=== PATIENT | male | born 1935 | race Caucasian/White ===

== ENCOUNTER 2019-01-07 18:46 | Inpatient (IN) | payer MEDICARE, OTHER ==
[~2019-01-07] VITALS: Ht 179 cm; Wt 74.8 kg
[2019-01-07] MEDS ORDERED: NS IV 1000 ML 1,000 ML IV SCH (19:43)
[2019-01-07] MEDS ORDERED: NS IV 500 ML 500 ML IV ONE (19:43)
--- NOTE | 2019-01-07 19:43 | ED Syncope ---
General Chief Complaint: Dizziness/Syncope Stated Complaint: DIZZINESS; BP 101/50; HR 100 Nursing Triage Note: PT AMBULATE TO ROOM FS06 WITHOUT DIFFICULTY. PT C/O DIZZYNESS SINCE THIS MORNING AND A LOW DIASTOLIC BP WITH INCREASED PULSE. PT STATES HE IS NORMALLY DIZZY IN THE MORNING AND IT GOES AWAY BUT TODAY THE DIZZYNESS CONTINUED THROUGHOUT THE DAY. PT STATES HX OF AFIB. Source of Information: Patient Exam Limitations: No Limitations History of Present Illness Date Seen by Provider: Jan 07, 2019 Time Seen by Provider: 19:30 Initial Comments Pt here with near syncop/dizziness when he first got out of bed. THat is not unusual for him but it persisted throughout the day. He has not had a fall or passed out completely. Not on diuretics of BB's. Takes lisinopril. No CAD or CHF. No swelling, SOA or palpitations, CP. No S/S of infection, belly pain, N/V/D/C. No fever. He has noted his BP to be low all day around 100 systolic. Allergies and Home Medications Allergies Coded Allergies: No Known Drug Allergies (Unverified , 01/07/19) Patient Home Medication List Home Medication List Reviewed: Yes Review of Systems Constitutional: No chills, No diaphoresis EENTM: No ear discharge, No hearing loss Respiratory: cough; No dyspnea on exertion, No phlegm, No short of breath Cardiovascular: No edema; Hx of Intervention; No vascular heart diseas Gastrointestinal: No abdominal pain, No constipation, No diarrhea Genitourinary: No discharge, No dysuria Musculoskeletal: No back pain, No joint pain Skin: No pruritus, No rash Psychiatric/Neurological: Denies Headache, Denies Numbness, Denies Paresthesia Past Mqzcfsd-Bjnrpt-Lhtlzh Hx Patient Social History Alcohol Use: Denies Use Recreational Drug Use: No Smoking Status: Never a Smoker Recent Foreign Travel: No Contact w/Someone Who Travel: No Recent Infectious Disease Expo: No Physical Abuse: No Sexual Abuse: No Mistreated: No Fear: No Physical Exam Vital Signs Vital Signs - First Documented 01/07/19 19:31 Temp 36.5 Pulse 85 Resp 16 B/P (MAP) 107/71 (83) Pulse Ox 98 O2 Delivery Room Air Capillary Refill : Less Than 3 Seconds Height, Weight, BMI Height: '" Weight: lbs. oz. kg; 24.00 BMI Method: General Appearance: No Apparent Distress, WD/WN HEENT: PERRL/EOMI, TMs Normal, Normal ENT Inspection, Pharynx Normal, Moist Mucous Membranes Neck: Full Range of Motion, Normal Inspection, Non Tender Cardiovascular: Regular Rate, Rhythm, No Edema, Normal Peripheral Pulses Respiratory: Chest Non Tender, Lungs Clear, Normal Breath Sounds, No Accessory Muscle Use, No Respiratory Distress Gastrointestinal: Normal Bowel Sounds, Non Tender, Soft Extremities: Normal Capillary Refill, Normal Inspection, No Pedal Edema Neurologic/Psychiatric: Alert, Oriented x3 Cranial Nerves: Normal Hearing, Normal Speech, PERRL Skin: Normal Color, Warm/Dry Progress/Results/Core Measures Results/Orders Lab Results Laboratory Tests Test 01/07/19 19:15 01/07/19 19:51 Range/Units Urine Color YELLOW Urine Clarity CLEAR Urine pH 5.5 5-9 Urine Specific [place] 1.025 H 1.016-1.022 Urine Protein NEGATIVE NEGATIVE Urine Glucose (UA) NEGATIVE NEGATIVE Urine Ketones NEGATIVE NEGATIVE Urine Nitrite NEGATIVE NEGATIVE Urine Bilirubin NEGATIVE NEGATIVE Urine Urobilinogen 0.2 NORMAL MG/DL Urine Leukocyte Esterase NEGATIVE NEGATIVE Urine RBC (Auto) NEGATIVE NEGATIVE Urine RBC RARE /HPF Urine WBC 0-2 /HPF Urine Squamous Epithelial Cells 5-10 /HPF Urine Crystals NONE /LPF Urine Bacteria NEGATIVE /HPF Urine Casts NONE /LPF Urine Mucus NEGATIVE /LPF Urine Culture Indicated NO White Blood Count 5.7 4.3-11.0 10^3/uL Red Blood Count 3.61 L 4.35-5.85 10^6/uL Hemoglobin 11.6 L 13.3-17.7 G/DL Hematocrit 35 L 40-54 % Mean Corpuscular Volume 98 80-99 FL Mean Corpuscular Hemoglobin 32 25-34 PG Mean Corpuscular Hemoglobin Concent 33 32-36 G/DL Red Cell Distribution Width 13.5 10.0-14.5 % Platelet Count 248 130-400 10^3/uL Mean Platelet Volume 10.0 7.4-10.4 FL Neutrophils (%) (Auto) 61 42-75 % Lymphocytes (%) (Auto) 20 12-44 % Monocytes (%) (Auto) 13 H 0-12 % Eosinophils (%) (Auto) 6 0-10 % Basophils (%) (Auto) 0 0-10 % Neutrophils # (Auto) 3.5 1.8-7.8 X 10^3 Lymphocytes # (Auto) 1.1 1.0-4.0 X 10^3 Monocytes # (Auto) 0.7 0.0-1.0 X 10^3 Eosinophils # (Auto) 0.3 0.0-0.3 10^3/uL Basophils # (Auto) 0.0 0.0-0.1 10^3/uL Sodium Level 138 135-145 MMOL/L Potassium Level 4.4 3.6-5.0 MMOL/L Chloride Level 106 98-107 MMOL/L Carbon Dioxide Level 24 21-32 MMOL/L Anion Gap 8 5-14 MMOL/L Blood Urea Nitrogen 27 H 7-18 MG/DL Creatinine 1.33 H 0.60-1.30 MG/DL Estimat Glomerular Filtration Rate 51 BUN/Creatinine Ratio 20 Glucose Level 184 H 70-105 MG/DL Calcium Level 9.3 8.5-10.1 MG/DL Corrected Calcium 9.7 8.5-10.1 MG/DL Total Bilirubin 0.2 0.1-1.0 MG/DL Aspartate Amino Transf (AST/SGOT) 17 5-34 U/L Alanine Aminotransferase (ALT/SGPT) 12 0-55 U/L Alkaline Phosphatase 57 40-136 U/L Troponin I 0.32 *H <0.30 NG/ML Pro-B-Type Natriuretic Peptide 1890.0 H <75.0 PG/ML Total Protein 6.0 L 6.4-8.2 GM/DL Albumin 3.5 3.2-4.5 GM/DL My Orders Orders - CHRISTINA BEAL Cbc With Automated Diff (01/07/19 19:43) Comprehensive Metabolic Panel (01/07/19 19:43) Ua Culture If Indicated (01/07/19 19:43) Troponin I (01/07/19 19:43) Probnp Fs (01/07/19 19:43) Chest Pa/Lat (2 View) (01/07/19 19:43) Ed Iv/Invasive Line Start (01/07/19 19:43) Ns Iv 500 Ml (Sodium Chloride 0.9%) (01/07/19 19:43) Ns Iv 1000 Ml (Sodium Chloride 0.9%) (01/07/19 19:43) Orthostatic Vital Signs (Adult (01/07/19 19:43) Continuous Ekg Monitoring (01/07/19 19:43) Ekg Tracing (01/07/19 19:43) Aspirin Chewable Tablet (Baby Aspirin Ch (01/07/19 21:30) Ekg Tracing (01/07/19 21:19) Enoxaparin Injection (Lovenox Injection) (01/07/19 22:30) Metoprolol Succinate (Xl) Tab (Toprol Xl (01/07/19 23:00) Medications Given in ED Current Medications Medications Dose Ordered Sig/Gena Route Start Time Stop Time Status Last Admin Dose Admin Aspirin 324 mg ONCE ONCE PO 01/07/19 21:30 01/07/19 21:31 DC 01/07/19 21:36 324 MG Enoxaparin Sodium 80 mg ONCE ONCE SC 01/07/19 22:30 01/07/19 22:31 DC 01/07/19 22:36 80 MG Metoprolol Succinate 25 mg ONCE ONCE PO 01/07/19 23:00 01/07/19 23:01 DC 01/07/19 23:35 25 MG Sodium Chloride 500 ml @ 0 mls/hr Q0M ONCE IV 01/07/19 19:43 01/07/19 19:48 DC 01/07/19 21:00 999 MLS/HR Vital Signs/I&O 01/07/19 01/07/19 19:31 20:30 Temp 36.5 Pulse 85 70 80 75 Resp 16 B/P (MAP) 107/71 (83) 98/58 (71) 100/46 (64) 97/51 (66) Pulse Ox 98 O2 Delivery Room Air 01/08/19 00:00 Intake Total 1500 ml Balance 1500 ml Blood Pressure Mean: 83 Progress Progress Note : Time: 22:43 Progress Note Aspirin, Lovenox, metoprolol 25, transferred via [facility]. Initial ECG Impression Date: Jan 07, 2019 Initial ECG Impression Time: 19:52 Initial ECG Rate: 79 Initial ECG Rhythm: A Fib/Flutter Initial ECG Intervals: QT (436) Initial ECG Impression: Nonspecific Changes, Atrial Fibrillation Comment Atrial fibrillation without clinically significant ST elevation or depression. EKG : EKG Time: 21:21 Rate: 88 Rhythm: A Fib/Flutter Intervals: QT (484) ECG Comparisson: Unchanged ECG Impression: Nonspecific Changes, Atrial Fibrillation Comment Atrial fibrillation without ST elevation or depression. Departure Communication (Admissions) Time/Spoke to Admitting Phy: 20:25 Dr. Hay agrees to admit the patient for a non-STEMI. Time/Spoke to Consulting Phy: 20:20 Dr. Fonseca agrees to consult on the patient. He agrees with aspirin, Lovenox. Impression Primary Impression: NSTEMI (non-ST elevated myocardial infarction) Additional Impression: Near syncope Disposition: ADMITTED INPATIENT Condition: Stable Admissions Decision to Admit Reason: Admit from ER (General) Decision to Admit/Date: Jan 07, 2019 Time/Decision to Admit Time: 20:00 Departure-Patient Inst. Referrals: TJ SALES APRN (PCP) Primary Care Physician [facility]/JONNY (Family) Primary Care Physician CHRISTINA BEAL Jan 07, 2019 19:43
[2019-01-07 19:52] LABS: BACTERIA,URINE NEGATIVE /HPF; BILIRUBIN,URINE NEGATIVE (NEGATIVE); CLARITY,URINE CLEAR; COLOR,URINE YELLOW; GLUCOSE, URINE (UA) NEGATIVE (NEGATIVE); KETONES,URINE NEGATIVE (NEGATIVE); LEUKOCYTE ESTERASE ,URINE NEGATIVE (NEGATIVE); NITRITE,URINE NEGATIVE (NEGATIVE); PH,URINE 5.5 (5-9); PROTEIN,URINE NEGATIVE (NEGATIVE); RBC,URINE RARE /HPF; UROBILINOGEN,URINE 0.2 MG/DL (NORMAL); WBC,URINE 0-2 /HPF
[2019-01-07 20:22] LABS: BASOPHILS % (AUTO) 0 % (0-10); EOSINOPHILS # (AUTO) 0.3 10^3/uL (0.0-0.3); EOSINOPHILS % (AUTO) 6 % (0-10); HEMATOCRIT 35 % (40-54); HEMOGLOBIN 11.6 G/DL (13.3-17.7); LYMPHOCYTES # (AUTO) 1.1 X 10^3 (1.0-4.0); LYMPHOCYTES % (AUTO) 20 % (12-44); MEAN CORPUSCULAR HEMOGLOBIN 32 PG (25-34); MEAN CORPUSCULAR HGB CONC 33 G/DL (32-36); MEAN CORPUSCULAR VOLUME 98 FL (80-99); MONOCYTES # (AUTO) 0.7 X 10^3 (0.0-1.0); MONOCYTES % (AUTO) 13 % (0-12); NEUTROPHILS # (AUTO) 3.5 X 10^3 (1.8-7.8); NEUTROPHILS % (AUTO) 61 % (42-75); PLATELET COUNT 248 10^3/uL (130-400); RED CELL DISTRIBUTION WIDTH 13.5 % (10.0-14.5); WHITE BLOOD COUNT 5.7 10^3/uL (4.3-11.0)
[2019-01-07 20:30] VITALS: BP_SYST 100; BP_SYST 97; BP_SYST 98; BP_DIAS 46; BP_DIAS 51; BP_DIAS 58
[2019-01-07 20:37] LABS: BILIRUBIN,TOTAL 0.2 MG/DL (0.1-1.0); CALCIUM 9.3 MG/DL (8.5-10.1); CREATININE SERUM 1.33 MG/DL (0.60-1.30); POTASSIUM 4.4 MMOL/L (3.6-5.0)
[2019-01-07 20:38] LABS: ALBUMIN 3.5 GM/DL (3.2-4.5)
--- NOTE | 2019-01-07 20:56 | Diagnostic Imaging Report ---
INDICATION: Dizziness and tachycardia PA and lateral views of the chest are obtained. No previous studies available at this time for comparison. There is mild air trapping, bilaterally. Prominent interstitial markings are seen throughout the lungs. There is no evidence of pneumothorax, consolidation or pleural fluid. There is mild diffuse thoracic spondylosis. Monitoring leads overlie the chest. IMPRESSION: Findings indicate emphysema without other acute abnormality appreciated. Dictated by: Dictated on workstation # [id number]
[2019-01-07] MEDS ORDERED: ASPIRIN 81 MG CHEW (CHILDREN'S ASA) PO ONE (21:30)
[2019-01-07] MEDS ORDERED: ENOXAPARIN 80 MG/0.8 ML (LOVENOX) SYR SC ONE (22:30)
[2019-01-08] VITALS (13 sets, daily range): BP systolic 73–121; BP diastolic 50–75
--- NOTE | 2019-01-08 00:16 | NUR ---
TAYLOR CANCINO admitted to room CU2-1, with an admitting diagnosis of NSTEMI, on 01/07/19 from [facility] via [facility], accompanied by [facility]. TAYLOR CANCINO introduced to surroundings, call light, bed controls, phone, TV, temperature control, lights, meal times, smoking policy, visitor policy, side rail policy, bathrooms and showers. Patient Rights given to patient in the handbook. TAYLOR CANCINO verbalizes understanding that [facility] is not responsible for the loss or damage to any personal effects or valuables that are kept in the patients possession during their hospitalization.
--- NOTE | 2019-01-08 00:29 | NUR ---
CALLED [facility] TO OBTAIN REPORT FROM JAIME JAMES.
[2019-01-08] MEDS ORDERED: 1/2 NS IV SOLUTION 1,000 ML IV ONE (00:56)
[2019-01-08] MEDS ORDERED: morphine INJ 4 MG/ML 1 ML (VIAL/SYRINGE) IV PRN (02:00)
[2019-01-08] MEDS ORDERED: NITROGLYCERIN 0.4 MG SL TABS BTL 25'S SL PRN (02:00)
[2019-01-08] MEDS ORDERED: ONDANSETRON 4 MG/2 ML (SDV) Z0FRAN IV PRN (02:00)
[2019-01-08 02:11] LABS: BASOPHILS % (AUTO) 0 % (0-10); EOSINOPHILS # (AUTO) 0.3 10^3/uL (0.0-0.3); EOSINOPHILS % (AUTO) 6 % (0-10); HEMATOCRIT 32 % (40-54); HEMOGLOBIN 10.5 G/DL (13.3-17.7); LYMPHOCYTES # (AUTO) 1.3 X 10^3 (1.0-4.0); LYMPHOCYTES % (AUTO) 23 % (12-44); MEAN CORPUSCULAR HEMOGLOBIN 33 PG (25-34); MEAN CORPUSCULAR HGB CONC 33 G/DL (32-36); MEAN CORPUSCULAR VOLUME 99 FL (80-99); MEAN PLATELET VOLUME 10.1 FL (7.4-10.4); MONOCYTES # (AUTO) 0.8 X 10^3 (0.0-1.0); MONOCYTES % (AUTO) 14 % (0-12); NEUTROPHILS # (AUTO) 3.1 X 10^3 (1.8-7.8); NEUTROPHILS % (AUTO) 56 % (42-75); PLATELET COUNT 202 10^3/uL (130-400); RED CELL DISTRIBUTION WIDTH 13.7 % (10.0-14.5); WHITE BLOOD COUNT 5.5 10^3/uL (4.3-11.0)
[2019-01-08] MEDS: 1/2 NS IV SOLUTION 1,000 ML IV SCH ×4 (02:26→22:50)
[2019-01-08 02:28] LABS: ALANINE AMINOTRANSFERASE 10 U/L (0-55); ALBUMIN 3.2 GM/DL (3.2-4.5); ALKALINE PHOSPHATASE 45 U/L (40-136); BILIRUBIN,TOTAL 0.3 MG/DL (0.1-1.0); BUN/CREATININE RATIO 17; CALCIUM 8.5 MG/DL (8.5-10.1); CARBON DIOXIDE 23 MMOL/L (21-32); CHLORIDE 109 MMOL/L (98-107); CREATININE SERUM 1.36 MG/DL (0.60-1.30); GFR ESTIMATED 50; GLUCOSE 196 MG/DL (70-105); POTASSIUM 3.9 MMOL/L (3.6-5.0); SODIUM 140 MMOL/L (135-145)
[2019-01-08] MEDS: inSUlin ASPART (NovoLOG) 1 UNIT/0.01 ML (CHARGE PER UNIT) SC SCH ×4 (06:00→20:21)
--- NOTE | 2019-01-08 07:57 | Diagnostic Imaging Report ---
INDICATION: Heart disease. Comparison made with prior examination 01/07/2019. FINDINGS: Heart size is stable. There is some air-trapping compatible with COPD. Patchy right base infiltrate. There is no pleural effusion or pneumothorax. Mediastinum is unremarkable. IMPRESSION: COPD with patchy right base infiltrate. Superimposed pneumonia certainly cannot be excluded. Recommend clinical correlation. Dictated by: Dictated on workstation # [id number]
[2019-01-08] MEDS ORDERED: ENOXAPARIN 100 MG/1 ML (LOVENOX) SYR SC SCH (08:15)
[2019-01-08] MEDS: ASPIRIN E.C. 81 MG (ECOTRIN) TAB PO SCH (08:16)
[2019-01-08] MEDS: meTOprolol TARTRATE 25 MG (LOPRESSOR) TABLET PO SCH ×2 (08:16→20:21)
--- NOTE | 2019-01-08 08:19 | Consultation-Cardiology ---
HPI-Cardiology Cardiology Consultation Date of Consultation 01/08/19 Date of Admission Time Seen by Provider: 08:13 Indication: atrial fibrillation HPI 83 years old gentleman with history of hypertension, reporting one episode of atrial fibrillation in the remote past after next surgery. Woke up yesterday feeling lightheaded and dizzy, noted to be hypotensive, has been having o rthostatic dizziness persisted throughout the day came into the emergency room and noted to be hypotensive. Denied any chest pain. Denied any palpitation. Denied any syncope or near syncopal episodes. No claudications. Home Medications & Allergies Allergies: Coded Allergies: No Known Drug Allergies (Unverified , 01/07/19) Home Medication List Reviewed: Yes WOV-Boicfr-Reeacq Hx Patient Social History Marital Status: Employed/Student: retired Alcohol Use: Denies Use Recreational Drug Use: No Smoking Status: Never a Smoker Type Used: Cigars 2nd Hand Smoke Exposure: No Recent Foreign Travel: No Recent Infectious Disease Expo: No Recent Hopitalizations: No Immunizations Up To Date Date of Pneumonia Vaccine: Jan 09, 2016 Past Medical History Discussed below Family Medical History Family History: CANCER 19 MOTHER Review of Systems-General Review of Systems Constitutional: see HPI; No chills, No diaphoresis; dizziness, malaise EENTM: see HPI; No ear discharge, No hearing loss Respiratory: see HPI, cough; No dyspnea on exertion, No phlegm, No short of breath Cardiovascular: see HPI; No chest pain, No edema, No Hx of Intervention, No palpitations, No syncope, No vascular heart diseas, No other Gastrointestinal: no symptoms reported, see HPI; No abdominal pain, No constipation, No diarrhea Genitourinary: no symptoms reported, see HPI; No discharge, No dysuria Musculoskeletal: no symptoms reported, see HPI; No back pain, No joint pain Skin: no symptoms reported, see HPI; No pruritus, No rash Psychiatric/Neurological: No Symptoms Reported, See HPI; Denies Headache, Denies Numbness, Denies Paresthesia Reviewed Test Results Reviewed Test Results Lab Laboratory Tests Test 01/07/19 19:15 01/07/19 19:51 01/08/19 02:02 01/08/19 08:03 Range/Units Urine Color YELLOW Urine Clarity CLEAR Urine pH 5.5 5-9 Urine Specific [place] 1.025 H 1.016-1.022 Urine Protein NEGATIVE NEGATIVE Urine Glucose (UA) NEGATIVE NEGATIVE Urine Ketones NEGATIVE NEGATIVE Urine Nitrite NEGATIVE NEGATIVE Urine Bilirubin NEGATIVE NEGATIVE Urine Urobilinogen 0.2 NORMAL MG/DL Urine Leukocyte Esterase NEGATIVE NEGATIVE Urine RBC (Auto) NEGATIVE NEGATIVE Urine RBC RARE /HPF Urine WBC 0-2 /HPF Urine Squamous Epithelial Cells 5-10 /HPF Urine Crystals NONE /LPF Urine Bacteria NEGATIVE /HPF Urine Casts NONE /LPF Urine Mucus NEGATIVE /LPF Urine Culture Indicated NO White Blood Count 5.7 5.5 4.3-11.0 10^3/uL Red Blood Count 3.61 L 3.22 L 4.35-5.85 10^6/uL Hemoglobin 11.6 L 10.5 L 13.3-17.7 G/DL Hematocrit 35 L 32 L 40-54 % Mean Corpuscular Volume 98 99 80-99 FL Mean Corpuscular Hemoglobin 32 33 25-34 PG Mean Corpuscular Hemoglobin Concent 33 33 32-36 G/DL Red Cell Distribution Width 13.5 13.7 10.0-14.5 % Platelet Count 248 202 130-400 10^3/uL Mean Platelet Volume 10.0 10.1 7.4-10.4 FL Neutrophils (%) (Auto) 61 56 42-75 % Lymphocytes (%) (Auto) 20 23 12-44 % Monocytes (%) (Auto) 13 H 14 H 0-12 % Eosinophils (%) (Auto) 6 6 0-10 % Basophils (%) (Auto) 0 0 0-10 % Neutrophils # (Auto) 3.5 3.1 1.8-7.8 X 10^3 Lymphocytes # (Auto) 1.1 1.3 1.0-4.0 X 10^3 Monocytes # (Auto) 0.7 0.8 0.0-1.0 X 10^3 Eosinophils # (Auto) 0.3 0.3 0.0-0.3 10^3/uL Basophils # (Auto) 0.0 0.0 0.0-0.1 10^3/uL Sodium Level 138 140 135-145 MMOL/L Potassium Level 4.4 3.9 3.6-5.0 MMOL/L Chloride Level 106 109 H 98-107 MMOL/L Carbon Dioxide Level 24 23 21-32 MMOL/L Anion Gap 8 8 5-14 MMOL/L Blood Urea Nitrogen 27 H 23 H 7-18 MG/DL Creatinine 1.33 H 1.36 H 0.60-1.30 MG/DL Estimat Glomerular Filtration Rate 51 50 BUN/Creatinine Ratio 20 17 Glucose Level 184 H 196 H 70-105 MG/DL Calcium Level 9.3 8.5 8.5-10.1 MG/DL Corrected Calcium 9.7 9.1 8.5-10.1 MG/DL Total Bilirubin 0.2 0.3 0.1-1.0 MG/DL Aspartate Amino Transf (AST/SGOT) 17 18 5-34 U/L Alanine Aminotransferase (ALT/SGPT) 12 10 0-55 U/L Alkaline Phosphatase 57 45 40-136 U/L Troponin I 0.32 *H < 0.028 <0.028 NG/ML Pro-B-Type Natriuretic Peptide 1890.0 H <75.0 PG/ML Total Protein 6.0 L 5.0 L 6.4-8.2 GM/DL Albumin 3.5 3.2 3.2-4.5 GM/DL Physical Exam Physical Exam Vital Signs Vital Signs - First Documented 01/07/19 19:31 Temp 36.5 Pulse 85 Resp 16 B/P (MAP) 107/71 (83) Pulse Ox 98 O2 Delivery Room Air Capillary Refill : Less Than 3 Seconds Height, Weight, BMI Height: '" Weight: 161lbs. 0.5oz. [id number]; 24.18 BMI Method: General Appearance: No Apparent Distress, WD/WN HEENT: PERRL/EOMI, TMs Normal, Normal ENT Inspection, Pharynx Normal, Moist Mucous Membranes Neck: Full Range of Motion, Normal Inspection, Non Tender Respiratory: Chest Non Tender, Lungs Clear, Normal Breath Sounds, No Accessory Muscle Use, No Respiratory Distress Cardiovascular: No Edema, Normal Peripheral Pulses, Irregularly Irregular Gastrointestinal: Normal Bowel Sounds, Non Tender, Soft Extremity: Normal Capillary Refill, Normal Inspection, No Pedal Edema Neurologic/Psychiatric: Alert, Oriented x3 Skin: Normal Color, Warm/Dry A/P-Cardiology Admission Diagnosis Dizziness Acute atrial fibrillation Hypotension Diabetes mellitus Assessment/Plan Dizziness and lightheadedness, probably secondary to hypotension, receiving IV fluid. Continue to monitor. New-onset atrial fibrillation, had one episode of atrial fibrillation in the remote past after neck surgery. Rate is controlled, I'll start him on Lovenox and continue beta blockers, if he did not convert overnight we will consider OLIVIA and cardioversion Mild elevation in initial troponin returned to normal, no significant abnormality was noted, probably normal variant. Borderline hypotension, has been on lisinopril, it is on hold at this time and we're using beta blockers, continue IV fluid and monitor Diabetes mellitus, followed and managed by primary care physician History of neck surgery Clinical Quality Measures DVT/VTE Risk/Contraindication: Risk Factor Score Per Nursin RFS Level Per Nursing on Admit: 2=Moderate KATTY JORDAN MD Jan 08, 2019 08:19
[2019-01-08] MEDS ORDERED: MULT-850 PO (10:07)
[2019-01-08] MEDS ORDERED: OMEP20TA33 PO (10:07)
[2019-01-08] MEDS ORDERED: LISI10TA2 PO (10:07)
[2019-01-08] MEDS ORDERED: METF-399 PO (10:07)
[2019-01-08] MEDS ORDERED: ALFU10TA11 PO (10:07)
[2019-01-08] MEDS ORDERED: FINA5TAB6 PO (10:07)
[2019-01-08] MEDS ORDERED: FOLI0.4T2 PO (10:07)
[2019-01-08] MEDS ORDERED: GLIP5TAB13 PO (10:07)
[2019-01-08] MEDS ORDERED: NIAC1CAP PO (10:07)
[2019-01-08] MEDS: ENOXAPARIN 80 MG/0.8 ML (LOVENOX) SYR SC SCH ×2 (10:10→20:21)
[2019-01-08] MEDS ORDERED: SILD20TA14 PO (10:11)
[2019-01-08] MEDS ORDERED: METH2.5T PO (10:11)
[2019-01-08] MEDS ORDERED: SIMV20TA3 PO (10:13)
--- NOTE | 2019-01-08 10:15 | NUR ---
SPOKE WITH THE PATIENT ABOUT HIS MEDICATIONS. HE WAS ABLE TO LIST THEM TO ME WITH THE STRENGTHS AND FREQUENCIES. I VERIFIED IT WITH THE EXT MED HX. IN ADDITION TO THE EXT MED HX [facility] FILLED: 11-17-18 SIMVASTATIN 20MG HS #90 [facility] FILLED: 12-18-18 VIAGRA 20MG PRN HE ALSO RECEIVES METHOTREXATE 2.5MG TABS FROM [facility], HE STATES HE TAKES 10MG ON WEDNESDAYS. 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 OTC MEDS: FOLIC ACID 0.4MG 3 TABS ON DAYS HE IS NOT TAKING METHOTREXATE (ALL DAYS BUT SAT) CENTRUM SILVER DAILY NIACIN HS PRILOSEC PRN
--- NOTE | 2019-01-08 11:00 | NUR ---
Attempted visit: Pt and female visitor in room resting with eyes closed at this time.
--- NOTE | 2019-01-08 12:50 | History & Physical-Hospitalist ---
History of Present Illness HPI/Chief Complaint Chief complaint: Dizziness HPI: This is a 83yoWM clinic [facility] had no cardiac history who presents with dizziness found to have elevated Troponin at [facility] and found to have Atrial Fibrillation with rapid ventricular response. Pt had an uneventful night in cardiac step-down. Dr. Fonseca has been consulted and will perform a OLIVIA with cardioversion tomorrow if he still remains in Atrial- Fibrillation and Pt will be able to eat his meals today and then NPO after midnight for procedure. 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 Source: patient Exam Limitations: no limitations Date Seen 01/08/19 Time Seen by a Provider: 09:00 Attending Physician Tyra Bess Amanda S Aprn Referring Physician Date of Admission Jan 07, 2019 at 22:45 Home Medications & Allergies Home Medications Reviewed patient Home Medication Reconciliation performed by pharmacy medication reconciliations networking technician and/or nursing. Patients Allergies have been reviewed. Allergies Allergies Coded Allergies No Known Drug Allergies (Unverified01/07/19) Past Czpfgmb-Temtsj-Wodhmk Hx Past Med/Social Hx: Reviewed Nursing Past Med/Soc Hx, Reviewed and Corrections made Patient Social History Marrital Status: , cohabiting Employed/Student: retired Alcohol Use: Denies Use Recreational Drug Use: No Smoking Status: Never a Smoker Former Smoker, Quit: Dec 21, 1996 Type Used: Cigars 2nd Hand Smoke Exposure: No Recent Foreign Travel: No Contact w/other who traveled: No Recent Hopitalizations: No Recent Infectious Disease Expo: No Immunizations Up To Date Date of Pneumonia Vaccine: Jan 09, 2016 Seasonal Allergies Seasonal Allergies: Yes Past Medical History Surgeries: Appendectomy Cardiac: High Cholesterol, Hypertension Genitourinary: Prostate Problems Endocrine: Diabetes, Non-Insulin dep HEENT: Cataract Loss of Vision: Denies Hearing Impairment: Hard of Hearing, Hearing Aide Right, Hearing Aide Left Skin/Integumentary: Psoriasis History of Blood Disorders: No Family History CANCER 19 MOTHER Review of Systems Constitutional: see HPI, dizziness Cardiovascular: chest pain, palpitations Physical Exam Physical Exam Vital Signs Vital Signs - First Documented 01/07/19 19:31 Temp 36.5 Pulse 85 Resp 16 B/P (MAP) 107/71 (83) Pulse Ox 98 O2 Delivery Room Air Capillary Refill : Less Than 3 Seconds Height, Weight, BMI Height: '" Weight: 161lbs. 0.5oz. 73.522277lj; 24.18 BMI Method: General Appearance: No Apparent Distress, WD/WN Eyes: Right Eye Normal Inspection, Right Eye PERRL HEENT: PERRL/EOMI, Normal ENT Inspection, Pharynx Normal, Moist Mucous Membranes Neck: Full Range of Motion, Normal Inspection, Non Tender Respiratory: Chest Non Tender, Lungs Clear, Normal Breath Sounds, No Accessory Muscle Use, No Respiratory Distress Cardiovascular: No Edema, No Gallop, No JVD, No Murmur, Normal Peripheral Pulses, Irregularly Irregular Gastrointestinal: Normal Bowel Sounds, No Organomegaly, No Pulsatile Mass, Non Tender, Soft Back: Normal Inspection, No CVA Tenderness, No Vertebral Tenderness Extremity: Normal Capillary Refill, Normal Inspection, Normal Range of Motion, Non Tender, No Calf Tenderness, No Pedal Edema Neurologic/Psychiatric: Alert, Oriented x3, No Motor/Sensory Deficits, Normal Mood/Affect Skin: Normal Color, Warm/Dry Lymphatic: No Adenopathy Results Results/Procedures Labs Laboratory Tests 01/07/19 19:51 01/08/19 02:02 Patient resulted labs reviewed. Assessment/Plan Admission Diagnosis Assessment: AF w/RVR NSTEMI Plan: Appreciate Dr Marian BAKER Admission Status: Inpatient Order (span 2 midnights) Reason for Inpatient Admission: NSTEMI with AF w/RVR Diagnosis/Problems Diagnosis/Problems (1) Near syncope Status: Acute (2) Troponin level elevated Status: Acute (3) NSTEMI (non-ST elevated myocardial infarction) Status: Acute (4) Atrial fibrillation with rapid ventricular response Status: Acute Clinical Quality Measures DVT/VTE Risk/Contraindication: Risk Factor Score Per Nursin RFS Level Per Nursing on Admit: 2=Moderate TYRA BESS DO Jan 08, 2019 12:50
[2019-01-09] VITALS (9 sets, daily range): BP systolic 104–136; BP diastolic 67–133
[2019-01-09 03:45] LABS: HEMOGLOBIN 11.2 G/DL (13.3-17.7); MEAN PLATELET VOLUME 10.4 FL (7.4-10.4); RED CELL DISTRIBUTION WIDTH 14.1 % (10.0-14.5); WHITE BLOOD COUNT 5.3 10^3/uL (4.3-11.0)
[2019-01-09 04:19] LABS: ALBUMIN 3.3 GM/DL (3.2-4.5); BILIRUBIN,TOTAL 0.3 MG/DL (0.1-1.0); CALCIUM 8.4 MG/DL (8.5-10.1); CREATININE SERUM 1.2 MG/DL (0.60-1.30); MAGNESIUM 1.7 MG/DL (1.6-2.4); POTASSIUM 3.9 MMOL/L (3.6-5.0); TOTAL PROTEIN 5.3 GM/DL (6.4-8.2)
[2019-01-09] MEDS: inSUlin ASPART (NovoLOG) 1 UNIT/0.01 ML (CHARGE PER UNIT) SC SCH ×4 (05:58→21:41)
--- NOTE | 2019-01-09 07:44 | Cardiology Progress Note ---
Subjective Date Seen by Provider: Jan 09, 2019 Time Seen by Provider: 07:43 Subjective/Events-last exam Patient is in bed, feeling better, less dizzy Review of Systems General: No Chills, No Night Sweats, No Fatigue, No Malaise, No Appetite, No Other HEENT: No Head Aches, No Visual Changes, No Eye Pain, No Ear Pain, No Dysphasia, No Sinus Congestion, No Post Nasal Drip, No Sore Throat, No Other Pulmonary: No Dyspnea, No Cough, No Pleuritic Chest Pain, No Other Cardiovascular: No: Chest Pain, Palpitations, Orthopnea, Paroxysmal Noc. Dyspnea, Edema, Lt Headedness, Other Objective-Cardiology Exam Last Set of Vital Signs Vital Signs 01/09/19 01/09/19 03:30 04:00 Temp 36.4 Pulse 71 Resp 11 B/P (MAP) 105/96 (99) Pulse Ox 97 O2 Delivery Room Air Capillary Refill : Less Than 3 Seconds I&O Intake and Output 01/09/19 00:00 Intake Total 1910 ml Output Total 2175 ml Balance -265 ml Intake Oral 910 ml IV Total 1000 ml Output Urine Total 2175 ml # Voids 2 # Bowel Movements 1 Daily Weight Change No General: Alert, Oriented X3, Cooperative HEENT: Atraumatic, PERRLA Neck: Supple, No JVD, No Thyromegaly Lungs: Clear to Auscultation, Normal Air Movement Heart: Regular Rate, Normal S1, Normal S2, No Murmurs Abdomen: Normal Bowel Sounds, Soft, No Tenderness, No Hepatosplenomegaly, No Masses Extremities: No Clubbing, No Cyanosis, No Edema, Normal Pulses, No Tenderness/Swelling Skin: No Rashes, No Breakdown, No Significant Lesion Neuro: Normal Gait, Normal Speech, Strength at 5/5 X4 Ext, Normal Tone, Sensation Intact Psych/Mental Status: Mental Status NL, Mood NL Results Lab Laboratory Tests 01/09/19 03:00 A/P-Cardiology Admission Diagnosis Dizziness Acute atrial fibrillation Hypotension Diabetes mellitus Assessment/Plan Dizziness and lightheadedness, better at this time. Continue to monitor New-onset atrial fibrillation, had one episode of atrial fibrillation in the remote past after neck surgery. Maintained on Lovenox, planning for OLIVIA and electrical cardioversion today Mild elevation in initial troponin returned to normal, no significant abnormality was noted, probably normal variant. Borderline hypotension, has been on lisinopril, it is on hold at this time and we're using beta blockers, continue IV fluid and monitor Diabetes mellitus, followed and managed by primary care physician History of neck surgery Clinical Quality Measures DVT/VTE Risk/Contraindication: Risk Factor Score Per Nursin RFS Level Per Nursing on Admit: 2=Moderate KATTY JORDAN MD Jan 09, 2019 07:44
[2019-01-09] MEDS: ENOXAPARIN 80 MG/0.8 ML (LOVENOX) SYR SC SCH (08:40)
[2019-01-09] MEDS ORDERED: LIDOCAINE 2% VISCOUS 15 ML UDC ONE ×2 (10:11→11:49)
[2019-01-09] MEDS ORDERED: proPOfol 200 MG/20 ML (DIPRIVAN) VIAL IV ONE ×2 (10:21→12:14)
--- NOTE | 2019-01-09 11:54 | Progress Note - Hospitalist ---
Subjective HPI/CC On Admission Date Seen by Provider: Jan 09, 2019 Time Seen by Provider: 10:20 Chief complaint: Dizziness HPI: This is a 83yoWM clinic Pt of [facility] who has had no cardiac history who presents with dizziness found to have elevated Troponin at [facility] and found to have Atrial Fibrillation with rapid ventricular response. Pt had an uneventful night in cardiac step-down. Dr. Fonseca has been consulted and will perform a OLIVIA with cardioversion tomorrow if he still remains in Atrial- Fibrillation and Pt will be able to eat his meals today and then NPO after midnight for procedure. 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 Subjective/Events-last exam Patient doing well Family at the bedside Dr. Fonseca will perform OLIVIA and then cardioversion if no thrombosis noted Denies any pain Didn't sleep well last night Review of Systems General: Fatigue Objective Exam Vital Signs Vital Signs Date Time Temp Pulse Resp B/P (MAP) Pulse Ox O2 Delivery O2 Flow Rate FiO2 01/10/19 09:00 96 Room Air 01/10/19 07:00 56 01/10/19 07:00 36.3 01/10/19 04:00 18 130/90 (103) Capillary Refill : Less Than 3 Seconds General Appearance: No Apparent Distress, WD/WN Respiratory: Chest Non Tender, Lungs Clear, Normal Breath Sounds, No Accessory Muscle Use, No Respiratory Distress Cardiovascular: No Edema, No Gallop, No JVD, No Murmur, Normal Peripheral Pulses, Irregularly Irregular Neurologic/Psychiatric: Alert, Oriented x3, No Motor/Sensory Deficits, Normal Mood/Affect Results/Procedures Lab Patient resulted labs reviewed. Assessment/Plan Assessment and Plan Assess & Plan/Chief Complaint Assessment: New-onset atrial fibrillation with rapid ventricular response to undergo OLIVIA with cardioversion today Plan: OLIVIA with cardioversion Dr. Fonseca expertise is appreciated Diagnosis/Problems Diagnosis/Problems (1) Near syncope Status: Acute (2) Troponin level elevated Status: Acute (3) NSTEMI (non-ST elevated myocardial infarction) Status: Acute (4) Atrial fibrillation with rapid ventricular response Status: Acute Clinical Quality Measures DVT/VTE Risk/Contraindication: Risk Factor Score Per Nursin RFS Level Per Nursing on Admit: 2=Moderate JD BESS DO Jan 09, 2019 11:54
--- NOTE | 2019-01-09 12:09 | Cardiac Procedure Note-CS/ASA ---
Pre-Procedure Note Pre-Op Procedure Note H&P Reviewed The H&P was reviewed, patient examined and no changes noted. Date H&P Reviewed: Jan 09, 2019 Time H&P Reviewed: 12:09 Conscious Sedation Pre-Proced Time 12:09 ASA Score 3 For ASA 3 and 4: Consider anesthesia and medical clearance. Also, for patients with a history of failed moderate sedation consider anesthesia. Airway Lungs Heart ASA score ASA 1: a normal healthy patient ASA 2: a patient with a mild systemic disease (mid diabetes, controlled hypertension, obesity x ASA 3: a patient with a severe systemic disease that limits activity (angina, COPD, prior Myocardial infarction) ASA 4: a patient with an incapacitating disease that is a constant threat to life (CHF, renal failure) ASA 5: a moribund patient not expected to survive 24 hrs. (ruptured aneurysm) ASA 6: a declared brain- patient whose organs are being harvested. For emergent operations, add the letter E after the classification Mallampati Classification Grade 3 Sedation Plan Analgesia, Amnesia, Plan communicated to team members, Discussed options with patient/fam, Discussed risks with patient/fam The patient is an appropriate candidate to undergo the planned procedure, sedation, and anesthesia. The patient immediately re-assessed prior to indication. KATTY JORDAN MD Jan 09, 2019 12:09
[2019-01-09] MEDS: 1/2 NS IV SOLUTION 1,000 ML IV SCH ×2 (12:39→21:39)
--- NOTE | 2019-01-09 12:42 | Cardioversion ---
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 Electrical cardioversion was carried out with anesthesia support with propofol. 200 joules of synchronized shock was delivered through external patches which promptly restored sinus rhythm. The patient tolerated the procedure well. Conclusions: Successful electrical cardioversion with no complication Final Diagnosis: Paroxysmal atrial fibrillation Hypertension Palpitation Dizziness KATTY FONSECA MD Jan 09, 2019 12:42
[2019-01-09] MEDS ORDERED: AMIODARONE FOR BOLUS 150 MG in D5W 100 ML IVPB 100 ML IV NR (12:44)
--- NOTE | 2019-01-09 12:45 | NUR ---
BEDSIDE OLIVIA AND CARDIOVERSION DONE BY DR JORDAN. MEDICATIONS GIVEN BY ANESTHESIA, OLIVIA DONE BY BREASTFEEDING EDUCATOR STAFF. PT ON BEDSIDE MONITOR.
--- NOTE | 2019-01-09 12:51 | Anesthesia-Procedure Note ---
Procedures/Interventions Procedure Start/Stop/Diagnosis Date of Procedure: Jan 09, 2019 Start Time: 12:18 Referring Physician: Marian Preprocedural Diagnosis: A-Pipe Brief History Called to ICU bed 2 for scheduled OLIVIA/cardioversion for Dr. Fonseca. Pt supine in bed, brief hx obtained from RN and chart. O2 per NC at 4lpm. All emergency equipment verified. Verbal consent obtained from pt. ASA 3. Pt received a total of 140 mg propofol in increments without complication. VSS. Report to RN, pt opening eyes and following commands at end of anesthesia time. Stop Time: 12:40 Postprocedural Diagnosis: A-Fib MALATHI HAWKINS CRNA Jan 09, 2019 12:51
--- NOTE | 2019-01-09 13:15 | NUR ---
REPORT RECEIVED FROM JAIME Campos. THIS RN TO ASSUME PT CARE.
[2019-01-09] MEDS: AMIODARONE INJECTION 450 MG in D5W IV SOLUTION (EXCEL) 250 ML IV SCH ×2 (13:50→21:45)
--- NOTE | 2019-01-09 14:51 | Anesthesia-General Post-Op ---
MAC Patient Condition Mental Status/LOC: Same as Preop Cardiovascular: Satisfactory Nausea/Vomiting: Absent Respiratory: Satisfactory Pain: Controlled Complications: Absent Post Op Complications Complications None Follow Up Care/Instructions Patient Instructions None needed. Anesthesiology Discharge Order Discharge Order Patient is doing well, no complaints, stable vital signs, no apparent adverse anesthesia problems. No complications reported per nursing. MALATHI HAWKINS CRNA Jan 09, 2019 14:51
[2019-01-09] MEDS: ASPIRIN E.C. 81 MG (ECOTRIN) TAB PO SCH (17:11)
[2019-01-09] MEDS: meTOprolol TARTRATE 25 MG (LOPRESSOR) TABLET PO SCH ×2 (17:11→21:38)
[2019-01-09] MEDS: APIXABAN 5 MG (ELIQUIS) TABLET PO SCH (21:38)
[2019-01-10] VITALS: BP 117/81
[2019-01-10 02:00] VITALS: BP 115/98
[2019-01-10 04:00] VITALS: BP 130/90
[2019-01-10] MEDS: 1/2 NS IV SOLUTION 1,000 ML IV SCH (06:26)
[2019-01-10] MEDS: inSUlin ASPART (NovoLOG) 1 UNIT/0.01 ML (CHARGE PER UNIT) SC SCH (06:35)
--- NOTE | 2019-01-10 07:58 | Cardiology Progress Note ---
Subjective Date Seen by Provider: Jan 10, 2019 Time Seen by Provider: 07:56 Subjective/Events-last exam Patient is feeling well. Denied any chest pain, asking to go home Review of Systems General: No Chills, No Night Sweats, No Fatigue, No Malaise, No Appetite, No Other HEENT: No Head Aches, No Visual Changes, No Eye Pain, No Ear Pain, No Dysphasia, No Sinus Congestion, No Post Nasal Drip, No Sore Throat, No Other Pulmonary: No Dyspnea, No Cough, No Pleuritic Chest Pain, No Other Cardiovascular: No: Chest Pain, Palpitations, Orthopnea, Paroxysmal Noc. Dyspnea, Edema, Lt Headedness, Other Objective-Cardiology Exam Last Set of Vital Signs Vital Signs 01/10/19 07:00 Temp 36.3 Pulse 56 Capillary Refill : Less Than 3 Seconds I&O Intake and Output 01/10/19 00:00 Intake Total 303 ml Output Total 3075 ml Balance -2772 ml Intake Oral 200 ml IV Total 103 ml Output Urine Total 3075 ml General: Alert, Oriented X3, Cooperative HEENT: Atraumatic, PERRLA Neck: Supple, No JVD, No Thyromegaly Lungs: Clear to Auscultation, Normal Air Movement Heart: Regular Rate, Normal S1, Normal S2, No Murmurs Abdomen: Normal Bowel Sounds, Soft, No Tenderness, No Hepatosplenomegaly, No Masses Extremities: No Clubbing, No Cyanosis, No Edema, Normal Pulses, No Tenderness/Swelling Skin: No Rashes, No Breakdown, No Significant Lesion Neuro: Normal Gait, Normal Speech, Strength at 5/5 X4 Ext, Normal Tone, Sensation Intact Psych/Mental Status: Mental Status NL, Mood NL Results Lab A/P-Cardiology Admission Diagnosis Dizziness Acute atrial fibrillation Hypotension Diabetes mellitus Assessment/Plan Dizziness and lightheadedness, better at this time. Continue to monitor New-onset atrial fibrillation, status post OLIVIA with electrical cardioversion, maintained on amiodarone and Eliquis, continue to monitor as an outpatient Frequent premature ventricular contractions, starting Toprol-XL 25 mg daily Mild elevation in initial troponin returned to normal, no significant abnormality was noted, probably normal variant. Borderline hypotension, has been on lisinopril, I will decrease the lisinopril dose to 5 mg daily and add Toprol-XL 25 mg daily and monitor Diabetes mellitus, followed and managed by primary care physician History of neck surgery Okay for discharge from cardiology standpoint and arrange for follow-up as an outpatient Clinical Quality Measures DVT/VTE Risk/Contraindication: Risk Factor Score Per Nursin RFS Level Per Nursing on Admit: 2=Moderate KATTY JORDAN MD Jan 10, 2019 07:58
[2019-01-10] MEDS ORDERED: AMIO200T4 PO (08:02)
[2019-01-10] MEDS ORDERED: PANT40SU PO (08:02)
[2019-01-10] MEDS ORDERED: ASPI-983 PO (08:02)
[2019-01-10] MEDS ORDERED: APIX5TAB PO (08:02)
[2019-01-10] MEDS ORDERED: METO-351 PO (08:02)
[2019-01-10] MEDS ORDERED: LISI-556 PO (08:02)
[2019-01-10] MEDS ORDERED: ATOR10TA PO (08:02)
[2019-01-10] MEDS: ASPIRIN E.C. 81 MG (ECOTRIN) TAB PO SCH (08:32)
[2019-01-10] MEDS: APIXABAN 5 MG (ELIQUIS) TABLET PO SCH (08:32)
[2019-01-10] MEDS: meTOprolol TARTRATE 25 MG (LOPRESSOR) TABLET PO SCH (08:33)
[2019-01-10] MEDS ORDERED: AMIODARONE 200 MG (CORDARONE) TAB PO SCH (09:00)
--- NOTE | 2019-01-10 10:38 | Discharge Summary ---
Discharge Summary Hospital Course Problems/Dx: (1) Near syncope Status: Acute (2) Troponin level elevated Status: Acute (3) NSTEMI (non-ST elevated myocardial infarction) Status: Acute (4) Atrial fibrillation with rapid ventricular response Status: Acute (5) Atrial fibrillation status post cardioversion (6) On continuous oral anticoagulation Hospital Course Date of Admission: Jan 07, 2019 at 22:45 Admission Diagnosis : Family Physician/Provider: [facility] Date of Discharge: 01/10/19 Discharge Diagnosis: New onset atrial fibrillation with rapid ventricular response status post cardioversion placed on anticoagulation, elevated troponin likely normal variant Hospital Course: Patient had an uneventful hospital course he was admitted from [facility] due to elevated troponin dizziness and new onset atrial fibrillation with rapid ventricular response. Elevated troponin was found to be a normal variant. He underwent OLIVIA with cardioversion which was successful placed on amiodarone with a taper dose along with oral anticoagulation and will be seen in Dr. Fonseca's office with close follow-up. Labs and Pending Lab Test: Laboratory Tests 01/09/19 11:53: Glucometer 111H 01/09/19 15:39: Glucometer 111H 01/09/19 20:52: Glucometer 140H 01/10/19 06:34: Glucometer 109 Home Meds Active Toprol Xl (Metoprolol Succinate) 25 Mg Tab.er.24h 25 Mg PO DAILY Lisinopril 5 Mg Tablet 5 Mg PO DAILY Protonix (Pantoprazole Sodium) 40 Mg Granp 40 Mg PO DAILY Lipitor (Atorvastatin Calcium) 10 Mg Tablet 10 Mg PO HS Amiodarone HCl 200 Mg Tablet 200 Mg PO UD Take 2 tablets twice daily for 2 weeks then Take one tablet twice daily Aspirin EC (Aspirin) 81 Mg Tablet. 81 Mg PO DAILY Eliquis (Apixaban) 5 Mg Tablet 5 Mg PO BID Reported Sildenafil (Sildenafil Citrate) 20 Mg Tablet 20 Mg PO DAILY PRN Methotrexate (Methotrexate Sodium) 2.5 Mg Tablet 10 Mg PO WE Folic Acid 0.4 Mg Tablet 1.2 Mg PO SUMOTUTHFRSA TAKES 3 (0.4MG) TABLETS Niacin 500 mg Capsule (Niacin (Inositol Niacinate)) 500 Mg Capsule 500 Mg PO HS Centrum Silver Ultra Men's Tab (Multivit-Min/FA/Lycopene/Lut) 1 Each Tablet 1 Tab PO DAILY Alfuzosin HCl ER (Alfuzosin HCl) 10 Mg Tab.er.24h 10 Mg PO DAILY Finasteride 5 Mg Tablet 5 Mg PO HS Glipizide 5 Mg Tablet 5 Mg PO HS Metformin HCl 1,000 Mg Tablet 1,000 Mg PO BID Assessment/Pt Instructions Close follow-up with Dr. Fonseca Discharge Planning: <30 minutes discharge planning Discharge Instructions Discharge Diet: Cardiac Diet Activity as Tolerated: Yes Discharge Physical Examination Vital Signs Vital Signs Date Time Temp Pulse Resp B/P (MAP) Pulse Ox O2 Delivery O2 Flow Rate FiO2 01/10/19 09:00 96 Room Air 01/10/19 07:00 56 01/10/19 07:00 36.3 01/10/19 04:00 18 130/90 (103) General Appearance: No Apparent Distress, WD/WN Respiratory: Chest Non Tender, Lungs Clear, Normal Breath Sounds, No Accessory Muscle Use, No Respiratory Distress Cardiovascular: Regular Rate, Rhythm, No Edema, No Gallop, No JVD, No Murmur, Normal Peripheral Pulses Neurologic/Psychiatric: Alert, Oriented x3, No Motor/Sensory Deficits, Normal Mood/Affect Allergies: Coded Allergies: No Known Drug Allergies (Unverified , 01/07/19) Discharge Summary Date of Admission Jan 07, 2019 at 22:45 Date of Discharge Discharge Date: Jan 10, 2019 Admission Diagnosis Assessment: AF w/RVR NSTEMI Plan: Appreciate Dr Fonseca OLIVIA Discharge Diagnosis (1) Near syncope Status: Acute (2) Troponin level elevated Status: Acute (3) NSTEMI (non-ST elevated myocardial infarction) Status: Acute (4) Atrial fibrillation with rapid ventricular response Status: Acute Clinical Quality Measures DVT/VTE Risk/Contraindication: Risk Factor Score Per Nursin RFS Level Per Nursing on Admit: 2=Moderate JD BESS DO Jan 10, 2019 10:38
== END 2019-01-10 11:10 | disposition home or self-care (01) | DRG 310 ==
LOC: ER FS 18:48 → ICU 22:45 → ER FS 23:37
PROVIDERS: ADMIT Internal Medicine; ATTEND Internal Medicine
PROC: 5A2204Z Restoration of Cardiac Rhythm, Single (ICD-10-PCS; principal; 2019-01-09)
DX: I48.0 Paroxysmal atrial fibrillation (principal); I10 Essential (primary) hypertension; I49.3 Ventricular premature depolarization; R42 Dizziness and giddiness; I95.9 Hypotension, unspecified; E11.9 Type 2 diabetes mellitus without complications; E78.00 Pure hypercholesterolemia, unspecified; Z97.4 Presence of external hearing-aid
CPT/HCPCS: 36415; 71045; 71046; 80053; 81000; 82962; 83735; 83880; 84443; 84484; 85025; 85027; 93005; 93306; 93312; 93320; 93325; 96360; 96372

== ENCOUNTER → 2019-01-26 | Outpatient (CLI) | payer MEDICARE, OTHER ==
[~2019-01-26] VITALS: Ht 180 cm; Wt 78.0 kg
[~2019-01-26] MED LIST: ALFU10TA11 PO; AMIO200T4 PO; APIX5TAB PO; ASPI-983 PO; ATOR10TA PO; CATHETER FLUSH 10 ML SYR IV PRN; FINA5TAB6 PO; FOLI0.4T2 PO; GLIP5TAB13 PO; LISI-556 PO; LISI10TA2 PO; METF-399 PO; METH2.5T PO; METO-351 PO; MULT-850 PO; NIAC1CAP PO; OMEP20TA33 PO; PANT40SU PO; REGADENOSON 0.4 MG/5 ML SYR (LEXISCAN) IV ONE; SILD20TA14 PO; SIMV20TA3 PO
[2019-01-26 09:18] VITALS: BP 149/76
[2019-01-26 09:20] VITALS: BP 139/60
--- NOTE | 2019-01-26 19:02 | STRESS TEST ---
DATE OF SERVICE: 01/26/2019 LEXISCAN MYOVIEW STRESS TEST REFERRING PHYSICIAN: Jemma Phipps, [facility]. Baseline heart rate is 42. Baseline blood pressure is 149/76. Baseline EKG is sinus bradycardia with right bundle branch block. In summary, the patient received 10.5 mCi of technetium-99 Myoview and the resting images were obtained. Then, the patient received 0.4 mg of Lexiscan followed by 30.3 mCi of technetium-99 Myoview. Throughout the test, there were no EKG changes. The resting and stress images were reviewed and compared in the short axis, horizontal long axis, and vertical long axis views. Review of the images showed good radiotracer uptake with no significant ischemia or infarction on SPECT images. SSS is 2, SDS 2, TID value 0.97. On the gated images, the left ventricle appeared to be normal size with normal contractility. Calculated ejection fraction is 57%. CONCLUSION: 1. The patient tolerated Lexiscan well. 2. Baseline sinus bradycardia with right bundle branch block persisted throughout test. 3. No ischemia or infarction on SPECT images. 4. Normal left ventricular size with normal contractility. Calculated ejection fraction is 57%. Job ID: [id number] DocumentID: [id number] Dictated Date: 01/26/2019 16:33:12 Fine Grader Date: 01/26/2019 19:01:36 Dictated By: KATTY JORDAN MD
== END ==
LOC: CARD 07:39
PROVIDERS: ATTEND Internal Medicine Cardiovascular Disease
DX: I08.1 Rheumatic disorders of both mitral and tricuspid valves (principal); I45.10 Unspecified right bundle-branch block
CPT/HCPCS: 78452; 93017

== ENCOUNTER 2019-03-15 15:36 | Emergency (ER) | payer MEDICARE, OTHER ==
[~2019-03-15] VITALS: Ht 180.3 cm; Wt 74.5 kg
[~2019-03-15 15:36] MED LIST changes: -CATHETER FLUSH 10 ML SYR IV PRN; -REGADENOSON 0.4 MG/5 ML SYR (LEXISCAN) IV ONE
[2019-03-15 16:04] LABS: HEMATOCRIT 36 % (40-54); HEMOGLOBIN 11.3 G/DL (13.3-17.7); MEAN CORPUSCULAR HEMOGLOBIN 31 PG (25-34); MEAN CORPUSCULAR HGB CONC 32 G/DL (32-36); MEAN CORPUSCULAR VOLUME 97 FL (80-99); MEAN PLATELET VOLUME 10.6 FL (7.4-10.4); PLATELET COUNT 253 10^3/uL (130-400); RED CELL DISTRIBUTION WIDTH 13.7 % (10.0-14.5); WHITE BLOOD COUNT 7.6 10^3/uL (4.3-11.0)
--- NOTE | 2019-03-15 16:04 | ED General ---
General Stated Complaint: DIZZINESS Source of Information: Patient History of Present Illness Date Seen by Provider: Mar 15, 2019 Time Seen by Provider: 15:39 Initial Comments 84-year-old male presenting with complaints of dizziness and lightheadedness with standing up and changing positions today. His reports that he had gotten down to his knees on 3 different occasions today because of being so dizzy. He denies having any chest pains. He has been having some upper back and neck pain. He denies any falls or injuries. He has been coughing a lot recently and bringing up some greenish yellow sputum but states that that is improving. He does have a history of atrial fibrillation and he has not felt any of the times that he was in that. He denies headache or any nasal congestion or ear pain. Allergies and Home Medications Allergies Coded Allergies: No Known Drug Allergies (Unverified , 01/07/19) Home Medications Alfuzosin HCl 10 Mg Tab.er.24h, 10 MG PO DAILY, (Reported) Amiodarone HCl 200 Mg Tablet, 200 MG PO UD Take 2 tablets twice daily for 2 weeks then Take one tablet twice daily Prescribed by: KATTY JORDAN on 01/10/19801 Apixaban 5 Mg Tablet, 5 MG PO BID Prescribed by: KATTY JORDAN on 01/10/19801 Aspirin 81 Mg Tablet.dr, 81 MG PO DAILY Prescribed by: KATTY JORDAN on 01/10/19801 Atorvastatin Calcium 10 Mg Tablet, 10 MG PO HS Prescribed by: KATTY JORDAN on 01/10/19801 Finasteride 5 Mg Tablet, 5 MG PO HS, (Reported) Folic Acid 0.4 Mg Tablet, 1.2 MG PO [id number], (Reported) TAKES 3 (0.4MG) TABLETS Glipizide 5 Mg Tablet, 5 MG PO HS, (Reported) Lisinopril 5 Mg Tablet, 5 MG PO DAILY Prescribed by: KATTY JORDAN on 01/10/19801 Metformin HCl 1,000 Mg Tablet, 1,000 MG PO BID, (Reported) Methotrexate Sodium 2.5 Mg Tablet, 10 MG PO We, (Reported) Metoprolol Succinate 25 Mg Tab.er.24h, 25 MG PO DAILY Prescribed by: KATTY JORDAN on 01/10/19801 Multivit-Min/FA/Lycopene/Lut 1 Each Tablet, 1 TAB PO DAILY, (Reported) Niacin (Inositol Niacinate) 500 Mg Capsule, 500 MG PO HS, (Reported) Pantoprazole Sodium 40 Mg Rick.dr, 40 MG PO DAILY Prescribed by: KATTY JORDAN on 01/10/19 0802 Sildenafil Citrate 20 Mg Tablet, 20 MG PO DAILY PRN for ED, (Reported) Patient Home Medication List Home Medication List Reviewed: Yes Review of Systems Review of Systems Constitutional: No chills; dizziness (with standing and changing positions today); No fever EENTM: No ear pain, No epistaxis, No nose congestion Respiratory: cough (with greenish yellow sputum); No stridor, No wheezing Cardiovascular: No chest pain, No palpitations Gastrointestinal: No nausea, No vomiting Genitourinary: No dysuria Musculoskeletal: back pain (low back pain and some pain in upper neck and back) Skin: no symptoms reported Psychiatric/Neurological: No Symptoms Reported Past Kncccgk-Jttmbd-Kreoki Hx Past Med/Social Hx: Reviewed Nursing Past Med/Soc Hx Patient Social History Type Used: Cigars Former Smoker, Quit: Dec 21, 1996 2nd Hand Smoke Exposure: No Recent Hopitalizations: No Immunizations Up To Date Date of Pneumonia Vaccine: Jan 09, 2016 Seasonal Allergies Seasonal Allergies: Yes Past Medical History Surgeries: Yes (BILAT SHOULDER, BILAT KNEE, HAND AND WRIST) Appendectomy Respiratory: No Cardiac: Yes High Cholesterol, Hypertension Neurological: No Genitourinary: Yes Prostate Problems Gastrointestinal: Yes (DIVERTICULITIS) Musculoskeletal: No Endocrine: Yes Diabetes, Non-Insulin dep HEENT: Yes Cataract Loss of Vision: Denies Hearing Impairment: Hard of Hearing, Hearing Aide Right, Hearing Aide Left Cancer: No Psychosocial: No Integumentary: Yes Psoriasis Blood Disorders: No Family Medical History CANCER 19 MOTHER Physical Exam Vital Signs Vital Signs - First Documented 03/15/19 15:45 Temp 36.5 Pulse 53 Resp 21 B/P (MAP) 108/52 (70) Pulse Ox 97 O2 Delivery Room Air Capillary Refill : Height, Weight, BMI Height: '" Weight: 165lbs. 0.0oz. 74.036003wz; 24.07 BMI Method: General Appearance: No Apparent Distress, WD/WN HEENT: PERRL/EOMI, Pharynx Normal, Other (TM dull bilaterally but no effusion noted. Wearing hearing aids bilaterally) Neck: Full Range of Motion, Supple, Other (mild tenderness to lower paraspinal muscles of neck) Respiratory: Chest Non Tender, Lungs Clear, Normal Breath Sounds, No Accessory Muscle Use, No Respiratory Distress Cardiovascular: No Edema, No JVD, Normal Peripheral Pulses, Bradycardia Gastrointestinal: No Pulsatile Mass, Non Tender, Soft Extremity: Normal Capillary Refill, Normal Inspection, No Pedal Edema Neurologic/Psychiatric: Alert, Oriented x3, No Motor/Sensory Deficits Skin: Normal Color, Warm/Dry Progress/Results/Core Measures Suspected Sepsis SIRS Temperature: Pulse: Respiratory Rate: Laboratory Tests 03/15/19 15:55: White Blood Count 7.6 Blood Pressure / Mean: Laboratory Tests 03/15/19 15:55: Creatinine 1.96H, INR Comment 1.5H, Platelet Count 253, Total Bilirubin 0.2 Results/Orders Lab Results Laboratory Tests Test 03/15/19 15:55 03/15/19 16:07 Range/Units White Blood Count 7.6 4.3-11.0 10^3/uL Red Blood Count 3.65 L 4.35-5.85 10^6/uL Hemoglobin 11.3 L 13.3-17.7 G/DL Hematocrit 36 L 40-54 % Mean Corpuscular Volume 97 80-99 FL Mean Corpuscular Hemoglobin 31 25-34 PG Mean Corpuscular Hemoglobin Concent 32 32-36 G/DL Red Cell Distribution Width 13.7 10.0-14.5 % Platelet Count 253 130-400 10^3/uL Mean Platelet Volume 10.6 H 7.4-10.4 FL Neutrophils (%) (Auto) 79 H 42-75 % Lymphocytes (%) (Auto) 11 L 12-44 % Monocytes (%) (Auto) 8 0-12 % Eosinophils (%) (Auto) 2 0-10 % Basophils (%) (Auto) 1 0-10 % Neutrophils # (Auto) 6.0 1.8-7.8 X 10^3 Lymphocytes # (Auto) 0.8 L 1.0-4.0 X 10^3 Monocytes # (Auto) 0.6 0.0-1.0 X 10^3 Eosinophils # (Auto) 0.1 0.0-0.3 10^3/uL Basophils # (Auto) 0.0 0.0-0.1 10^3/uL Prothrombin Time 18.7 H 12.2-14.7 SEC INR Comment 1.5 H 0.8-1.4 Activated Partial Thromboplast Time 27 24-35 SEC Sodium Level 139 135-145 MMOL/L Potassium Level 4.8 3.6-5.0 MMOL/L Chloride Level 105 98-107 MMOL/L Carbon Dioxide Level 23 21-32 MMOL/L Anion Gap 11 5-14 MMOL/L Blood Urea Nitrogen 38 H 7-18 MG/DL Creatinine 1.96 H 0.60-1.30 MG/DL Estimat Glomerular Filtration Rate 33 BUN/Creatinine Ratio 19 Glucose Level 209 H 70-105 MG/DL Calcium Level 9.2 8.5-10.1 MG/DL Corrected Calcium 9.2 8.5-10.1 MG/DL Magnesium Level 1.5 L 1.6-2.4 MG/DL Total Bilirubin 0.2 0.1-1.0 MG/DL Aspartate Amino Transf (AST/SGOT) 22 5-34 U/L Alanine Aminotransferase (ALT/SGPT) 17 0-55 U/L Alkaline Phosphatase 54 40-136 U/L Troponin I < 0.30 <0.30 NG/ML Pro-B-Type Natriuretic Peptide 409.7 H <75.0 PG/ML Total Protein 6.2 L 6.4-8.2 GM/DL Albumin 4.0 3.2-4.5 GM/DL Urine Color DARK YELLOW Urine Clarity CLEAR Urine pH 5.0 5-9 Urine Specific [place] 1.025 H 1.016-1.022 Urine Protein NEGATIVE NEGATIVE Urine Glucose (UA) NEGATIVE NEGATIVE Urine Ketones TRACE H NEGATIVE Urine Nitrite NEGATIVE NEGATIVE Urine Bilirubin 1+ H NEGATIVE Urine Urobilinogen 0.2 < = 1.0 MG/DL Urine Leukocyte Esterase NEGATIVE NEGATIVE Urine RBC (Auto) NEGATIVE NEGATIVE Urine RBC NONE /HPF Urine WBC 0-2 /HPF Urine Squamous Epithelial Cells 0-2 /HPF Urine Crystals NONE /LPF Urine Bacteria TRACE /HPF Urine Casts PRESENT /LPF Urine Hyaline Casts 0-2 H /LPF Urine Mucus SMALL H /LPF Urine Culture Indicated NO My Orders Orders - BARBY BLISS MD Cbc With Automated Diff (03/15/19 15:44) Magnesium (03/15/19 15:44) Ekg Tracing (03/15/19 15:44) Comprehensive Metabolic Panel (03/15/19 15:44) Protime With Inr (03/15/19 15:44) Partial Thromboplastin Time (03/15/19 15:44) O2 (03/15/19 15:44) Monitor-Rhythm Ecg Trace Only (03/15/19 15:44) Ed Iv/Invasive Line Start (03/15/19 15:44) Troponin I Fs (03/15/19 15:44) Probnp Fs (03/15/19 15:44) Chest 1 View Ap/Pa Only (03/15/19 16:00) Ns Iv 1000 Ml (Sodium Chloride 0.9%) (03/15/19 16:15) Ua Culture If Indicated (03/15/19 16:44) Vital Signs/I&O 03/15/19 03/15/19 15:45 17:20 Temp 36.5 36.5 Pulse 53 53 Resp 21 14 B/P (MAP) 108/52 (70) 121/60 Pulse Ox 97 98 O2 Delivery Room Air Room Air Capillary Refill : Progress Note #1: Progress Note Obtain electrocardiogram as well as chest x-ray and labs. With orthostatic vital signs his blood pressure does drop slightly and heart rate went up with him feeling a little dizzy. Will give a liter normal saline IV bolus. Progress Note #2: Progress Note CBC is stable without acute changes. He does have some chronic mild anemia but hemoglobin is stable at 11.2. His chest x-ray does not show any acute infiltrate or abnormality. His INR is slightly low at 1.5. His chemistry panel shows a negative troponin at less than 0.30. His nightly is elevated to 38 and his creatinine is elevated to 1.96. Both of these are high for him which would go along with some mild dehydration. He is getting a liter of fluids and a urinalysis is ordered. Will see what his UA shows and how he feels after the fluids are done. Progress Note #3: Progress Note Urinalysis shows elevated specific gravity to go along with dehydration. Blood pressure and vital signs are improved as the day her normal saline has finished infusing. Patient reports feeling better with changing positions now. Counseled on follow-up and return precautions. Advised that he needs to push fluids and work harder on standing better hydrated. Also advised he needs to have his labs rechecked after Thanksgiving to make sure that his creatinine has improved with better hydration and that it is not continuing to worsen. Patient reports that the bradycardia is chronic for him even before his addition of recent cardiac medications ECG Initial ECG Impression Date: Mar 15, 2019 Initial ECG Impression Time: 15:58 Initial ECG Rate: 50 Initial ECG Rhythm: S.Nir Comment Sinus bradycardia with a heart rate of 50 bpm. [place] interval 180 ms. QT interval 480 ms and a QT corrected interval 438 ms. He has no acute ST elevation. He has a right bundle-branch block. Previous EKG tracing had been atrial fibrillation with RVR. Diagnostic Imaging Diagonstic Imaging: Xray Plain Films/CT/US/NM/MRI: chest Comments NAME: TAYL[facility] CANCINO [facility] REC#: [id number] PT STATUS: REG ER : 1935 PHYSICIAN: BARBY BLISS MD ADMIT DATE: 03/15/19/ER FS Draft POSDate of Exam:03/15/19 CHEST 1 VIEW AP/PA ONLY INDICATION: Dizziness, syncope. COMPARISON: 01/08/2019. EXAMINATION: Single view of the chest was obtained. FINDINGS: Clear lungs, bilaterally. The heart is enlarged but stable. There is no pneumothorax, effusion or focal infiltrate. Osseous structures are normal. IMPRESSION: No acute cardiopulmonary findings. Dictated on workstation # [id number] Dict: 03/15/19 1621 Trans: 03/15/19 1635 [facility] [id number] Interpreted by: MEHRAN MCCRAY Electronically signed by: Departure Impression Primary Impression: Dehydration Additional Impression: Renal insufficiency Disposition: 01 HOME, SELF-CARE Condition: Stable Departure-Patient Inst. Decision time for Depature: 17:04 Referrals: NO,LOCAL PHYSICIAN (PCP) Primary Care Physician PAOLA ANDERSON (Family) Primary Care Physician Patient Instructions: Dehydration, Adult (DC), Orthostatic Hypotension (DC) Add. Discharge Instructions: You need to drink more water and keep better hydrated. Consider sugar-free electrolyte drinks or flavorings that you can add to water so that you can stay better hydrated. Check back with your regular provider and clinic about having labs done after Thanksgiving to recheck your kidney function and make sure that it has improved after hydration and drinking more fluids. Right now your creatinine has gone up to 1.9. Usually your creatinine runs around 1.4. BARBY BLISS MD Mar 15, 2019 16:04 POS
[2019-03-15 16:05] LABS: BASOPHILS % (AUTO) 1 % (0-10); EOSINOPHILS # (AUTO) 0.1 10^3/uL (0.0-0.3); EOSINOPHILS % (AUTO) 2 % (0-10); LYMPHOCYTES # (AUTO) 0.8 X 10^3 (1.0-4.0); LYMPHOCYTES % (AUTO) 11 % (12-44); MONOCYTES # (AUTO) 0.6 X 10^3 (0.0-1.0); MONOCYTES % (AUTO) 8 % (0-12); NEUTROPHILS % (AUTO) 79 % (42-75)
[2019-03-15] MEDS ORDERED: NS IV 1000 ML 1,000 ML IV SCH (16:15)
[2019-03-15 16:24] LABS: BILIRUBIN,TOTAL 0.2 MG/DL (0.1-1.0); CALCIUM 9.2 MG/DL (8.5-10.1); CREATININE SERUM 1.96 MG/DL (0.60-1.30); MAGNESIUM 1.5 MG/DL (1.6-2.4); POTASSIUM 4.8 MMOL/L (3.6-5.0)
[2019-03-15 16:25] LABS: TOTAL PROTEIN 6.2 GM/DL (6.4-8.2)
[2019-03-15 16:27] LABS: INR 1.5 (0.8-1.4); PROTHROMBIN TIME PATIENT 18.7 SEC (12.2-14.7)
--- NOTE | 2019-03-15 16:35 | Diagnostic Imaging Report ---
INDICATION: Dizziness, syncope. COMPARISON: 01/08/2019. EXAMINATION: Single view of the chest was obtained. FINDINGS: Clear lungs, bilaterally. The heart is enlarged but stable. There is no pneumothorax, effusion or focal infiltrate. Osseous structures are normal. IMPRESSION: No acute cardiopulmonary findings. Dictated by: Dictated on workstation # [id number]
[2019-03-15 16:59] LABS: BILIRUBIN,URINE 1+ (NEGATIVE); CLARITY,URINE CLEAR; COLOR,URINE DARK YELLOW; GLUCOSE, URINE (UA) NEGATIVE (NEGATIVE); KETONES,URINE TRACE (NEGATIVE); NITRITE,URINE NEGATIVE (NEGATIVE); PROTEIN,URINE NEGATIVE (NEGATIVE)
[2019-03-15 17:00] LABS: BACTERIA,URINE TRACE /HPF; HYALINE CASTS, URINE 0-2 /LPF; LEUKOCYTE ESTERASE ,URINE NEGATIVE (NEGATIVE); SQUAMOUS EPITHELIAL CELL,UR 0-2 /HPF; WBC,URINE 0-2 /HPF
[2019-03-15 17:20] VITALS: BP 121/60
== END 2019-03-15 17:20 | disposition home or self-care (01) ==
LOC: EDUNIT# 15:36 → ER FS 15:38
DX: E86.0 Dehydration (principal); N28.9 Disorder of kidney and ureter, unspecified; I48.91 Unspecified atrial fibrillation; I10 Essential (primary) hypertension; E11.9 Type 2 diabetes mellitus without complications; E78.00 Pure hypercholesterolemia, unspecified; Z90.49 Acquired absence of other specified parts of digestive tract; Z79.01 Long term (current) use of anticoagulants; Z79.82 Long term (current) use of aspirin; Z79.84 Long term (current) use of oral hypoglycemic drugs; Z87.891 Personal history of nicotine dependence
CPT/HCPCS: 36415; 71045; 80053; 81000; 83735; 83880; 84484; 85025; 85610; 85730; 93005; 93041; 96360

== ENCOUNTER 2019-04-08 08:20 | Outpatient (RCR) | payer MEDICARE, OTHER ==
[2019-01-22 09:32] LABS: INR 1.3 (0.8-1.4)
[2019-01-23 10:04] LABS: INR 1.3 (0.8-1.4)
[2019-01-26 08:59] LABS: INR 1.5 (0.8-1.4); PROTHROMBIN TIME PATIENT 18.8 SEC (12.2-14.7)
[2019-01-29 10:27] LABS: PROTHROMBIN TIME PATIENT 23.2 SEC (12.2-14.7)
[2019-02-04 08:59] LABS: INR 1.9 (0.8-1.4); PROTHROMBIN TIME PATIENT 22.8 SEC (12.2-14.7)
[2019-02-16 08:37] LABS: INR 4.6 (0.8-1.4)
[2019-02-16 08:44] LABS: PROTHROMBIN TIME PATIENT 45.4 SEC (12.2-14.7)
[2019-02-18 10:24] LABS: INR 3.3 (0.8-1.4); PROTHROMBIN TIME PATIENT 34.9 SEC (12.2-14.7)
[2019-02-25 11:15] LABS: INR 1.6 (0.8-1.4); PROTHROMBIN TIME PATIENT 19.9 SEC (12.2-14.7)
[2019-03-05 11:13] LABS: INR 2.4 (0.8-1.4); PROTHROMBIN TIME PATIENT 26.9 SEC (12.2-14.7)
[2019-03-20 08:34] LABS: INR 1.3 (0.8-1.4); PROTHROMBIN TIME PATIENT 16.5 SEC (12.2-14.7)
[2019-03-25 09:40] LABS: INR 1.8 (0.8-1.4); PROTHROMBIN TIME PATIENT 21.8 SEC (12.2-14.7)
[2019-04-08 08:56] LABS: INR 1.3 (0.8-1.4); PROTHROMBIN TIME PATIENT 16.5 SEC (12.2-14.7)
== END 2019-04-22 | disposition home or self-care (01) ==
LOC: LAB 08:20
PROVIDERS: ATTEND Internal Medicine Cardiovascular Disease
DX: I08.1 Rheumatic disorders of both mitral and tricuspid valves (principal); I45.10 Unspecified right bundle-branch block
CPT/HCPCS: 36415; 85610

== ENCOUNTER → 2019-06-15 | Outpatient (CLI) | payer MEDICARE, OTHER ==
[~2019-06-15] VITALS: Ht 180 cm; Wt 76.0 kg
[~2019-06-15] MED LIST changes: -ALFU10TA11 PO; +ALFU10TA12 PO; +CATHETER FLUSH 10 ML SYR IV PRN; +REGADENOSON 0.4 MG/5 ML SYR (LEXISCAN) IV ONE; +SIMV20TA26 PO; -SIMV20TA3 PO
[2019-06-15 09:27] VITALS: BP 146/79
--- NOTE | 2019-06-15 13:23 | STRESS TEST ---
DATE OF SERVICE: 06/15/2019 LEXISCAN MYOVIEW STRESS TEST REPORT Baseline heart rate is 48, baseline blood pressure 146/79. Baseline EKG is sinus rhythm with right bundle branch block. In summary, the patient received 10.54 mCi of technetium-99 Myoview and the resting images were obtained. Then, the patient received 0.4 mg of Lexiscan followed by 31.1 mCi of technetium-99 Myoview. Review of the images showed diaphragmatic attenuation with increased intestinal uptake affecting the quality of the images. There is decreased uptake at the inferoapical segment with no significant reversibility. SSS is 1, SDS 1. TID value 1.09. On the gated images, the left ventricle appeared to be normal size with normal contractility. Calculated ejection fraction 53%. CONCLUSION: 1. The patient tolerated Lexiscan well. 2. Diaphragmatic attenuation affecting the quality of the images, overall, there is no significant ischemia or infarction on SPECT images. 3. Normal left ventricular size with normal contractility. Calculated ejection fraction 53%. Job ID: [id number] DocumentID: [id number] Dictated Date: 06/15/2019 11:26:02 Magnet Placer Date: 06/15/2019 13:23:39 Dictated By: KATTY JORDAN MD
== END ==
LOC: CARD 06-03 11:17
PROVIDERS: ATTEND Internal Medicine Cardiovascular Disease
DX: I08.1 Rheumatic disorders of both mitral and tricuspid valves (principal); I45.10 Unspecified right bundle-branch block
CPT/HCPCS: 78452; 93017

== ENCOUNTER 2019-07-01 10:52 | Outpatient (RCR) | payer MEDICARE, OTHER ==
[2019-04-27 12:28] LABS: INR 1.6 (0.8-1.4); PROTHROMBIN TIME PATIENT 20.2 SEC (12.2-14.7)
[2019-05-12 10:31] LABS: INR 3.2 (0.8-1.4); PROTHROMBIN TIME PATIENT 34.4 SEC (12.2-14.7)
[2019-06-03 11:31] LABS: INR 1.4 (0.8-1.4); PROTHROMBIN TIME PATIENT 17.4 SEC (12.2-14.7)
[2019-06-18 11:52] LABS: INR 1.6 (0.8-1.4); PROTHROMBIN TIME PATIENT 19.2 SEC (12.2-14.7)
[~2019-07-01 10:52] MED LIST changes: -CATHETER FLUSH 10 ML SYR IV PRN; -REGADENOSON 0.4 MG/5 ML SYR (LEXISCAN) IV ONE
[2019-07-01 11:27] LABS: INR 1.6 (0.8-1.4); PROTHROMBIN TIME PATIENT 20.1 SEC (12.2-14.7)
[2019-07-15 09:41] LABS: INR 1.7 (0.8-1.4); PROTHROMBIN TIME PATIENT 20.8 SEC (12.2-14.7)
== END 2019-07-26 | disposition home or self-care (01) ==
LOC: LAB 10:52
PROVIDERS: ATTEND Internal Medicine Cardiovascular Disease
DX: I08.1 Rheumatic disorders of both mitral and tricuspid valves (principal); I45.10 Unspecified right bundle-branch block
CPT/HCPCS: 36415; 85610

== ENCOUNTER → 2019-07-27 | Outpatient (CLI) | payer MEDICARE, OTHER ==
--- NOTE | 2019-07-27 11:17 | Diagnostic Imaging Report ---
INDICATION: Neck pain. TECHNIQUE: AP, oblique, lateral, and odontoid views of the cervical spine are obtained. FINDINGS: Cervical vertebrae appear normal in height and alignment. There is no fracture or subluxation. There is disc space narrowing at C5-C6 and C6-C7 with osteophyte formation. There is diffuse facet degenerative change. There is some bony neuroforaminal narrowing at C5-C6 on the right side. IMPRESSION: Degenerative findings of the cervical spine as described above, most prominent at the C5-C6 and C6-C7 levels. There is no acute-appearing abnormality. Dictated by: Dictated on workstation # [id number]
== END ==
LOC: RAD FS 10:35
PROVIDERS: ATTEND Nurse Practitioner
DX: M47.812 Spondylosis without myelopathy or radiculopathy, cervical region (principal)
CPT/HCPCS: 72050

== ENCOUNTER 2019-08-05 10:50 | Outpatient (RCR) | payer MEDICARE, OTHER ==
[2019-08-05 11:28] LABS: INR 2.3 (0.8-1.4)
[2019-09-09 10:05] LABS: PROTHROMBIN TIME PATIENT 23.9 SEC (12.2-14.7)
== END 2019-11-03 | disposition home or self-care (01) ==
LOC: LAB 10:50
PROVIDERS: ATTEND Internal Medicine Cardiovascular Disease
DX: I45.0 Right fascicular block (principal); I08.1 Rheumatic disorders of both mitral and tricuspid valves
CPT/HCPCS: 36415; 85610

== ENCOUNTER 2019-10-21 13:17 | Outpatient (RCR) | payer MEDICARE, OTHER ==
[~2019-10-21 13:17] MED LIST changes: +ASPI-1238 PO; -ASPI-983 PO
[2019-10-21 14:07] LABS: INR 1.7 (0.8-1.4); PROTHROMBIN TIME PATIENT 20.4 SEC (12.2-14.7)
== END 2020-01-19 | disposition home or self-care (01) ==
LOC: LAB 13:17
PROVIDERS: ATTEND Internal Medicine Cardiovascular Disease
DX: I51.7 Cardiomegaly (principal); I08.1 Rheumatic disorders of both mitral and tricuspid valves; I45.10 Unspecified right bundle-branch block; I45.0 Right fascicular block
CPT/HCPCS: 36415; 85610

== ENCOUNTER → 2019-11-10 | Outpatient (CLI) | payer MEDICARE, OTHER ==
[~2019-11-10] MED LIST changes: -ASPI-1238 PO; +ASPI-983 PO
[2019-11-10 12:25] LABS: ALBUMIN 3.7 GM/DL (3.2-4.5); BILIRUBIN,TOTAL 0.3 MG/DL (0.1-1.0); CALCIUM 8.5 MG/DL (8.5-10.1); CREATININE SERUM 1.5 MG/DL (0.60-1.30); POTASSIUM 4.5 MMOL/L (3.6-5.0); TOTAL PROTEIN 6.2 GM/DL (6.4-8.2)
== END ==
LOC: LAB 11:31
PROVIDERS: ATTEND Internal Medicine Cardiovascular Disease
DX: I08.1 Rheumatic disorders of both mitral and tricuspid valves (principal); I45.10 Unspecified right bundle-branch block
CPT/HCPCS: 36415; 80053; 80061

== ENCOUNTER → 2020-08-17 | Day surgery (SDC) | payer MEDICARE, OTHER ==
[~2020-08-17] VITALS: Ht 180 cm; Wt 77.0 kg
[~2020-08-17] MED LIST changes: -AMIO200T4 PO; +AMIO200T6 PO; +ASPI-1238 PO; -ASPI-983 PO; -FOLI0.4T2 PO; +FOLI0.4T6 PO; +LIDOCAINE 1% INJ 20 ML 20 ML VIAL INJ ONE; +LIDOCAINE 1% INJ 20 ML 20 ML VIAL ONE; -LISI-556 PO; +LISI-729 PO; -LISI10TA2 PO; +LISI10TA25 PO
[2020-08-17 09:26] VITALS: BP 144/73
--- NOTE | 2020-08-17 11:36 | Implantation of Loop Monitor ---
Implant of Loop Monitior IMPLANTATION OF LOOP MONITOR REPORT DATE OF PROCEDURE: 08/17/20 PREOP DIAGNOSIS: Paroxysmal atrial fibrillation POSTOP DIAGNOSIS: Paroxysmal atrial fibrillation PROCEDURE DETAILS: The patient is a 85 male with history of paroxysmal atrial fibrillation requiring long-term surveillance. Therefore implantable loop recorder was discussed and agreed with the patient. Informed consent was taken. All risks and complications were discussed at length. The patient was draped and prepped in the usual sterile fashion. Local anesthesia was lidocaine, which was given in the substernal area close to the 4th intercostal space. Loop monitor [employer] with serial number [id number] was implanted according to the protocol. Steri- Strips were placed at the end of the procedure. There were no complications and the patient tolerated the procedure well. The device was interrogated with a voltage of. ANESTHESIA: Local anesthesia with lidocaine. COMPLICATIONS: None CONTRAST/FLUOROSCOPY: None CONCLUSION: Successful implantation of loop monitor with no complication FINAL DIAGNOSIS: Paroxysmal atrial fibrillation Hypertension Palpitation KATTY JORDAN MD Aug 17, 2020 11:36 am
[2020-08-17 11:51] VITALS: BP 147/77
== END ==
LOC: CATH 09:30
PROVIDERS: ATTEND Internal Medicine Cardiovascular Disease
DX: I48.0 Paroxysmal atrial fibrillation (principal); I34.0 Nonrheumatic mitral (valve) insufficiency; I45.10 Unspecified right bundle-branch block; I11.9 Hypertensive heart disease without heart failure; E78.2 Mixed hyperlipidemia; Z79.82 Long term (current) use of aspirin; Z79.899 Other long term (current) drug therapy; Z87.891 Personal history of nicotine dependence
CPT/HCPCS: 33285; C1764

== ENCOUNTER 2020-09-01 11:17 | Outpatient (RCR) | payer MEDICARE, OTHER ==
[2020-08-02 11:04] LABS: INR 1.1 (0.8-1.4); PROTHROMBIN TIME PATIENT 14.4 SEC (12.2-14.7)
[2020-08-16 11:32] LABS: INR 1.1 (0.8-1.4); PROTHROMBIN TIME PATIENT 14.6 SEC (12.2-14.7)
[~2020-09-01 11:17] MED LIST changes: -LIDOCAINE 1% INJ 20 ML 20 ML VIAL INJ ONE; -LIDOCAINE 1% INJ 20 ML 20 ML VIAL ONE
[2020-09-01 11:44] LABS: PROTHROMBIN TIME PATIENT 13.6 SEC (12.2-14.7)
== END 2020-10-13 | disposition home or self-care (01) ==
LOC: LAB 11:17
PROVIDERS: ATTEND Internal Medicine Cardiovascular Disease
DX: I08.1 Rheumatic disorders of both mitral and tricuspid valves (principal); I45.10 Unspecified right bundle-branch block
CPT/HCPCS: 36415; 85610

== ENCOUNTER → 2020-11-03 | Outpatient (CLI) | payer MEDICARE, OTHER ==
--- NOTE | 2020-11-03 14:33 | Diagnostic Imaging Report ---
PROCEDURE: MRI lumbar spine. TECHNIQUE: Multiplanar, multisequence MRI of the lumbar spine was performed without contrast. DATE: November 03, 2020. COMPARISON: None. INDICATION: 85-year-old male, low back pain. FINDINGS: The alignment of the lumbar spine is unremarkable. There is no evidence of a diffuse marrow infiltrating or replacing process. There is no identified focal concerning bone lesion. There is no compression deformity or other fracture. The visualized cord and conus medullaris is unremarkable and terminates at the L1-L2 level. There is mild disc height loss at L4-L5 and moderate disc height loss at L5-S1. There are endplate degenerative related changes adjacent to the L4-L5 and L5-S1 and disc spaces. L1-L2: There is no disc bulge. The facet joints and ligamentum flavum are unremarkable. There is no foraminal narrowing. There is no spinal canal stenosis. L2-L3: There is no disc bulge. The facet joints and ligamentum flavum are unremarkable. There is no foraminal narrowing. There is no spinal canal stenosis. L3-L4: There is no disc bulge. The facet joints and ligamentum flavum are unremarkable. There is no foraminal narrowing. There is no spinal canal stenosis. L4-L5: There is mild diffuse disc bulge. There is moderate narrowing of the bilateral lateral recesses. The facet joints and ligamentum flavum are unremarkable. There is moderate bilateral foraminal narrowing. There is no spinal canal stenosis. L5-S1: There is minimal diffuse disc bulge eccentric to the right. The facet joints and ligamentum flavum are unremarkable. There is mild to moderate right foraminal narrowing. There is no spinal canal stenosis. IMPRESSION: 1. L4-L5 diffuse disc bulge with moderate narrowing of the bilateral lateral recesses, moderate bilateral foraminal narrowing, and no spinal stenosis. 2. Mild degenerative changes at L5-S1 with mild to moderate right foraminal narrowing. Dictated by: Dictated on workstation # [id number]
--- NOTE | 2020-11-03 15:13 | Diagnostic Imaging Report ---
PROCEDURE: MR imaging cervical spine without contrast. TECHNIQUE: Multiplanar, multisequence MR imaging of the cervical spine was performed without contrast. INDICATION: Increasing neck pain. COMPARISON: Cervical spine radiographs 07/27/2019. FINDINGS: Grade 1 anterolisthesis of C4 on C5 is stable. Alignment is otherwise normal. Modic type II degenerative endplate changes at C5-C7. No abnormal signal in the cervical spinal cord. The visualized paravertebral soft tissues are unremarkable. C2-C3: No spinal canal or neural foraminal narrowing. C3-C4: Annular disc bulge and ligamentous hypertrophy result in moderate spinal canal stenosis. Moderate to severe bilateral neural foraminal narrowing. C4-C5: Anterolisthesis and ligamentous hypertrophy result in moderate spinal canal stenosis. Facet arthropathy also contributes to severe left and moderate right neural foraminal narrowing. C5-C6: Disc osteophyte complex and ligamentous hypertrophy result in moderate spinal canal and severe bilateral neural foraminal narrowing. C6-C7: Disc osteophyte complex and ligamentous hypertrophy result in moderate spinal canal stenosis. Moderate bilateral neural foraminal narrowing. C7-T1: No substantial spinal canal or neural foraminal narrowing. IMPRESSION: 1. 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 No abnormal signal in the cervical spinal cord. 2. Multilevel high-grade neural foraminal narrowing, detailed above. Dictated by: Dictated on workstation # [id number]
== END ==
LOC: RAD 12:34
PROVIDERS: ATTEND Pain Medicine Interventional Pain Medicine
DX: M47.812 Spondylosis without myelopathy or radiculopathy, cervical region (principal); M47.817 Spondylosis without myelopathy or radiculopathy, lumbosacral region; M50.220 Other cervical disc displacement, mid-cervical region, unspecified level; M51.26 Other intervertebral disc displacement, lumbar region; M48.02 Spinal stenosis, cervical region; M48.061 Spinal stenosis, lumbar region without neurogenic claudication; M43.12 Spondylolisthesis, cervical region; M25.78 Osteophyte, vertebrae; M24.28 Disorder of ligament, vertebrae
CPT/HCPCS: 72141; 72148

== ENCOUNTER 2021-01-02 13:07 | Inpatient (IN) | payer MEDICARE ==
[~2021-01-02] VITALS: Ht 180.3 cm; Wt 74.8 kg
--- NOTE | 2021-01-02 14:12 | ED Abdominal Pain ---
General Chief Complaint: Rect Problems Stated Complaint: BLODDY DIARRHEA Nursing Triage Note: PT AMBULATE TO TRIAGE WITH C/O BLOOD DIARRHEA STARTING TODAY. PT REPORTS DIARRHEA STARTING YESTERDAY AND NOTICED BLOOD IN STOOL TODAY. Source of Information: Patient Exam Limitations: No Limitations History of Present Illness Date Seen by Provider: Jan 02, 2021 Time Seen by Provider: 13:58 Initial Comments This is a well-appearing 85-year-old male presents to the ER with complaints of blood in his stool. States that yesterday he developed bright red blood whenever he had bowel movement. He had a "size for "in his pants this morning. He went to urgent care and they checked his hemoglobin stating that it was 10. Recommended he go to the ER for further evaluation. No fever, chills, cough, shortness of breath, nausea, vomiting, abdominal pain at this time. However does note that he did have 4 episodes of vomiting yesterday morning. States that he used to be on warfarin for his atrial fibrillation however was switched to Xarelto 20 mg daily 2 months ago. Additionally states that he takes methotrexate once a week. Allergies and Home Medications Allergies Coded Allergies: No Known Drug Allergies (Unverified , 01/07/19) Patient Home Medication List Home Medication List Reviewed: Yes Alfuzosin HCl (Alfuzosin HCl ER) 10 Mg Tab.er.24h, 10 MG PO DAILY, (Reported) Entered as Reported by: TJ GONZALEZ on 01/08/191006 Amiodarone HCl (Amiodarone HCl) 200 Mg Tablet, 200 MG PO UD Prescribed by: KATTY JORDAN on 01/10/19801 Apixaban (Eliquis) 5 Mg Tablet, 5 MG PO BID Prescribed by: KATTY JORDAN on 01/10/19801 Aspirin (Aspirin EC) 81 Mg Tablet.dr, 81 MG PO DAILY Prescribed by: KATTY JORDAN on 01/10/19801 Atorvastatin Calcium (Lipitor) 10 Mg Tablet, 10 MG PO HS Prescribed by: KATTY JORADN on 01/10/19 08 Finasteride (Finasteride) 5 Mg Tablet, 5 MG PO HS, (Reported) Entered as Reported by: TJ GONZALEZ on 01/08/191006 Folic Acid (Folic Acid) 0.4 Mg Tablet, 1.2 MG [facility], ([facility]) Entered as Reported by: TJ GONZALEZ on 01/08/191006 Glipizide (Glipizide) 5 Mg Tablet, 5 MG PO HS, (Reported) Entered as Reported by: TJ GONZALEZ on 01/08/191006 Lisinopril (Lisinopril) 5 Mg Tablet, 5 MG PO DAILY Prescribed by: KATTY JORDAN on 01/10/19 08 Metformin HCl (Metformin HCl) 1,000 Mg Tablet, 1,000 MG PO BID, (Reported) Entered as Reported by: TJ GONZALEZ on 01/08/191006 Methotrexate Sodium (Methotrexate) 2.5 Mg Tablet, 10 MG PO We, (Reported) Entered as Reported by: TJ GONZALEZ on 01/08/19 101 Metoprolol Succinate (Toprol Xl) 25 Mg Tab.er.24h, 25 MG PO DAILY Prescribed by: KATTY JORDAN on 01/10/19 08 Multivit-Min/FA/Lycopene/Lut (Centrum Silver Ultra Men's Tab) 1 Each Tablet, 1 TAB PO DAILY, (Reported) Entered as Reported by: TJ GONZALEZ on 01/08/191006 Niacin (Inositol Niacinate) (Niacin 500 mg Capsule) 500 Mg Capsule, 500 MG PO HS, (Reported) Entered as Reported by: TJ GONZALEZ on 01/08/191006 Pantoprazole Sodium (Protonix) 40 Mg Granpkt.dr, 40 MG PO DAILY Prescribed by: KATTY JORDAN on 01/10/19 08 Sildenafil Citrate (Sildenafil) 20 Mg Tablet, 20 MG PO DAILY PRN for ED, (Reported) Entered as Reported by: TJ GONZALEZ on 01/08/19 1011 Review of Systems Review of Systems Constitutional: no symptoms reported EENTM: No Symptoms Reported Respiratory: No Symptoms Reported Cardiovascular: No Symptoms Reported Gastrointestinal: See HPI Genitourinary: No Symptoms Reported Musculoskeletal: no symptoms reported Skin: no symptoms reported Psychiatric/Neurological: No Symptoms Reported Endocrine: No Symptoms Reported Hematologic/Lymphatic: No Symptoms Reported Past Fwkzpem-Lkhubn-Thqugz Hx Patient Social History Tobacco Use?: No Smoking Status: Former Smoker Smokeless Tobacco Frequency: Never a User Substance use?: No Alcohol Use?: No Pt feels they are or have been: No Immunizations Up To Date First/Initial COVID19 Vaccinat: 09/2020 Second COVID19 Vaccination Andrew: 10/2020 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 Seasonal Allergies Seasonal Allergies: No Past Medical History Surgeries: Yes (BILAT SHOULDER, BILAT KNEE, HAND AND WRIST, Neck surgery) Appendectomy, Orthopedic, Tonsillectomy Respiratory: No Cardiac: Yes High Cholesterol, Hypertension Neurological: No Genitourinary: Yes Prostate Problems Gastrointestinal: Yes (DIVERTICULITIS) Musculoskeletal: No Endocrine: Yes Diabetes, Non-Insulin dep HEENT: Yes Cataract Loss of Vision: Denies Hearing Impairment: Hard of Hearing, Hearing Aide Right, Hearing Aide Left Cancer: No Psychosocial: No Integumentary: Yes Psoriasis Blood Disorders: No Family Medical History CANCER 19 MOTHER Physical Exam Vital Signs Vital Signs - First Documented 01/02/21 13:45 Temp 36.9 Pulse 75 Resp 16 B/P (MAP) 94/49 (64) O2 Delivery Room Air Capillary Refill : Less Than 3 Seconds Height/Weight/BMI Height: '" Weight: 165lbs. 0.0oz. [id number]; 23.00 BMI Method: General Appearance: WD/WN, no apparent distress HEENT: PERRL/EOMI, normal ENT inspection, pharynx normal Neck: full range of motion, normal inspection Respiratory: lungs clear, normal breath sounds, no respiratory distress, no accessory muscle use Cardiovascular: regular rate, rhythm, no edema, no gallop, no murmur Gastrointestinal: normal bowel sounds, soft; No distended; tenderness (generalized ) Rectal: normal exam, normal rectal tone Extremities: normal range of motion, normal inspection, no pedal edema, normal capillary refill Back: normal inspection, no CVA tenderness, no vertebral tenderness Male: normal genitalia Neurologic/Psychiatric: no motor/sensory deficits, alert, normal mood/affect, oriented x 3 Skin: normal color, warm/dry Progress/Results/Core Measures Results/Orders Lab Results Laboratory Tests Test 01/02/21 14:24 Range/Units White Blood Count 15.1 H 4.3-11.0 10^3/uL Red Blood Count 3.55 L 4.30-5.52 10^6/uL Hemoglobin 11.1 L 13.3-17.7 g/dL Hematocrit 35 L 40-54 % Mean Corpuscular Volume 98 80-99 fL Mean Corpuscular Hemoglobin 31 25-34 pg Mean Corpuscular Hemoglobin Concent 32 32-36 g/dL Red Cell Distribution Width 15.7 H 10.0-14.5 % Platelet Count 326 130-400 10^3/uL Mean Platelet Volume 9.5 9.0-12.2 fL Immature Granulocyte % (Auto) 0 % Neutrophils (%) (Auto) 84 H 42-75 % Lymphocytes (%) (Auto) 7 L 12-44 % Monocytes (%) (Auto) 8 0-12 % Eosinophils (%) (Auto) 1 0-10 % Basophils (%) (Auto) 0 0-10 % Neutrophils # (Auto) 12.7 H 1.8-7.8 X 10^3 Lymphocytes # (Auto) 1.1 1.0-4.0 X 10^3 Monocytes # (Auto) 1.2 H 0.0-1.0 X 10^3 Eosinophils # (Auto) 0.1 0.0-0.3 10^3/uL Basophils # (Auto) 0.0 0.0-0.1 10^3/uL Immature Granulocyte # (Auto) 0.1 0.0-0.1 10^3/uL Neutrophils % (Manual) 82 % Lymphocytes % (Manual) 11 % Monocytes % (Manual) 7 % Clumped Platelets SLIGHT Poikilocytosis SLIGHT Anisocytosis SLIGHT Prothrombin Time 21.8 H 12.2-14.7 SEC INR Comment 1.9 H 0.8-1.4 Sodium Level 136 135-145 MMOL/L Potassium Level 3.8 3.6-5.0 MMOL/L Chloride Level 102 98-107 MMOL/L Carbon Dioxide Level 23 21-32 MMOL/L Anion Gap 11 5-14 MMOL/L Blood Urea Nitrogen 30 H 7-18 MG/DL Creatinine 2.26 H 0.60-1.30 MG/DL Estimat Glomerular Filtration Rate 28 BUN/Creatinine Ratio 13 Glucose Level 222 H 70-105 MG/DL Calcium Level 9.5 8.5-10.1 MG/DL Corrected Calcium 9.7 8.5-10.1 MG/DL Total Bilirubin 0.6 0.1-1.0 MG/DL Aspartate Amino Transf (AST/SGOT) 15 5-34 U/L Alanine Aminotransferase (ALT/SGPT) 18 0-55 U/L Alkaline Phosphatase 75 40-136 U/L C-Reactive Protein High Sensitivity 13.83 H 0.00-0.50 MG/DL Total Protein 6.8 6.4-8.2 GM/DL Albumin 3.7 3.2-4.5 GM/DL Procalcitonin 3.16 H <0.10 NG/ML My Orders Orders - MINGO CRUMP Lucy [employer] Cbc With Automated Diff (01/02/21 13:13) Comprehensive Metabolic Panel (01/02/21 13:13) Hs C Reactive Protein (01/02/21 13:13) Ekg Tracing (01/02/21 14:08) Protime With Inr (01/02/21 14:08) Iohexol Injection (Omnipaque 350 Mg/Ml 1 (01/02/21 14:30) Di Iv Start (Assessment) .IV start (01/02/21 14:21) Received Contrast (Hold Metformin- Contr (01/02/21 14:30) Sodium Chloride Flush (Catheter Flush Sy (01/02/21 14:30) Ns (Ivpb) (Sodium Chloride 0.9% Ivpb Bag (01/02/21 14:30) Ed Iv/Invasive Line Start (01/02/21 14:26) Manual Differential (01/02/21 14:24) Ct Abdomen/Pelvis Wo (01/02/21 14:56) Procalcitonin (Pct) (01/02/21 15:38) Ciprofloxacin Iv 400mg/200ml (Cipro Iv S (01/02/21 16:00) Vital Signs/I&O 01/02/21 13:45 Temp 36.9 Pulse 75 Resp 16 B/P (MAP) 94/49 (64) O2 Delivery Room Air Blood Pressure Mean: 64 Progress Progress Note : Progress Note Well-appearing 85-year-old male. No acute distress. Except on exam with patient. He said this does cause some mild discomfort. He is noted to be on Xarelto and was recently from his warfarin 2 months ago. This could be source of blood. However will obtain basic labs, CRP, and obtain CT of abdomen. No lesions, fissures, or hemorrhoids noted on exam. Labs reviewed. Elevated WBC and CRP. CT abd/pelvis w/o shows subacute diverticulitis. This is likely contributor to his rectal bleeding. Consulted with Dr. Shelton with general surgery. Recommends admission to medical for antibiotics. He will follow. Discussed case with Dr. Belle hospitalist. Will admit to medical unit. Will treat with Cipro and Flagyl. Denies need for pain medication at this time. POC discussed with patient and spouse, they are agreeable with plan. He is stable to transfer to medical unit. Initial ECG Impression Date: Jan 02, 2021 Departure Communication (Admissions) Time/Spoke to Admitting Phy: 15:41 Dr. Belle Impression Primary Impression: Diverticulitis Additional Impressions: Hematochezia CKD (chronic kidney disease) Disposition: ADMITTED INPATIENT Condition: Stable Admissions Decision to Admit Reason: Admit from ER (General) Decision to Admit/Date: Jan 02, 2021 Time/Decision to Admit Time: 15:40 Departure-Patient Inst. Referrals: NO,LOCAL PHYSICIAN (PCP) Primary Care Physician PAOLA ANDERSON (Family) Primary Care Physician MINGO CRUMP APRN Jan 02, 2021 14:12
[2021-01-02 14:30] LABS: BASOPHILS % (AUTO) 0 % (0-10); EOSINOPHILS # (AUTO) 0.1 10^3/uL (0.0-0.3); EOSINOPHILS % (AUTO) 1 % (0-10); HEMATOCRIT 35 % (40-54); HEMOGLOBIN 11.1 g/dL (13.3-17.7); LYMPHOCYTES # (AUTO) 1.1 X 10^3 (1.0-4.0); LYMPHOCYTES % (AUTO) 7 % (12-44); MEAN CORPUSCULAR HEMOGLOBIN 31 pg (25-34); MEAN CORPUSCULAR HGB CONC 32 g/dL (32-36); MEAN CORPUSCULAR VOLUME 98 fL (80-99); MEAN PLATELET VOLUME 9.5 fL (9.0-12.2); MONOCYTES # (AUTO) 1.2 X 10^3 (0.0-1.0); MONOCYTES % (AUTO) 8 % (0-12); NEUTROPHILS # (AUTO) 12.7 X 10^3 (1.8-7.8); NEUTROPHILS % (AUTO) 84 % (42-75); PLATELET COUNT 326 10^3/uL (130-400); WHITE BLOOD COUNT 15.1 10^3/uL (4.3-11.0)
[2021-01-02] MEDS ORDERED: NS 100 ML (IVPB) BAG IV ONE (14:30)
[2021-01-02] MEDS ORDERED: IOHEXOL 350 MG/ML 100 ML (OMNIPAQUE 350) VIAL IV ONE (14:30)
[2021-01-02] MEDS ORDERED: HOLD METFORMIN - RECEIVED CONTRAST 20 ML VIAL IV SCH (14:30)
[2021-01-02] MEDS ORDERED: CATHETER FLUSH 10 ML SYR IV PRN (14:30)
[2021-01-02 14:39] LABS: ALBUMIN 3.7 GM/DL (3.2-4.5); POTASSIUM 3.8 MMOL/L (3.6-5.0)
[2021-01-02 14:40] LABS: CALCIUM 9.5 MG/DL (8.5-10.1)
[2021-01-02 14:42] LABS: TOTAL PROTEIN 6.8 GM/DL (6.4-8.2)
[2021-01-02 14:43] LABS: BILIRUBIN,TOTAL 0.6 MG/DL (0.1-1.0)
[2021-01-02 14:45] LABS: CREATININE SERUM 2.26 MG/DL (0.60-1.30)
[2021-01-02 14:46] LABS: INR 1.9 (0.8-1.4); PROTHROMBIN TIME PATIENT 21.8 SEC (12.2-14.7)
[2021-01-02 14:53] LABS: ANISOCYTOSIS SLIGHT; LYMPHOCYTES % (MANUAL) 11 %; MONOCYTES % (MANUAL) 7 %; NEUTROPHILS % (MANUAL) 82 %; PLATELET CLUMPS SLIGHT; POIKILOCYTOSIS SLIGHT
--- NOTE | 2021-01-02 15:33 | Diagnostic Imaging Report ---
CT ABDOMEN/PELVIS WO TECHNIQUE: Unenhanced CT imaging of the abdomen and pelvis was performed. 2-D reformats are created and submitted for interpretation. Automatic exposure controls were utilized to optimize patient dose. INDICATION: Generalized abdominal pain and discomfort. COMPARISON: None available. FINDINGS: Evaluation of the abdominal viscera is mildly limited without contrast. Lower chest: Bibasilar septal lines and trace right effusion. Heart is not enlarged. Peritoneum: No free intraperitoneal air or fluid. Liver and biliary system: Unenhanced liver is normal. Cholelithiasis without features of acute cholecystitis. Spleen and Pancreas: Spleen is normal. Unenhanced pancreas is grossly normal. Adrenals: Normal. tract: No renal or ureteral calculi. No obstructive uropathy. Urinary bladder is decompressed, limiting assessment. Prostate is upper limits of normal in size. GI tract: Moderate sized hiatal hernia. No bowel obstruction. Descending and sigmoid colon diverticulosis. There is some mild induration within the pericolonic fat of the sigmoid and descending colon raising the possibility of acute-subacute diverticulitis. Appendix is likely surgically absent. Vasculature and Lymph nodes: Normal caliber aorta. There is a stent present within the left common iliac artery. No abdominal or pelvic lymphadenopathy. Musculoskeletal: No concerning osseous lesion. IMPRESSION: 1. Descending and sigmoid colon diverticulosis with mild wall thickening and surrounding induration is suspicious for acute-subacute diverticulitis. 2. No abscess or perforation. 3. Basilar septal lines could be due to interstitial edema in the acute setting, although there is also the possibility that these are chronic in nature. Dictated by: Dictated on workstation # [id number]
[2021-01-02] MEDS ORDERED: CIPROFLOXACIN IV 400MG/200ML 200 ML IV ONE (16:00)
[2021-01-02] MEDS ORDERED: NS IV 1000 ML 1,000 ML ONE (16:44)
[2021-01-02 16:50] VITALS: BP 126/64
[2021-01-02] MEDS: NS IV 1000 ML 1,000 ML IV SCH (16:52)
[2021-01-02 16:53] VITALS: BP 94/49
[2021-01-02] MEDS: LACTOBACILLUS ACIDOPHILUS (PROBIOTIC) CAPSULE PO SCH ×2 (16:54→21:32)
[2021-01-02] MEDS ORDERED: fentaNYL INJ 100 MCG/2 ML AMP IV PRN (17:00)
[2021-01-02] MEDS ORDERED: RT-ALBUTEROL/IPRATROPIUM 3 ML (DUONEB) VIAL INH PRN (17:00)
[2021-01-02] MEDS ORDERED: ONDANSETRON 4 MG/2 ML (SDV) Z0FRAN IV PRN (17:00)
[2021-01-02] MEDS ORDERED: ACETAMINOPHEN 325 MG TABLET PO PRN (17:00)
--- NOTE | 2021-01-02 17:15 | Consultation - Surgery ---
JOSEANNA HARMON 01/02/21 1715: History of Present Illness History of Present Illness Patient Consulted On(cristy/time) 01/02/21 17:09 Date Seen by Provider: Jan 02, 2021 Time Seen by Provider: 05:00 Reason for Visit: Blood in stool History of Present Illness Patient is an 85 yo male presenting today for hematochezia. He had diarrhea all day yesterday that had a significant amount of bright red blood in it. He reports that he first saw blood in his stool a couple of days ago. He fell down yesterday due to dizziness, which he has had for a while now but has recently been worse. He had nausea and vomiting yesterday. He denies any fever recently. He has recently been constipated since he switched from Metformin to Ozempic, and has been taking a stool softener at night to help with bowel movements. His last colonoscopy was in 2014 which revealed diverticulosis. He denies any heart burn or dysphagia. He denies having any abdominal pain except for slight pain that "lets him know when its time to use the restroom". Allergies and Home Medications Allergies Coded Allergies: No Known Drug Allergies (Unverified , 01/07/19) Patient Home Medication List Alfuzosin HCl (Alfuzosin HCl ER) 10 Mg Tab.er.24h, 10 MG PO DAILY, (Reported) Entered as Reported by: TJ GONZALEZ on 01/08/191006 Amiodarone HCl (Amiodarone HCl) 200 Mg Tablet, 200 MG PO UD Prescribed by: KATTY JORDAN on 01/10/19 08 Apixaban (Eliquis) 5 Mg Tablet, 5 MG PO BID Prescribed by: KATTY JORDAN on 01/10/19 08 Aspirin (Aspirin EC) 81 Mg Tablet.dr, 81 MG PO DAILY Prescribed by: KATTY JORDAN on 01/10/19 08 Atorvastatin Calcium (Lipitor) 10 Mg Tablet, 10 MG PO HS Prescribed by: KATTY JORDAN on 01/10/19 08 Finasteride (Finasteride) 5 Mg Tablet, 5 MG PO HS, (Reported) Entered as Reported by: TJ GONZALEZ on 01/08/191006 Folic Acid (Folic Acid) 0.4 Mg Tablet, 1.2 MG PO [facility], (Reported) Entered as Reported by: TJ GONZALEZ on 01/08/191006 Glipizide (Glipizide) 5 Mg Tablet, 5 MG PO HS, (Reported) Entered as Reported by: TJ GONZALEZ on 01/08/191006 Lisinopril (Lisinopril) 5 Mg Tablet, 5 MG PO DAILY Prescribed by: KATTY JORDAN on 01/10/19 08 Metformin HCl (Metformin HCl) 1,000 Mg Tablet, 1,000 MG PO BID, (Reported) Entered as Reported by: TJ GONZALEZ on 01/08/191006 Methotrexate Sodium (Methotrexate) 2.5 Mg Tablet, 10 MG PO We, (Reported) Entered as Reported by: TJ GONZALEZ on 01/08/19 1011 Metoprolol Succinate (Toprol Xl) 25 Mg Tab.er.24h, 25 MG PO DAILY Prescribed by: KATTY JORDAN on 01/10/19 08 Multivit-Min/FA/Lycopene/Lut (Centrum Silver Ultra Men's Tab) 1 Each Tablet, 1 TAB PO DAILY, (Reported) Entered as Reported by: TJ GONZALEZ on 01/08/191006 Niacin (Inositol Niacinate) (Niacin 500 mg Capsule) 500 Mg Capsule, 500 MG PO HS, (Reported) Entered as Reported by: TJ GONZALEZ on 01/08/191006 Pantoprazole Sodium (Protonix) 40 Mg Granpkt.dr, 40 MG PO DAILY Prescribed by: KATTY JORDAN on 01/10/19 08 Sildenafil Citrate (Sildenafil) 20 Mg Tablet, 20 MG PO DAILY PRN for ED, (Reported) Entered as Reported by: TJ GONZALEZ on 01/08/19 1011 Past Lkpgaeu-Dhmqhb-Wnyonk Hx Patient Social History Smoking Status: Former Smoker Former Smoker, Quit: Dec 21, 1996 Type Used: Cigars 2nd Hand Smoke Exposure: No Recent Hopitalizations: No Alcohol Use?: Yes Have you traveled recently?: No Immunizations Up To Date Date of Pneumonia Vaccine: Feb 12, 2019 Date of Influenza Vaccine: Mar 16, 2020 Seasonal Allergies Seasonal Allergies: No Surgeries History of Surgeries: Yes (BILAT SHOULDER, BILAT KNEE, HAND AND WRIST, Neck surgery) Surgeries: Appendectomy, Orthopedic, Tonsillectomy Respiratory History of Respiratory Disorde: No Cardiovascular History of Cardiac Disorders: Yes Cardiac Disorders: High Cholesterol, Hypertension Neurological History of Neurological Disord: No Genitourinary History of Genitourinary Disor: Yes Genitourinary Disorders: Prostate Problems Gastrointestinal History of Gastrointestinal Di: Yes (DIVERTICULITIS) Musculoskeletal History of Musculoskeletal Dis: No Endocrine History of Endocrine Disorders: Yes Endocrine Disorders: Diabetes, Non-Insulin dep HEENT History of HEENT Disorders: Yes HEENT Disorders: Cataract Loss of Vision: Denies Hearing Impairment: Hard of Hearing, Hearing Aide Right, Hearing Aide Left Cancer History of Cancer: No Psychosocial History of Psychiatric Problem: No Integumentary History of Skin or Integumenta: Yes Skin/Integumentary Disorders: Psoriasis Blood Transfusions History of Blood Disorders: No Family Medical History Family Medial History: CANCER 19 MOTHER Review of Systems-General Constitutional: No chills; dizziness; No fever EENTM: hearing loss Respiratory: cough, phlegm Gastrointestinal: constipation, diarrhea, nausea, vomiting Genitourinary: no symptoms reported Musculoskeletal: neck pain Physical Exam-General Problems Physical Exam Vital Signs Vital Signs - First Documented 01/02/21 01/02/21 01/02/21 13:45 16:50 16:53 Temp 36.9 Pulse 75 Resp 16 B/P (MAP) 94/49 (64) Pulse Ox 98 O2 Delivery Room Air FiO2 21 Capillary Refill : Less Than 3 Seconds General Appearance: WD/WN, no apparent distress HEENT: PERRL/EOMI Neck: supple, normal inspection Respiratory: chest non-tender, lungs clear, normal breath sounds, no respiratory distress, no accessory muscle use Cardiovascular: regular rate, rhythm Gastrointestinal: non tender, soft Extremities: normal inspection Neurologic/Psychiatric: alert, normal mood/affect, oriented x 3 Skin: normal color, warm/dry Data Review Labs Laboratory Tests 01/02/21 14:24: White Blood Count 15.1H, Red Blood Count 3.55L, Hemoglobin 11.1L, Hematocrit 35L , Mean Corpuscular Volume 98, Mean Corpuscular Hemoglobin 31, Mean Corpuscular Hemoglobin Concent 32, Red Cell Distribution Width 15.7H, Platelet Count 326, Mean Platelet Volume 9.5, Immature Granulocyte % (Auto) 0, Neutrophils (%) (Auto) 84H, Lymphocytes (%) (Auto) 7L, Monocytes (%) (Auto) 8, Eosinophils (%) (Auto) 1, Basophils (%) (Auto) 0, Neutrophils # (Auto) 12.7H, Lymphocytes # (Auto) 1.1, Monocytes # (Auto) 1.2H, Eosinophils # (Auto) 0.1, Basophils # (Auto) 0.0, Immature Granulocyte # (Auto) 0.1, Neutrophils % (Manual) 82, Lymphocytes % (Manual) 11, Monocytes % (Manual) 7, Clumped Platelets SLIGHT, Poikilocytosis SLIGHT, Anisocytosis SLIGHT, Prothrombin Time 21.8H, INR Comment 1.9H, Sodium Level 136, Potassium Level 3.8, Chloride Level 102, Carbon Dioxide Level 23, Anion Gap 11, Blood Urea Nitrogen 30H, Creatinine 2.26H, Estimat Glomerular Filtration Rate 28, BUN/Creatinine Ratio 13, Glucose Level 222H, Calcium Level 9.5, Corrected Calcium 9.7, Total Bilirubin 0.6, Aspartate Amino Transf (AST/SGOT) 15, Alanine Aminotransferase (ALT/SGPT) 18, Alkaline Phosphatase 75, C-Reactive Protein High Sensitivity 13.83H, Total Protein 6.8, Albumin 3.7, Procalcitonin 3.16H Assessment/Plan Assessment/Plan Assessment/Plan Diverticulitis - Continue IV fluids and Cipro. Re-evaluate in the morning. Hematochezia CKD ITZEL MOMIN DO 01/02/212058: History of Present Illness History of Present Illness History of Present Illness Patient is an 85-year-old male who presents with a day and a half of bright red blood per rectum. Patient states that is a fair amount of bleeding he has been having. He states that he has some lower pelvis type pain more in the left lower quadrant of the abdomen. Patient pain is moderate aching type pain. No radiation stays pretty much in the lower abdomen. Patient having some nausea and vomiting. Nothing was seems to make his pain better or worse. Denies any nausea vomiting fever sweats chills shortness of breath or chest pain at this time. CT scan demonstrating diverticulosis with a small area suggestive of acute diverticulitis. Allergies and Home Medications Allergies Coded Allergies: No Known Drug Allergies (Unverified , 01/07/19) Patient Home Medication List Home Medication List Reviewed: Yes Alfuzosin HCl (Alfuzosin HCl ER) 10 Mg Tab.er.24h, 10 MG PO DAILY, (Reported) Entered as Reported by: TJ GONZALEZ on 01/08/191006 Amiodarone HCl (Amiodarone HCl) 200 Mg Tablet, 200 MG PO UD Prescribed by: KATTY JORDAN on 01/10/19 08 Apixaban (Eliquis) 5 Mg Tablet, 5 MG PO BID Prescribed by: KATTY JORDAN on 01/10/19 08 Aspirin (Aspirin EC) 81 Mg Tablet.dr, 81 MG PO DAILY Prescribed by: KATTY JORDAN on 01/10/19 08 Atorvastatin Calcium (Lipitor) 10 Mg Tablet, 10 MG PO HS Prescribed by: KATTY JORDAN on 01/10/19 08 Finasteride (Finasteride) 5 Mg Tablet, 5 MG PO HS, (Reported) Entered as Reported by: TJ GONZALEZ on 01/08/191006 Folic Acid (Folic Acid) 0.4 Mg Tablet, 1.2 MG PO SuMoTuThFrSa, (Reported) Entered as Reported by: TJ GONZALEZ on 01/08/191006 Glipizide (Glipizide) 5 Mg Tablet, 5 MG PO HS, (Reported) Entered as Reported by: TJ GONZALEZ on 01/08/191006 Lisinopril (Lisinopril) 5 Mg Tablet, 5 MG PO DAILY Prescribed by: KATTY JORDAN on 01/10/19 08 Metformin HCl (Metformin HCl) 1,000 Mg Tablet, 1,000 MG PO BID, (Reported) Entered as Reported by: TJ GONZALEZ on 01/08/191006 Methotrexate Sodium (Methotrexate) 2.5 Mg Tablet, 10 MG PO We, (Reported) Entered as Reported by: TJ GONZALEZ on 01/08/19 1011 Metoprolol Succinate (Toprol Xl) 25 Mg Tab.er.24h, 25 MG PO DAILY Prescribed by: KATTY JORDAN on 01/10/19 08 Multivit-Min/FA/Lycopene/Lut (Centrum Silver Ultra Men's Tab) 1 Each Tablet, 1 TAB PO DAILY, (Reported) Entered as Reported by: TJ GONZALEZ on 01/08/191006 Niacin (Inositol Niacinate) (Niacin 500 mg Capsule) 500 Mg Capsule, 500 MG PO HS, (Reported) Entered as Reported by: TJ GONZALEZ on 9/19/19 1007 Pantoprazole Sodium (Protonix) 40 Mg , 40 MG PO DAILY Prescribed by: KATTY JORDAN on 01/10/19 0802 Sildenafil Citrate (Sildenafil) 20 Mg Tablet, 20 MG PO DAILY PRN for ED, (Reported) Entered as Reported by: TJ GONZALEZ on 01/08/19 1011 Past Niclkgk-Wdaqch-Rjmmff Hx Surgeries History of Surgeries: Yes Surgeries: Orthopedic Cardiovascular Cardiac Disorders: Atrial Fibrillation Reviewed Nursing Assessment Reviewed/Agree w Nursing PMH: Yes Family Medical History Significant Family History: No Pertinent Family Hx Family Medial History: CANCER 19 MOTHER Review of Systems-General Constitutional: dizziness EENTM: No hearing loss, No blurred vision, No double vision Respiratory: No dyspnea on exertion, No short of breath Gastrointestinal: constipation, diarrhea, nausea, vomiting Genitourinary: No decreased output, No discharge Musculoskeletal: No back pain, No gout, No joint pain; neck pain Skin: No change in color, No change in hair/nails Psychiatric/Neurological: Denies Anxiety, Denies Depressed, Denies Emotional Problems All Other Systems Reviewed Negative Unless Noted: Yes (Negative excepted noted.) Physical Exam-General Problems Physical Exam General Appearance: WD/WN, no apparent distress HEENT: PERRL/EOMI, normal ENT inspection Neck: non-tender, supple, normal inspection Respiratory: chest non-tender, no respiratory distress, no accessory muscle use Cardiovascular: no JVD Gastrointestinal: soft, tenderness (minimal in llq of abdomen) Rectal: deferred Back: normal inspection, no CVA tenderness Extremities: non-tender, normal inspection Neurologic/Psychiatric: alert, normal mood/affect, oriented x 3 Skin: normal color, warm/dry Lymphatic: no adenopathy Assessment/Plan Assessment/Plan Assessment/Plan LLQ abdominal pain hematochezia sigmoid diverticulitis/diverticulosis atrial fibrillaiton long-term anticoagulation Patient be kept on clear liquids. Follow hemoglobin transfuse as needed. Patient on ciprofloxacin will add Flagyl 500 3 times daily. Patient will need outpatient colonoscopy if gets discharged before having 1. Would ideally do this in about 6 weeks. All questions answered. Patient with no other complaints. Supervisory-Addendum Brief Verification & Attestation Participated in pt care: history, MDM, physical Personally performed: exam, history, MDM, supervision of care Care discussed with: Medical Student Procedures: n/a Results interpretation: Verified all documentation Verification and Attestation of Medical Student E/M Service A medical student performed and documented this service in my presence. I reviewed and verified all information documented by the medical student and made modifications to such information, when appropriate. I personally performed the physical exam and medical decision making. Itzel Momin, Jan 02, 2021,21:03 ANNA GARCIA Jan 02, 2021 17:15 ITZEL MOMIN DO Jan 02, 2021 20:59
[2021-01-02 20:28] VITALS: BP 104/58
[2021-01-02] MEDS: metroNIDAZOLE 500MG/100ML IVPB 100 ML IV SCH (21:33)
[2021-01-02] MEDS: inSUlin ASPART (NovoLOG) 1 UNIT/0.01 ML (CHARGE PER UNIT) SC SCH (21:46)
[2021-01-03 00:01] VITALS: BP 103/59
[2021-01-03 03:16] VITALS: BP 90/64
[2021-01-03] MEDS: NS IV 1000 ML 1,000 ML IV SCH ×2 (05:29→21:07)
[2021-01-03] MEDS: inSUlin ASPART (NovoLOG) 1 UNIT/0.01 ML (CHARGE PER UNIT) SC SCH ×4 (05:32→21:52)
[2021-01-03 06:24] LABS: BASOPHILS % (AUTO) 0 % (0-10); EOSINOPHILS # (AUTO) 0.4 10^3/uL (0.0-0.3); EOSINOPHILS % (AUTO) 3 % (0-10); HEMATOCRIT 32 % (40-54); HEMOGLOBIN 9.9 g/dL (13.3-17.7); LYMPHOCYTES # (AUTO) 1.3 10^3/uL (1.0-4.0); LYMPHOCYTES % (AUTO) 12 % (12-44); MEAN CORPUSCULAR HEMOGLOBIN 31 pg (25-34); MEAN CORPUSCULAR HGB CONC 31 g/dL (32-36); MEAN CORPUSCULAR VOLUME 98 fL (80-99); MEAN PLATELET VOLUME 10.3 fL (9.0-12.2); MONOCYTES % (AUTO) 9 % (0-12); NEUTROPHILS # (AUTO) 8.4 10^3/uL (1.8-7.8); NEUTROPHILS % (AUTO) 75 % (42-75); PLATELET COUNT 284 10^3/uL (130-400); WHITE BLOOD COUNT 11.2 10^3/uL (4.3-11.0)
[2021-01-03 06:33] LABS: POTASSIUM 3.7 MMOL/L (3.6-5.0)
[2021-01-03 06:34] LABS: CALCIUM 8.9 MG/DL (8.5-10.1)
[2021-01-03 06:38] LABS: CREATININE SERUM 1.56 MG/DL (0.60-1.30)
--- NOTE | 2021-01-03 07:52 | Progress Note - Surgery ---
ANNA GARCIA 01/03/21 0752: Subjective Date Seen by a Provider: Jan 03, 2021 Time Seen by a Provider: 07:15 Subjective/Events-last exam Patient is feeling well this morning. He reports no abdominal pain, no nausea/vomiting, no sweats or chills. He has not had a bowel movement since showing up at the hospital yesterday, which was described as loose stool with some blood. He ate some soup last night without any issue. He denies and SOA. Objective Exam Vital Signs Date Time Temp Pulse Resp B/P (MAP) Pulse Ox O2 Delivery O2 Flow Rate FiO2 01/03/21 03:16 36.8 65 18 90/64 (73) 95 Room Air 01/03/21 00:01 36.8 65 16 103/59 (74) 94 Room Air 01/02/21 20:28 35.2 79 14 104/58 (73) 96 Room Air 01/02/21 20:00 Room Air 01/02/21 17:50 Room Air 01/02/21 16:53 36.9 75 98 21 01/02/21 16:50 35.2 66 12 126/64 (84) 98 Room Air 01/02/21 16:31 66 16 106/61 96 Room Air 01/02/21 13:45 36.9 75 16 94/49 (64) Room Air I & O 01/03/21 07:00 Intake Total 1600 ml Balance 1600 ml Capillary Refill : Less Than 3 Seconds General Appearance: No Apparent Distress HEENT: PERRL/EOMI Neck: Normal Inspection, Supple Respiratory: Chest Non Tender, Lungs Clear, Normal Breath Sounds, No Accessory Muscle Use, No Respiratory Distress Cardiovascular: Regular Rate, Rhythm Gastrointestinal: normal bowel sounds, soft; No distended; tenderness (generalized) Extremity: Normal Inspection Neurologic/Psychiatric: Alert, Oriented x3, Normal Mood/Affect Skin: Normal Color, Warm/Dry Results Lab Laboratory Tests 01/02/21 14:24: White Blood Count 15.1H, Red Blood Count 3.55L, Hemoglobin 11.1L, Hematocrit 35L , Mean Corpuscular Volume 98, Mean Corpuscular Hemoglobin 31, Mean Corpuscular Hemoglobin Concent 32, Red Cell Distribution Width 15.7H, Platelet Count 326, Mean Platelet Volume 9.5, Immature Granulocyte % (Auto) 0, Neutrophils (%) (Auto) 84H, Lymphocytes (%) (Auto) 7L, Monocytes (%) (Auto) 8, Eosinophils (%) (Auto) 1, Basophils (%) (Auto) 0, Neutrophils # (Auto) 12.7H, Lymphocytes # (Auto) 1.1, Monocytes # (Auto) 1.2H, Eosinophils # (Auto) 0.1, Basophils # (Auto) 0.0, Immature Granulocyte # (Auto) 0.1, Neutrophils % (Manual) 82, Lymphocytes % (Manual) 11, Monocytes % (Manual) 7, Clumped Platelets SLIGHT, Poikilocytosis SLIGHT, Anisocytosis SLIGHT, Prothrombin Time 21.8H, INR Comment 1.9H, Sodium Level 136, Potassium Level 3.8, Chloride Level 102, Carbon Dioxide Level 23, Anion Gap 11, Blood Urea Nitrogen 30H, Creatinine 2.26H, Estimat Glomerular Filtration Rate 28, BUN/Creatinine Ratio 13, Glucose Level 222H, Calcium Level 9.5, Corrected Calcium 9.7, Total Bilirubin 0.6, Aspartate Amino Transf (AST/SGOT) 15, Alanine Aminotransferase (ALT/SGPT) 18, Alkaline Phosphatase 75, C-Reactive Protein High Sensitivity 13.83H, Total Protein 6.8, Albumin 3.7, Procalcitonin 3.16H 01/02/21 17:09: Glucometer 134H 01/02/21 21:45: Glucometer 139H 01/03/21 05:31: Glucometer 106 01/03/21 06:10: White Blood Count 11.2H, Red Blood Count 3.20L, Hemoglobin 9.9L, Hematocrit 32L, Mean Corpuscular Volume 98, Mean Corpuscular Hemoglobin 31, Mean Corpuscular Hemoglobin Concent 31L, Red Cell Distribution Width 15.3H, Platelet Count 284, Mean Platelet Volume 10.3, Immature Granulocyte % (Auto) 1, Neutrophils (%) (Au to) 75, Lymphocytes (%) (Auto) 12, Monocytes (%) (Auto) 9, Eosinophils (%) (Auto) 3, Basophils (%) (Auto) 0, Neutrophils # (Auto) 8.4H, Lymphocytes # (Auto) 1.3, Monocytes # (Auto) 1.0, Eosinophils # (Auto) 0.4H, Basophils # (Auto) 0.0, Immature Granulocyte # (Auto) 0.1, Sodium Level 137, Potassium Level 3.7, Chloride Level 107, Carbon Dioxide Level 21, Anion Gap 9, Blood Urea Nitrogen 21H, Creatinine 1.56H, Estimat Glomerular Filtration Rate 43, BUN/Creatinine Ratio 13, Glucose Level 105, Calcium Level 8.9 Assessment/Plan Assessment/Plan Assessment/Plan LLQ abdominal pain hematochezia sigmoid diverticulitis/diverticulosis atrial fibrillaiton long-term anticoagulation Patient still on clear liquid diet. Follow hemoglobin transfuse as needed. Continue ciprofloxacin and Flagyl 500 3 times daily. Patient will need outpatient colonoscopy if gets discharged before having 1. Would ideally do this in about 6 weeks. All questions answered. Patient with no other complaints. ITZEL SHELTON DO 01/03/21 1539: Subjective Subjective/Events-last exam States less abdominal pain today. Tolerating clears. Has not had blood in stools today. Hgb drop to 9.9. Denies n/v fever sweats chills shortness of breath or chest pain. Objective Exam General Appearance: No Apparent Distress, WD/WN HEENT: PERRL/EOMI, Normal ENT Inspection Neck: Normal Inspection, Non Tender, Supple Respiratory: Chest Non Tender, No Accessory Muscle Use, No Respiratory Distress Cardiovascular: Regular Rate, Rhythm, No JVD Gastrointestinal: soft; No distended; tenderness (llq lower, minimal) Extremity: Normal Inspection, Non Tender Neurologic/Psychiatric: Alert, Oriented x3, Normal Mood/Affect Skin: Normal Color, Warm/Dry Lymphatic: No Adenopathy Assessment/Plan Assessment/Plan Assessment/Plan LLQ abdominal pain hematochezia sigmoid diverticulitis/diverticulosis atrial fibrillaiton long-term anticoagulation Patient still on clear liquid diet. Follow hemoglobin transfuse as needed. Continue ciprofloxacin and Flagyl. Patient will need outpatient colonoscopy. Would ideally do this in about 6 weeks. All questions answered. Patient with no other complaints. If hgb stable and pain improved would advance diet tomorrow. Supervisory-Addendum Brief Verification & Attestation Participated in pt care: history, MDM, physical Personally performed: exam, history, MDM, supervision of care Care discussed with: Medical Student Procedures: n/a Results interpretation: Verified all documentation Verification and Attestation of Medical Student E/M Service A medical student performed and documented this service in my presence. I reviewed and verified all information documented by the medical student and made modifications to such information, when appropriate. I personally performed the physical exam and medical decision making. Itzel Shelton, Jan 03, 2021,15:39 ANNA GARCIA Jan 03, 2021 07:52 ITZEL SHELTON DO Jan 03, 2021 15:39
[2021-01-03 08:00] VITALS: BP 130/66
[2021-01-03] MEDS: LACTOBACILLUS ACIDOPHILUS (PROBIOTIC) CAPSULE PO SCH ×4 (08:49→21:57)
[2021-01-03] MEDS: metroNIDAZOLE 500MG/100ML IVPB 100 ML IV SCH ×2 (08:49→21:58)
[2021-01-03] MEDS: PANTOPRAZOLE 20 MG TABLET (PROTONIX) PO SCH (08:49)
[2021-01-03] MEDS: CIPROFLOXACIN 400 MG/D5W 200 ML (PRE-MIX) IV SCH ×2 (10:15→21:57)
[2021-01-03 11:00] VITALS: BP 134/72
[2021-01-03] MEDS ORDERED: DOCU50CA11 PO (14:03)
[2021-01-03] MEDS ORDERED: OMEP20TA7 PO (14:03)
[2021-01-03] MEDS ORDERED: DONE10TA41 PO (14:03)
[2021-01-03] MEDS ORDERED: LISI20TA26 PO (14:03)
[2021-01-03] MEDS ORDERED: CHOL20003 PO (14:03)
[2021-01-03] MEDS ORDERED: ATOR10TA66 PO (14:03)
[2021-01-03] MEDS ORDERED: ASPI-1238 PO (14:03)
[2021-01-03] MEDS ORDERED: CYAN25003 SL (14:03)
[2021-01-03] MEDS ORDERED: GLIP10TA13 PO (14:03)
[2021-01-03] MEDS ORDERED: SERT-414 PO (14:03)
[2021-01-03] MEDS ORDERED: RIVA20TA PO (14:03)
[2021-01-03 15:49] VITALS: BP 130/61
[2021-01-03] MEDS ORDERED: CIPROFLOXACIN 400 MG/D5W 200 ML (PRE-MIX) IV SCH (16:00)
--- NOTE | 2021-01-03 17:26 | History & Physical-Hospitalist ---
History of Present Illness HPI/Chief Complaint Roland aMrtin is an 85 year old male with PMH HTN, HLD, T2DM, GERD, BPH, who presented with bright red blood per rectum. He had also been having abdominal pain. He also reports nausea and vomiting a few days ago. He denies shortness of breath and cough. He denies chest pain. He denies fevers and chills. He has no history of diverticulitis. Source: patient Exam Limitations: no limitations Date Seen 01/03/21 Time Seen by a Provider: 11:00 Attending Physician Augustine Silverman MD PCP No,Local Physician Referring Physician Date of Admission Jan 02, 2021 at 15:54 Home Medications & Allergies Home Medications Reviewed patient Home Medication Reconciliation performed by pharmacy medication reconciliations integrated pest management technician and/or nursing. Patients Allergies have been reviewed. Allergies Allergies Coded Allergies No Known Drug Allergies (Unverified01/07/19) Past Togvbqm-Wekoou-Owsmwv Hx Patient Social History Tobacco Use?: Yes Smoking Status: Former Smoker Smokeless Tobacco Frequency: Never a User Substance use?: No Alcohol Use?: Yes Alcohol type: Beer, Wine Alcohol Frequency: Once in a while Pt feels they are or have been: No Immunizations Up To Date Date of Influenza Vaccine: Mar 16, 2020 First/Initial COVID19 Vaccinat: 09/2020 Second COVID19 Vaccination Andrew: 10/2020 Date of Pneumonia Vaccine: Feb 12, 2019 Seasonal Allergies Seasonal Allergies: No Current Status Advance Directives: No Communicates: Verbally Primary Language: Gibraltarian Preferred Spoken Language: Gibraltarian Is interpretation needed?: No Sensory deficits: Vision impairment Implanted or Applied Medical D: None Past Medical History Surgeries: Orthopedic Atrial Fibrillation Prostate Problems Diabetes, Non-Insulin dep Cataract Loss of Vision: Denies Hearing Impairment: Hard of Hearing, Hearing Aide Right, Hearing Aide Left Psoriasis Blood Disorders: No Family Medical History CANCER 19 MOTHER No Pertinent Family Hx Review of Systems Constitutional: no symptoms reported EENTM: no symptoms reported Respiratory: no symptoms reported Cardiovascular: no symptoms reported Gastrointestinal: diarrhea, nausea, vomiting, other (hematochezia) Genitourinary: no symptoms reported Musculoskeletal: no symptoms reported Skin: no symptoms reported Psychiatric/Neurological: No Symptoms Reported Physical Exam Physical Exam Vital Signs Vital Signs - First Documented 01/02/21 01/02/21 01/02/21 13:45 16:31 16:53 Temp 36.9 Pulse 75 Resp 16 B/P (MAP) 94/49 (64) Pulse Ox 96 O2 Delivery Room Air FiO2 21 Capillary Refill : Less Than 3 Seconds Height, Weight, BMI Height: '" Weight: 165lbs. 0.0oz. 74.037837ms; 23.00 BMI Method: General Appearance: No Apparent Distress, WD/WN HEENT: PERRL/EOMI, Pharynx Normal Neck: Normal Inspection, Supple Respiratory: Lungs Clear, Normal Breath Sounds, No Respiratory Distress Cardiovascular: Regular Rate, Rhythm, No Edema, No Murmur Gastrointestinal: Normal Bowel Sounds, Non Tender, Soft Extremity: Normal Inspection, Non Tender, No Pedal Edema Neurologic/Psychiatric: Alert, Oriented x3, No Motor/Sensory Deficits, Normal Mood/Affect Skin: Normal Color, Warm/Dry Results Results/Procedures Labs Laboratory Tests 01/02/21 14:24 01/03/21 06:10 Patient resulted labs reviewed. Imaging: Reviewed Imaging Report Assessment/Plan Admission Diagnosis Diverticulitis Admission Status: Inpatient Order (span 2 midnights) Reason for Inpatient Admission: IV antibiotics and fluids Hemoglobin monitoring Assessment and Plan Diverticulitis of colon with hemorrhage CT revealed diverticulitis Hemoglobin stable, mild anemia Started on Cipro and Flagyl Monitor H&H Clear liquid diet Surgery consulted, appreciate assistance RANDY on CKD Creatinine 2.2 on arrival, improved to 1.5 IV fluids AFib Anticoagulated Hold anticoagulation T2DM Hold home meds Sliding scale insulin HTN HLD BPH Dementia Continue home meds Hold Lisinopril due to RANDY DVT prophylaxis: SCDs, no pharmacologic prophylaxis due to GI bleeding Diagnosis/Problems Diagnosis/Problems (1) Diverticulitis of colon with bleeding Status: Acute (2) Acute kidney injury superimposed on chronic kidney disease Status: Acute (3) Afib Status: Chronic Qualifiers: Atrial fibrillation type: paroxysmal Qualified Codes: I48.0 - Paroxysmal atrial fibrillation (4) Anticoagulated Status: Chronic AUGUSTINE SILVERMAN MD Jan 03, 2021 17:26
[2021-01-03] MEDS ORDERED: TAMSULOSIN 0.4 MG (FLOMAX) CAP PO SCH (18:00)
[2021-01-03] MEDS ORDERED: ALFUZOSIN HCL 10 MG TAB (UROXATRAL) PO SCH (18:00)
[2021-01-03 20:00] VITALS: BP 135/63
[2021-01-03] MEDS ORDERED: DONEPEZIL 10 MG (ARICEPT) TAB PO SCH (21:00)
[2021-01-04 00:14] VITALS: BP 127/70
[2021-01-04 04:38] VITALS: BP 128/66
[2021-01-04] MEDS: inSUlin ASPART (NovoLOG) 1 UNIT/0.01 ML (CHARGE PER UNIT) SC SCH ×2 (05:31→11:35)
[2021-01-04 06:22] LABS: BASOPHILS # (AUTO) 0.1 10^3/uL (0.0-0.1); BASOPHILS % (AUTO) 1 % (0-10); EOSINOPHILS # (AUTO) 0.4 10^3/uL (0.0-0.3); EOSINOPHILS % (AUTO) 5 % (0-10); HEMATOCRIT 31 % (40-54); HEMOGLOBIN 9.7 g/dL (13.3-17.7); LYMPHOCYTES # (AUTO) 1.1 10^3/uL (1.0-4.0); LYMPHOCYTES % (AUTO) 13 % (12-44); MEAN CORPUSCULAR HEMOGLOBIN 31 pg (25-34); MEAN CORPUSCULAR HGB CONC 32 g/dL (32-36); MEAN CORPUSCULAR VOLUME 98 fL (80-99); MEAN PLATELET VOLUME 10.1 fL (9.0-12.2); MONOCYTES # (AUTO) 0.8 10^3/uL (0.0-1.0); MONOCYTES % (AUTO) 10 % (0-12); NEUTROPHILS # (AUTO) 6.2 10^3/uL (1.8-7.8); NEUTROPHILS % (AUTO) 71 % (42-75); PLATELET COUNT 312 10^3/uL (130-400); WHITE BLOOD COUNT 8.6 10^3/uL (4.3-11.0)
[2021-01-04 06:42] LABS: POTASSIUM 3.9 MMOL/L (3.6-5.0)
[2021-01-04 06:44] LABS: CALCIUM 9.1 MG/DL (8.5-10.1)
[2021-01-04 06:48] LABS: CREATININE SERUM 1.25 MG/DL (0.60-1.30)
--- NOTE | 2021-01-04 07:53 | Progress Note - Surgery ---
ANNA GARCIA 01/04/21 0752: Subjective Date Seen by a Provider: Jan 04, 2021 Time Seen by a Provider: 07:15 Subjective/Events-last exam Patient reports feeling well this morning. He has not had any abdominal pain and is tolerating clear liquids well. He has not had a bowel movement but is passing gas frequently. He reports no sweats/chills, no nausea/vomiting. Objective Exam Vital Signs Date Time Temp Pulse Resp B/P (MAP) Pulse Ox O2 Delivery O2 Flow Rate FiO2 01/04/21 04:38 36.6 57 16 128/66 (86) 96 Room Air 01/04/21 00:14 36.7 57 18 127/70 (89) 95 Room Air 01/03/21 20:00 Room Air 01/03/21 20:00 36.9 61 18 135/63 (87) 99 Room Air 01/03/21 18:58 98 Room Air 21 01/03/21 15:49 36.4 58 18 130/61 (84) 97 Room Air 01/03/21 11:00 36.8 57 24 134/72 (92) 96 Room Air 01/03/21 08:00 36.4 57 20 130/66 (87) 96 Room Air 01/03/21 08:00 Room Air I & O 01/04/21 07:00 Intake Total 1750 ml Output Total 1150 ml Balance 600 ml Capillary Refill : Less Than 3 Seconds General Appearance: No Apparent Distress, WD/WN HEENT: PERRL/EOMI Neck: Normal Inspection, Supple Respiratory: Lungs Clear, Normal Breath Sounds, No Accessory Muscle Use, No Respiratory Distress Cardiovascular: Regular Rate, Rhythm, No Edema Gastrointestinal: normal bowel sounds, non tender, soft; No distended Extremity: Normal Inspection, Non Tender Neurologic/Psychiatric: Alert, Oriented x3, Normal Mood/Affect Skin: Normal Color, Warm/Dry Results Lab Laboratory Tests 01/03/21 11:35: Glucometer 189H 01/03/21 15:52: Glucometer 128H 01/03/21 21:03: Glucometer 104 01/04/21 05:30: Glucometer 110 01/04/21 05:31: White Blood Count 8.6, Red Blood Count 3.11L, Hemoglobin 9.7L, Hematocrit 31L, Mean Corpuscular Volume 98, Mean Corpuscular Hemoglobin 31, Mean Corpuscular Hemoglobin Concent 32, Red Cell Distribution Width 15.0H, Platelet Count 312, Mean Platelet Volume 10.1, Immature Granulocyte % (Auto) 1, Neutrophils (%) (Auto) 71, Lymphocytes (%) (Auto) 13, Monocytes (%) (Auto) 10, Eosinophils (%) (Auto) 5, Basophils (%) (Auto) 1, Neutrophils # (Auto) 6.2, Lymphocytes # (Auto) 1.1, Monocytes # (Auto) 0.8, Eosinophils # (Auto) 0.4H, Basophils # (Auto) 0.1, Immature Granulocyte # (Auto) 0.0, Sodium Level 140, Potassium Level 3.9, Chloride Level 109H, Carbon Dioxide Level 21, Anion Gap 10, Blood Urea Nitrogen 13, Creatinine 1.25, Estimat Glomerular Filtration Rate 55, BUN/Creatinine Ratio 10, Glucose Level 108H, Calcium Level 9.1 Assessment/Plan Assessment/Plan Assessment/Plan LLQ abdominal pain hematochezia sigmoid diverticulitis/diverticulosis atrial fibrillaiton long-term anticoagulation Patient tolerating clears without issue and hemoglobin is stable, we will advance diet today. Continue ciprofloxacin and Flagyl. Patient will need outpatient colonoscopy. Would ideally do this in about 6 weeks. All questions answered. Patient with no other complaints. ITZEL SHELTON DO 01/04/21 1201: Subjective Subjective/Events-last exam Feeling well, not having any abdominal pain. No more blood from rectum. Tolerating liquids. Hgb stable. WBC down.Denies n/v fever sweats chills shortness of breath or chest pain. Objective Exam General Appearance: No Apparent Distress, WD/WN HEENT: PERRL/EOMI Neck: Normal Inspection, Supple Respiratory: Chest Non Tender, No Accessory Muscle Use, No Respiratory Distress Cardiovascular: Regular Rate, Rhythm, No JVD Gastrointestinal: non tender, soft; No distended Extremity: Normal Inspection Neurologic/Psychiatric: Alert, Oriented x3, Normal Mood/Affect Skin: Normal Color, Warm/Dry Lymphatic: No Adenopathy Assessment/Plan Assessment/Plan Assessment/Plan LLQ abdominal pain hematochezia sigmoid diverticulitis/diverticulosis atrial fibrillaiton long-term anticoagulation Patient tolerating clears without issue and hemoglobin is stable, we will advance diet today. Continue ciprofloxacin and Flagyl. Patient will need outpatient colonoscopy. Would ideally do this in about 6 weeks. All questions answered. Patient with no other complaints Supervisory-Addendum Brief Verification & Attestation Participated in pt care: history, MDM, physical Personally performed: exam, history, MDM, supervision of care Care discussed with: Medical Student Procedures: n/a Results interpretation: Verified all documentation Verification and Attestation of Medical Student E/M Service A medical student performed and documented this service in my presence. I reviewed and verified all information documented by the medical student and made modifications to such information, when appropriate. I personally performed the physical exam and medical decision making. Itzel Shelton, Jan 04, 2021,12:01 ANNA GARCIA Jan 04, 2021 07:52 ITZEL SHELTON DO Jan 04, 2021 12:01
[2021-01-04 08:00] VITALS: BP 124/59
[2021-01-04] MEDS ORDERED: SERTRALINE 100 MG (ZOLOFT) TAB PO SCH (09:00)
[2021-01-04] MEDS ORDERED: AtorvaSTATin TABLET 10 MG TABLET PO SCH (09:00)
[2021-01-04] MEDS ORDERED: FINASTERIDE (PROSCAR) 5 MG TAB PO SCH (09:00)
[2021-01-04] MEDS: NS IV 1000 ML 1,000 ML IV SCH (09:00)
[2021-01-04] MEDS: metroNIDAZOLE 500MG/100ML IVPB 100 ML IV SCH (09:16)
[2021-01-04] MEDS: LACTOBACILLUS ACIDOPHILUS (PROBIOTIC) CAPSULE PO SCH ×2 (09:17→12:59)
[2021-01-04] MEDS: PANTOPRAZOLE 20 MG TABLET (PROTONIX) PO SCH (09:17)
[2021-01-04] MEDS: CIPROFLOXACIN 400 MG/D5W 200 ML (PRE-MIX) IV SCH (10:50)
[2021-01-04] MEDS ORDERED: METR500T PO (10:58)
[2021-01-04] MEDS ORDERED: CIPR500T5 PO (10:58)
[2021-01-04 12:00] VITALS: BP 144/77
--- NOTE | 2021-01-04 12:44 | Discharge Summary ---
Discharge Summary Hospital Course Was the Problem List Reviewed?: Yes Problems/Dx: (1) Diverticulitis of colon with bleeding Status: Acute (2) Acute kidney injury superimposed on chronic kidney disease Status: Acute (3) Afib Status: Chronic Qualifiers: Qualified Codes: I48.0 - Paroxysmal atrial fibrillation (4) Anticoagulated Status: Chronic Hospital Course Date of Admission: Jan 02, 2021 at 15:54 Admission Diagnosis : Diverticulitis Family Physician/Provider: Lisa Mcmanus Date of Discharge: 01/04/21 Discharge Diagnosis: Diverticulitis Hospital Course: Roland Martin is an 85 year old male who was admitted with diverticulitis with bleeding. He was started on IV antibiotics and improved rapidly. His course was complicated by dehydration with an acute kidney injury superimposed on chronic kidney disease. Surgery was consulted and assisted with his care. He will complete a course of ciprofloxacin and Flagyl as an outpatient. He should follow-up with surgery in a few weeks for an outpatient colonoscopy. He should follow-up with his primary care physician. He was discharged home in stable condition. Labs and Pending Lab Test: Laboratory Tests 01/03/21 15:52: Glucometer 128H 01/03/21 21:03: Glucometer 104 01/04/21 05:30: Glucometer 110 01/04/21 05:31: White Blood Count 8.6, Red Blood Count 3.11L, Hemoglobin 9.7L, Hematocrit 31L, Mean Corpuscular Volume 98, Mean Corpuscular Hemoglobin 31, Mean Corpuscular Hemoglobin Concent 32, Red Cell Distribution Width 15.0H, Platelet Count 312, Mean Platelet Volume 10.1, Immature Granulocyte % (Auto) 1, Neutrophils (%) (Auto) 71, Lymphocytes (%) (Auto) 13, Monocytes (%) (Auto) 10, Eosinophils (%) (Auto) 5, Basophils (%) (Auto) 1, Neutrophils # (Auto) 6.2, Lymphocytes # (Auto) 1.1, Monocytes # (Auto) 0.8, Eosinophils # (Auto) 0.4H, Basophils # (Auto) 0.1, Immature Granulocyte # (Auto) 0.0, Sodium Level 140, Potassium Level 3.9, Chloride Level 109H, Carbon Dioxide Level 21, Anion Gap 10, Blood Urea Nitrogen 13, Creatinine 1.25, Estimat Glomerular Filtration Rate 55, BUN/Creatinine Ratio 10, Glucose Level 108H, Calcium Level 9.1 01/04/21 11:25: Glucometer 141H Home Meds Active Flagyl (Metronidazole) 500 Mg Tablet 500 Mg PO TID 10 Days Ciprofloxacin HCl 500 Mg Tablet 500 Mg PO BID 10 Days Reported Colace Clear (Docusate Sodium) 50 Mg Capsule 50 Mg PO 1800 Aspirin EC (Aspirin) 81 Mg Tablet.dr 81 Mg PO 1800 Vitamin D3 (Cholecalciferol (Vitamin D3)) 50 Mcg Capsule 50 Mcg PO DAILY Vitamin B-12 (Cyanocobalamin (Vitamin B-12)) 2,500 Mcg Tab.subl 2,500 Mcg SL DAILY Omeprazole 20 Mg Tablet.dr 20 Mg PO DAILY Xarelto (Rivaroxaban) 20 Mg Tablet 20 Mg PO 1800 Lisinopril 20 Mg Tablet 20 Mg PO 1800 Sertraline HCl 100 Mg Tablet 100 Mg PO DAILY Atorvastatin Calcium 10 Mg Tablet 10 Mg PO DAILY Glipizide 10 Mg Tablet 10 Mg PO 1800 Donepezil HCl 10 Mg Tablet 10 Mg PO HS Methotrexate (Methotrexate Sodium) 2.5 Mg Tablet 10 Mg PO SUN TAKES 4 (2.5MG) TABS Folic Acid 0.4 Mg Tablet 1.2 Mg PO SUMOTUTHFRSA TAKES 3 (0.4MG) TABLETS Alfuzosin HCl ER (Alfuzosin HCl) 10 Mg Tab.er.24h 10 Mg PO 1800 Finasteride 5 Mg Tablet 5 Mg PO DAILY Glipizide 5 Mg Tablet 5 Mg PO DAILY Assessment/Pt Instructions Take medications as prescribed. Follow-up with your primary care physician. Return with worsening bleeding, pain, or if you feel like you are getting worse. Complete your course of antibiotics even if you feel like you are getting better. Discharge Planning: <30 minutes discharge planning Discharge Instructions Discharge Diet: No Restrictions Activity as Tolerated: Yes Discharge Physical Examination Vital Signs Vital Signs Date Time Temp Pulse Resp B/P (MAP) Pulse Ox O2 Delivery O2 Flow Rate FiO2 01/04/21 12:00 36.1 56 20 144/77 (99) 98 Room Air 01/03/21 18:58 21 General Appearance: No Apparent Distress, WD/WN Respiratory: Lungs Clear, Normal Breath Sounds, No Respiratory Distress Cardiovascular: Regular Rate, Rhythm, No Edema, No Murmur Gastrointestinal: Normal Bowel Sounds, Non Tender, Soft Extremity: Normal Inspection, Non Tender, No Pedal Edema Skin: Normal Color, Warm/Dry Neurologic/Psychiatric: Alert, Oriented x3, No Motor/Sensory Deficits, Normal Mood/Affect Allergies: Coded Allergies: No Known Drug Allergies (Unverified , 01/07/19) Discharge Summary Date of Admission Jan 02, 2021 at 15:54 Date of Discharge Discharge Date: Jan 04, 2021 Discharge Time: 12:44 Admission Diagnosis Diverticulitis Consults/Procedures Consulations Surgery Discharge Diagnosis Diverticulitis of colon with hemorrhage (1) Diverticulitis of colon with bleeding Status: Acute (2) Acute kidney injury superimposed on chronic kidney disease Status: Acute (3) Afib Status: Chronic Qualifiers: Qualified Codes: I48.0 - Paroxysmal atrial fibrillation (4) Anticoagulated Status: Chronic AUGUSTINE SILVERMAN MD Jan 04, 2021 12:44
[2021-01-04 13:16] VITALS: BP 144/77
== END 2021-01-04 13:40 | disposition home or self-care (01) | DRG 378 ==
LOC: EDUNIT# 13:07 → ER 13:09 → 4TH 15:54
PROVIDERS: ADMIT Internal Medicine; ATTEND Internal Medicine
DX: K57.33 Diverticulitis of large intestine without perforation or abscess with bleeding (principal); N17.9 Acute kidney failure, unspecified; I12.9 Hypertensive chronic kidney disease with stage 1 through stage 4 chronic kidney disease, or unspecified chronic kidney disease; N18.9 Chronic kidney disease, unspecified; I48.0 Paroxysmal atrial fibrillation; E78.5 Hyperlipidemia, unspecified; E11.9 Type 2 diabetes mellitus without complications; K21.9 Gastro-esophageal reflux disease without esophagitis; N40.0 Benign prostatic hyperplasia without lower urinary tract symptoms; H54.7 Unspecified visual loss; H91.90 Unspecified hearing loss, unspecified ear; F03.90 Unspecified dementia, unspecified severity, without behavioral disturbance, psychotic disturbance, mood disturbance, and anxiety; Z79.899 Other long term (current) drug therapy; Z79.84 Long term (current) use of oral hypoglycemic drugs; Z87.891 Personal history of nicotine dependence; Z97.4 Presence of external hearing-aid; Z79.01 Long term (current) use of anticoagulants; Z79.82 Long term (current) use of aspirin
CPT/HCPCS: 36415; 74176; 80048; 80053; 82947; 84145; 85007; 85025; 85027; 85610; 86141; 93005

== ENCOUNTER 2021-02-14 06:19 | Outpatient (CLI) | payer MEDICARE ==
[~2021-02-14] VITALS: Ht 180.3 cm; Wt 164.7 kg
[~2021-02-14 06:19] MED LIST changes: +ATOR10TA66 PO; +CHOL20003 PO; +CIPR500T5 PO; +CYAN25003 SL; +DOCU50CA11 PO; +DONE10TA41 PO; +GLIP10TA13 PO; +LISI20TA26 PO; +METR500T PO; +OMEP20TA7 PO; +RIVA20TA PO; +SERT-414 PO
[2021-02-14] MEDS ORDERED: TMSL.4C PO (14:09)
[2021-02-14] MEDS ORDERED: ATOR10TA66 PO (14:09)
== END 2021-02-14 15:27 | disposition home or self-care (01) ==
LOC: PREOP 06:19
PROVIDERS: ATTEND Surgery
DX: Z01.818 Encounter for other preprocedural examination (principal)

== ENCOUNTER 2021-02-21 11:17 | Day surgery (SDC) | payer MEDICARE ==
[~2021-02-21] VITALS: Ht 180.3 cm; Wt 164.7 kg
[~2021-02-21 11:17] MED LIST changes: +TMSL.4C PO
[2021-02-21] MEDS ORDERED: LACTATED RINGERS 1,000 ML IV ONE (11:38)
[2021-02-21] MEDS ORDERED: LACTATED RINGERS 1,000 ML IV STA (11:39)
--- NOTE | 2021-02-21 11:46 | Progress Note-Pre Operative ---
Pre-Operative Progress Note H&P Reviewed The H&P was reviewed, patient examined and no changes noted. Date Seen by Provider: Feb 21, 2021 Time Seen by Provider: 11:46 Date H&P Reviewed: Feb 21, 2021 Time H&P Reviewed: 11:46 Pre-Operative Diagnosis: history of diverticulitis ITZEL MOMIN DO Feb 21, 2021 11:46
[2021-02-21 11:53] VITALS: BP 111/67
[2021-02-21] MEDS ORDERED: PROPOFOL INJECTION 50 ML IV ONE (12:12)
[2021-02-21 13:35] VITALS: BP 151/76
[2021-02-21 13:40] VITALS: BP 144/74
[2021-02-21 13:45] VITALS: BP 126/59
--- NOTE | 2021-02-21 13:45 | Progress Note-Post Operative ---
Post-Operative Progess Note Surgeon (s)/Ceramic Coater Machine (s) Surgeon ITZEL MOMIN DO Ceramic Coater Machine: na Pre-Operative Diagnosis history of diverticulitis Post-Operative Diagnosis diverticulosis, incomplete colonoscopy Procedure & Operative Findings Date of Procedure 02/21/21 Procedure Performed/Findings flexible sigmoidoscopy Anesthesia Type per checker in Estimated Blood Loss Estimated blood loss (mL): none Specimens/Packing Specimens Removed na ITZEL MOMIN DO Feb 21, 2021 13:45
--- NOTE | 2021-02-21 13:47 | Discharge Inst-Simple/Standard ---
Discharge Inst-Standard Patient Instructions/Follow Up Plan of Care/Instructions/FU: Ct scan with rectal contrast tomorrow to evaluate rest of colon. Dr. Shelton 2 weeks. Activity as Tolerated: Yes Discharge Diet: Liquid Diet ( until after ct scan) ITZEL SHELTON DO Feb 21, 2021 13:47
[2021-02-21 13:50] VITALS: BP 126/59
[2021-02-21 14:16] VITALS: BP 125/62
--- NOTE | 2021-02-21 20:13 | OPERATIVE REPORT ---
DATE OF SERVICE: 02/21/2021 PREOPERATIVE DIAGNOSIS: History of diverticulitis. POSTOPERATIVE DIAGNOSES: Diverticulosis and complete colonoscopy. PROCEDURE PERFORMED: Flexible sigmoidoscopy. SURGEON: Itzel Shelton DO ANESTHESIA: Per CERTIFIED RESPIRATORY THERAPIST. ESTIMATED BLOOD LOSS: None. COMPLICATIONS: None. INDICATIONS FOR PROCEDURE: The patient is an 85-year-old male with history of colon diverticulitis. He understands the risks and benefits for further evaluation with colonoscopy. Consent was signed in the chart. DESCRIPTION OF PROCEDURE: The patient was taken to the endoscopy suite and placed in a left lateral recumbent position. A timeout was performed. A digital rectal exam was performed. There were no palpable polyps, masses or ulcerations. Scope was inserted in the rectum and advanced through the rectum into the sigmoid colon. Significant diverticulosis was present. The scope was then continued to be manipulated through the diverticulosis. It came to a point where the scope could no longer be advanced safely. Therefore, the scope was then slowly retracted back. No polyps, masses or ulcerations within the sigmoid colon at the portion that was visualized. Scope was then continuously and slowly retracted back into the rectum, where scope was also retroflexed noting no other pathology. Scope was returned to its normal position, slowly withdrawn until completely removed. The patient tolerated the procedure well without any complications and taken to the recovery room in stable condition. RECOMMENDATIONS: The patient will go for a CT scan with rectal contrast tomorrow to evaluate the rest of the colon. Stay on clear liquids until this has been done. The patient will follow up in the office in two weeks. Job ID: [id number] DocumentID: [id number] Dictated Date: 02/21/2021 13:49:37 Automobile Upholsterer Date: 02/21/2021 20:12:20 Dictated By: ITZEL SHELTON DO
--- NOTE | 2021-02-22 10:01 | Anesthesia-General Post-Op ---
MAC Patient Condition Mental Status/LOC: Same as Preop Cardiovascular: Satisfactory Nausea/Vomiting: Absent Respiratory: Satisfactory Pain: Controlled Complications: Absent Post Op Complications Complications None Follow Up Care/Instructions Patient Instructions None needed. Anesthesiology Discharge Order Discharge Order Patient is doing well, no complaints, stable vital signs, no apparent adverse anesthesia problems. No complications reported per nursing. MALATHI HAWKINS CRNA Feb 22, 2021 10:01
== END 2021-02-21 14:20 | disposition home or self-care (01) ==
LOC: ENDO 11:17
PROVIDERS: ATTEND Surgery
DX: K57.30 Diverticulosis of large intestine without perforation or abscess without bleeding (principal); J44.9 Chronic obstructive pulmonary disease, unspecified; E11.9 Type 2 diabetes mellitus without complications; I48.91 Unspecified atrial fibrillation; E78.00 Pure hypercholesterolemia, unspecified; E78.5 Hyperlipidemia, unspecified; F32.A Depression, unspecified; Z79.84 Long term (current) use of oral hypoglycemic drugs; Z79.82 Long term (current) use of aspirin; Z87.891 Personal history of nicotine dependence; Z79.899 Other long term (current) drug therapy; Z87.19 Personal history of other diseases of the digestive system; Z79.01 Long term (current) use of anticoagulants
CPT/HCPCS: 82947

== ENCOUNTER → 2021-02-23 | Outpatient (CLI) | payer MEDICARE ==
[~2021-02-23] MED LIST changes: +DIATRIZOATE MEGLUM/SODIUM 37% 120 ML (GASTROGRAFIN) PO ONE
--- NOTE | 2021-02-23 10:12 | Diagnostic Imaging Report ---
PROCEDURE: CT abdomen and pelvis without contrast. TECHNIQUE: Multiple contiguous axial images were obtained through the abdomen and pelvis without the use of intravenous contrast. Auto Exposure Controls were utilized during the CT exam to meet ALARA standards for radiation dose reduction. INDICATION: Weight loss and incomplete colonoscopy. Correlation is made with prior CT from 01/02/2021. Basilar interstitial changes are noted particularly right lower lobe, however, this does appear improved since exam from December. There is a moderate-sized hiatal hernia. The liver and gallbladder are unremarkable. No biliary duct dilatation is seen. There is moderate amount of fatty atrophy involving the pancreatic body and tail. Spleen is unremarkable. No adrenal mass is identified. No renal calculi or hydronephrosis is detected. Aorta is partially calcified but nonaneurysmal. There is a stent in the left common iliac artery. Rectal contrast was administered for this study. There was complete filling of the colon. No definite discrete mass or annular constricting lesion is identified. There is diverticulosis of the sigmoid but no evidence of acute diverticulitis. No free fluid or fluid collection is identified. Bladder is decompressed. Prostate is enlarged. Bony structures are nonacute. IMPRESSION: 1. Moderate-sized hiatal hernia. 2. Uncomplicated diverticulosis. 3. Prostatomegaly. Dictated by: Dictated on workstation # [id number]
== END ==
LOC: RAD 08:55
PROVIDERS: ATTEND Surgery
DX: N40.0 Benign prostatic hyperplasia without lower urinary tract symptoms (principal); K44.9 Diaphragmatic hernia without obstruction or gangrene; K57.30 Diverticulosis of large intestine without perforation or abscess without bleeding; K56.609 Unspecified intestinal obstruction, unspecified as to partial versus complete obstruction; R63.4 Abnormal weight loss
CPT/HCPCS: 74176

== ENCOUNTER → 2021-06-27 | Outpatient (CLI) | payer MEDICARE ==
[~2021-06-27] MED LIST changes: -AMIO200T6 PO; +AMIO200T65 PO; -DIATRIZOATE MEGLUM/SODIUM 37% 120 ML (GASTROGRAFIN) PO ONE; -LISI-729 PO; +LISI5TAB20 PO
[2021-06-27 12:49] LABS: BASOPHILS # (AUTO) 0.1 10^3/uL (0.0-0.1); BASOPHILS % (AUTO) 1 % (0-10); EOSINOPHILS # (AUTO) 0.5 10^3/uL (0.0-0.3); EOSINOPHILS % (AUTO) 8 % (0-10); HEMATOCRIT 38 % (40-54); HEMOGLOBIN 12.3 g/dL (13.3-17.7); LYMPHOCYTES # (AUTO) 1.2 10^3/uL (1.0-4.0); LYMPHOCYTES % (AUTO) 19 % (12-44); MEAN CORPUSCULAR HEMOGLOBIN 31 pg (25-34); MEAN CORPUSCULAR HGB CONC 32 g/dL (32-36); MEAN CORPUSCULAR VOLUME 97 fL (80-99); MONOCYTES # (AUTO) 0.8 10^3/uL (0.0-1.0); MONOCYTES % (AUTO) 12 % (0-12); NEUTROPHILS # (AUTO) 3.8 10^3/uL (1.8-7.8); NEUTROPHILS % (AUTO) 60 % (42-75); PLATELET COUNT 213 10^3/uL (130-400); WHITE BLOOD COUNT 6.4 10^3/uL (4.3-11.0)
[2021-06-27 13:00] LABS: POTASSIUM 4.3 MMOL/L (3.6-5.0)
[2021-06-27 13:02] LABS: TOTAL PROTEIN 7.2 GM/DL (6.4-8.2)
[2021-06-27 13:04] LABS: BILIRUBIN,TOTAL 0.4 MG/DL (0.1-1.0)
[2021-06-27 13:06] LABS: CREATININE SERUM 1.37 MG/DL (0.60-1.30)
== END ==
LOC: LAB 12:24
PROVIDERS: ATTEND Nurse Practitioner Family
DX: L40.0 Psoriasis vulgaris (principal)
CPT/HCPCS: 36415; 80053; 82746; 85025

== ENCOUNTER → 2021-07-17 | Outpatient (CLI) | payer MEDICARE ==
[2021-07-17 14:41] LABS: ALBUMIN 3.5 GM/DL (3.2-4.5); BILIRUBIN,TOTAL 0.4 MG/DL (0.1-1.0); CALCIUM 8.6 MG/DL (8.5-10.1); CREATININE SERUM 1.54 MG/DL (0.60-1.30); POTASSIUM 4.4 MMOL/L (3.6-5.0); TOTAL PROTEIN 6.4 GM/DL (6.4-8.2)
== END ==
LOC: LAB 13:50
PROVIDERS: ATTEND Internal Medicine Cardiovascular Disease
DX: E78.2 Mixed hyperlipidemia (principal); I48.0 Paroxysmal atrial fibrillation; I11.9 Hypertensive heart disease without heart failure; I34.0 Nonrheumatic mitral (valve) insufficiency
CPT/HCPCS: 36415; 80053; 80061

== ENCOUNTER → 2021-08-31 | Outpatient (CLI) | payer MEDICARE ==
[~2021-08-31] MED LIST changes: +OMEP20TA56 PO; -OMEP20TA7 PO
[2021-08-31 15:24] LABS: HEMATOCRIT 36 % (40-54); HEMOGLOBIN 11.6 g/dL (13.3-17.7); MEAN CORPUSCULAR HEMOGLOBIN 32 pg (25-34); MEAN CORPUSCULAR HGB CONC 33 g/dL (32-36); MEAN CORPUSCULAR VOLUME 97 fL (80-99); MEAN PLATELET VOLUME 10.7 fL (9.0-12.2); PLATELET COUNT 200 10^3/uL (130-400); WHITE BLOOD COUNT 6.1 10^3/uL (4.3-11.0)
[2021-08-31 15:25] LABS: ALBUMIN 4.1 GM/DL (3.2-4.5); BILIRUBIN,TOTAL 0.5 MG/DL (0.1-1.0); CALCIUM 9.2 MG/DL (8.5-10.1); CREATININE SERUM 1.3 MG/DL (0.60-1.30); POTASSIUM 4.3 MMOL/L (3.6-5.0); TOTAL PROTEIN 6.8 GM/DL (6.4-8.2)
== END ==
LOC: LAB FS 14:03
PROVIDERS: ATTEND Nurse Practitioner Family
DX: Z12.5 Encounter for screening for malignant neoplasm of prostate (principal); E11.9 Type 2 diabetes mellitus without complications; I10 Essential (primary) hypertension
CPT/HCPCS: 36415; 80053; 83036; 85027; G0103; 84153

== ENCOUNTER → 2021-12-18 | Outpatient (CLI) | payer MEDICARE ==
--- NOTE | 2021-12-18 11:39 | Diagnostic Imaging Report ---
INDICATION: Right knee pain. FINDINGS: 3 views. No fractures. There are some hypertrophic changes noted along the femoral condyle both medially and laterally. There is narrowing of the medial joint space. No fractures are seen. The patellofemoral joint is in good alignment. No chondrocalcinosis or loose bodies. IMPRESSION: Moderate arthritic changes noted most prominently in the medial compartment. Dictated by: Dictated on workstation # [id number]
== END ==
LOC: RAD FS 08:34
PROVIDERS: ATTEND Nurse Practitioner
DX: M17.11 Unilateral primary osteoarthritis, right knee (principal)
CPT/HCPCS: 73562

== ENCOUNTER → 2021-12-28 | Outpatient (CLI) | payer MEDICARE ==
[2021-12-28 13:35] LABS: POTASSIUM 4.5 MMOL/L (3.6-5.0)
[2021-12-28 13:36] LABS: ALBUMIN 4.2 GM/DL (3.2-4.5); BILIRUBIN,TOTAL 0.7 MG/DL (0.1-1.0); CALCIUM 9.3 MG/DL (8.5-10.1); CREATININE SERUM 1.25 MG/DL (0.60-1.30)
== END ==
LOC: LAB FS 12:42
PROVIDERS: ATTEND Internal Medicine Cardiovascular Disease
DX: I11.9 Hypertensive heart disease without heart failure (principal); E78.2 Mixed hyperlipidemia; I34.0 Nonrheumatic mitral (valve) insufficiency; I48.0 Paroxysmal atrial fibrillation; I65.23 Occlusion and stenosis of bilateral carotid arteries
CPT/HCPCS: 36415; 80053; 80061; 93306

== ENCOUNTER → 2022-01-22 | Outpatient (CLI) | payer MEDICARE ==
[~2022-01-22] MED LIST changes: +CATHETER FLUSH 10 ML SYR IVP PRN; +REGADENOSON 0.4 MG/5 ML SYR (LEXISCAN) IV ONE
[2022-01-22 09:02] VITALS: BP 145/79
--- NOTE | 2022-01-22 11:12 | Cardiology Stress Test Report ---
Stress Test Report Date of Procedure/Referring: Date of Procedure: Jan 22, 2022 PCP Jemma Phipps Aprn Admitting Physician Admitting Physician: Attending Physician: Katty Fonseca MD Indications: PAF Baseline Heart Rate: 47 Baseline Blood Pressure: Blood Pressure Systolic: 145 Blood Pressure Diastolic: 79 Baseline Vitals Vital Signs Date Time Temp Pulse Resp B/P (MAP) Pulse Ox O2 Delivery O2 Flow Rate FiO2 01/22/22 09:02 59 145/79 (101) Baseline EKG: Baseline EKG: NSR, RBBB Summary After explaining the procedure to the patient, he signed a consent and then brought to the stress nuclear laboratory. Patient received 0.4 mg Lexiscan for stress test, ECG, heart rate and blood pressure were monitored continuously. Resting and stress dose of radio tracer were injected, imaging was acquired and reviewed in short axis, horizontal long axis and vertical long axis views. TID: 0.98 SSS: 6 SDS: 6 EF: 52 1. Patient tolerated Lexiscan well 2. Baseline sinus rhythm with right bundle branch block persisted during test 3. Diaphragmatic attenuation with reversible ischemia involving the mid to apical inferior wall 4. Normal left ventricular size with normal contractility, ejection fraction 52% Copy Copies To 1: [facility] – [place] KATTY FONSECA MD Jan 22, 2022 11:12
== END ==
LOC: CARD 08:00
PROVIDERS: ATTEND Internal Medicine Cardiovascular Disease
DX: I48.0 Paroxysmal atrial fibrillation (principal)
CPT/HCPCS: 78452; 93017; A9502

== ENCOUNTER 2022-01-31 08:27 | Day surgery (SDC) | payer MEDICARE ==
[2022-01-31] VITALS (7 sets, daily range): BP systolic 128–135; BP diastolic 69–81
[~2022-01-31] VITALS: Ht 180.3 cm; Wt 83.0 kg
[~2022-01-31 08:27] MED LIST changes: -CATHETER FLUSH 10 ML SYR IVP PRN; -REGADENOSON 0.4 MG/5 ML SYR (LEXISCAN) IV ONE
[2022-01-31] MEDS ORDERED: NS IV 1000 ML 1,000 ML ONE (08:58)
[2022-01-31] MEDS ORDERED: LIDOCAINE 1% INJ 30 ML (XYLOCAINE) VIAL ONE (08:58)
[2022-01-31] MEDS ORDERED: HEParin (CATH LAB) 2,000 ML IV ONE (08:58)
[2022-01-31] MEDS ORDERED: NS IV 1000 ML 1,000 ML IV SCH ×2 (09:00→11:45)
[2022-01-31 09:22] LABS: BILIRUBIN,URINE NEGATIVE (NEGATIVE); CLARITY,URINE CLEAR; COLOR,URINE YELLOW; GLUCOSE, URINE (UA) 1+ (NEGATIVE); KETONES,URINE NEGATIVE (NEGATIVE); LEUKOCYTE ESTERASE ,URINE NEGATIVE (NEGATIVE); NITRITE,URINE NEGATIVE (NEGATIVE); PROTEIN,URINE NEGATIVE (NEGATIVE)
[2022-01-31 09:23] LABS: HEMATOCRIT 41 % (40-54); HEMOGLOBIN 13.4 g/dL (13.3-17.7); MEAN CORPUSCULAR HEMOGLOBIN 32 pg (25-34); MEAN CORPUSCULAR HGB CONC 33 g/dL (32-36); MEAN CORPUSCULAR VOLUME 100 fL (80-99); MEAN PLATELET VOLUME 10.2 fL (9.0-12.2); PLATELET COUNT 205 10^3/uL (130-400); WHITE BLOOD COUNT 4.9 10^3/uL (4.3-11.0)
[2022-01-31 09:31] LABS: BACTERIA,URINE NEGATIVE /HPF; RBC,URINE RARE /HPF; WBC,URINE RARE /HPF
[2022-01-31 09:33] LABS: INR 0.9 (0.8-1.4); PROTHROMBIN TIME PATIENT 12.6 SEC (12.2-14.7)
--- NOTE | 2022-01-31 09:38 | Diagnostic Imaging Report ---
INDICATION: Cardiac catheterization. COMPARISON: 03/15/2019. FINDINGS: The heart is mildly enlarged, increased from the prior exam. There is some mild prominence of the upper lobe pulmonary veins but no convincing evidence for maris edema. There is some prominence of the interstitial lung markings which appear similar to the prior exam. No alveolar consolidation or pneumonia. IMPRESSION: Mild increased heart size and venous caliber but no pleural pathology, convincing evidence for edema, or focal pneumonia. Dictated by: Dictated on workstation # [id number]
[2022-01-31 09:43] LABS: ALBUMIN 4.3 GM/DL (3.2-4.5); BILIRUBIN,TOTAL 0.8 MG/DL (0.1-1.0); CALCIUM 9.6 MG/DL (8.5-10.1); CREATININE SERUM 1.36 MG/DL (0.60-1.30); TOTAL PROTEIN 7.6 GM/DL (6.4-8.2)
[2022-01-31] MEDS ORDERED: ATOR20TA66 PO (09:52)
[2022-01-31] MEDS ORDERED: MULT-1136 PO (09:52)
[2022-01-31] MEDS ORDERED: NF-ALLE180 PO (09:52)
[2022-01-31] MEDS ORDERED: GABA-486 PO (09:52)
[2022-01-31] MEDS ORDERED: PANT20TA18 PO (09:52)
--- NOTE | 2022-01-31 10:07 | Cardiac Procedure Note-CS/ASA ---
Pre-Procedure Note Pre-Op Procedure Note Date of Available H&P: Jan 23, 2022 Date H&P Reviewed: Jan 31, 2022 Time H&P Reviewed: 10:07 History & Physical: H&P Reviewed, Patient Examed, No changes noted Pre-Operative Diagnosis: CAD Conscious Sedation Pre-Proced Time 10:07 ASA Score 3 For ASA 3 and 4: Consider anesthesia and medical clearance. Also, for patients with a history of failed moderate sedation consider anesthesia. Airway Lungs Heart ASA score ASA 1: a normal healthy patient ASA 2: a patient with a mild systemic disease (mid diabetes, controlled hypertension, obesity ASA 3: a patient with a severe systemic disease that limits activity (angina, COPD, prior Myocardial infarction) ASA 4: a patient with an incapacitating disease that is a constant threat to life (CHF, renal failure) ASA 5: a moribund patient not expected to survive 24 hrs. (ruptured aneurysm) ASA 6: a declared brain- patient whose organs are being harvested. For emergent operations, add the letter E after the classification Mallampati Classification Grade 3 Sedation Plan Analgesia, Amnesia, Plan communicated to team members, Discussed options with patient/fam, Discussed risks with patient/fam The patient is an appropriate candidate to undergo the planned procedure, sedation, and anesthesia. The patient immediately re-assessed prior to indication. KATTY JORDAN MD Jan 31, 2022 10:07
[2022-01-31] MEDS ORDERED: fentaNYL INJ 100 MCG/2 ML AMP ONE (10:11)
[2022-01-31] MEDS ORDERED: VERAPAMIL 5 MG/2 ML (CALAN) VIAL IV ONE (10:11)
[2022-01-31] MEDS ORDERED: HEParin 1000 UNIT/ML (10ML VIAL) FOR BOLUS ONE (10:12)
[2022-01-31] MEDS ORDERED: MIDAZOLAM 5 MG/5 ML (VERSED) VIAL ONE (10:12)
[2022-01-31] MEDS ORDERED: NITRO DRIP 25000 MCG/D5W 250 ML IV ONE (10:12)
[2022-01-31] MEDS ORDERED: ASPIRIN 325 MG (5 GR) TABLET ONE (11:27)
[2022-01-31] MEDS ORDERED: TICAGRELOR 90 MG TABLET (BRILINTA) PO ONE (11:28)
--- NOTE | 2022-01-31 11:42 | Cardiac Cath Report ---
Cardiac Cath Report Physician (s)/Boot And Saddle Repair Person (s) Physician KATTY JORDAN MD Pre-Procedure Diagnosis Pre-Procedure Diagnosis: CAD Post-Procedure Note Procedure Start Date: Jan 31, 2022 Name of Procedure: Left heart catheterization Stenting to the right coronary artery Findings/Procedure Note PROCEDURE NOTE: 86-year-old gentleman with history of coronary artery disease, had an abnormal stress test, scheduled for cardiac catheterization possible PTCA. After explaining the procedure to the patient, all pros and cons were explained, all questions were answered. The patient signed the consent and then he was placed on the cardiac catheterization laboratory. Groin was prepped SL fashion local anesthesia was used. Sheath placed in the right radial artery, I had difficulty advancing the J-wire through the brachial artery, I used baby J-wire and advanced it, there is significant tortuosity in the brachiocephalic artery which made maneuvering the catheter difficult. I crossed the valve and did left ventricular pressure then pullback LV to aorta was done then exchanged the catheter using a long J-wire and used Olvin left catheter engage the left system and angiogram was done then exchanged the catheter again and used Olvin right catheter and engage the right coronary system. Patient has severe stenosis in the mid right coronary artery, given a total of 7000 units of heparin, Olvin right guide was advanced, BMW wire was advanced and parked distally and primary stenting with a franklin point 3.5 x 23 mm stent deployed under 16 olivia up to 3.7 mm with excellent results. At the end of the procedure the sheath was removed. Vascular band was used FINDINGS: Hemodynamics LV 123/12, end-diastolic pressure of 12 Aorta 123/65 mean of 90 ANATOMY: Left Main is free of obstructive disease Left Anterior Descending has mild calcification with mild disease nonobstructive disease up to 20 to 30% stenosis in the mid LAD Left Circumflex has mild disease nonobstructive disease, up to 20% stenosis in the mid circumflex artery Right Coronary Artery has 70% stenosis in the mid right coronary artery successful primary stenting using franklin point 3.5 x 23 mm expanded to 3.7 mm with excellent result with no residual stenosis LV Gram was not done, pressure was measured CONCLUSION: 1. Severe stenosis in the mid right coronary artery with successful primary stenting using 3.5 x 23 mm franklin point stent expanded to 3.7 mm with excellent results 2. Otherwise mild coronary artery disease nonobstructive disease 3. Normal left ventricular end-diastolic pressure DISCUSSION AND RECOMMENDATION: Patient was loaded with aspirin and Brilinta. Continue to monitor as an outpatient Anesthesia Type: Conscious Sedation Estimated blood loss (mL): 25 ml Contrast Amount: 70 ml Total Radiation Dose: 805 mGy Post-Procedure Diagnosis Post-operative diagnosis: Chest pain Coronary artery disease Hypertension Hyperlipidemia KATTY JORDAN MD Jan 31, 2022 11:42
[2022-01-31] MEDS ORDERED: TICA90TA PO (11:43)
--- NOTE | 2022-01-31 11:44 | Discharge Inst-Post CATH ---
Discharge Inst-CATH/EP Problems Reviewed?: Yes Post Cardiac Cath/EP D/C Inst Follow Up/Plan Appointment with Dr. Fonseca's office in 4 weeks <b>CARDIAC CATH/EP PROCEDURE DISCHARGE INSTRUCTIONS</b> ACTIVITY * Go Home directly and rest. * Limit activity of the leg (or wrist if it was used) for 7 days including aerobics, swimming, jogging, bicycling, etc. * Restrict stair-climbing for 7 days if possible, if not, climb up with your non-cath leg, then bring together on the same step. * Avoid lifting, pushing, pulling or excessive movement of the affected extremity for 7 days. * Customary sexual activity may be resumed after 2 days-use caution not to use a position that strains or causes pain to the affected extremity. * No driving for 24 hours. * NO SMOKING. * Avoid straining for bowel movements for 7 days. * Gentle walking on level ground is allowed. * Returning to work will depend on the type of procedure and the results. Your doctor will discuss this with you. CALL YOUR DOCTOR FOR ANY OF THE FOLLOWING: *If bleeding from the puncture site occurs- Apply gentle pressure to site with clean cloth and call your doctor or EMS. * If a knot or lump forms under the skin, increases in size, or causes pain. * If bruising appears to be worsening or moving further down your leg instead of disappearing. * Temperature above 101 F. CARE OF YOUR GROIN INCISION; * Bruising or purple discoloration of the skin near the puncture site is common. * You may shower only, no bathtub bathing for 5 days. Be careful to avoid slipping as your leg may feel stiff. * If a closure device was used on your femoral artery, please see the attached guide regarding care of the device and your leg. * Leave dressing on FOR 24 hours. CARE OF YOUR WRIST INCISION; * Bruising or purple discoloration of the skin near the puncture site is common. * You may shower. * DO NOT submerge wrist. * Leave dressing on FOR 24 hours. KATTY FONSECA MD Jan 31, 2022 11:44
[2022-01-31] MEDS ORDERED: TICAGRELOR 90 MG TABLET (BRILINTA) PO SCH (21:00)
[2022-02-01] MEDS ORDERED: ASPIRIN E.C. 81 MG (ECOTRIN) TAB PO SCH (09:00)
== END 2022-01-31 16:12 ==
LOC: CATH 08:27 → CSD 11:37 → CATH 16:12
PROVIDERS: ATTEND Internal Medicine Cardiovascular Disease
DX: I25.10 Atherosclerotic heart disease of native coronary artery without angina pectoris (principal); I10 Essential (primary) hypertension; E78.5 Hyperlipidemia, unspecified; Z87.891 Personal history of nicotine dependence; I51.7 Cardiomegaly; I34.0 Nonrheumatic mitral (valve) insufficiency; I48.0 Paroxysmal atrial fibrillation; E78.2 Mixed hyperlipidemia; I65.23 Occlusion and stenosis of bilateral carotid arteries; E11.9 Type 2 diabetes mellitus without complications
CPT/HCPCS: 71045; 80053; 81000; 85027; 85610; 85730; 87081; 93005; 93458; C1769 ×2; C1874; C1887; C1894; C9600; 36415

== ENCOUNTER 2022-02-08 00:59 | Emergency (ER) | payer MEDICARE ==
[~2022-02-08] VITALS: Ht 155 cm; Wt 82.0 kg
[~2022-02-08 00:59] MED LIST changes: +ATOR20TA66 PO; +GABA-486 PO; +MULT-1136 PO; +NF-ALLE180 PO; +PANT20TA18 PO; +TICA90TA PO
--- NOTE | 2022-02-08 01:17 | ED EENT ---
History of Present Illness General Chief Complaint: Nasal Problems Stated Complaint: NOSE BLEED Source: patient Exam Limitations: no limitations History of Present Illness Date Seen by Provider: Feb 08, 2022 Time Seen by Provider: 01:10 Initial Comments 86-year-old male presents to the emergency department today for nosebleed. Symptoms present off and on for the last 3 days but tonight he could not get it to stop. He does take Xarelto for atrial fibrillation. Allergies and Home Medications Allergies Coded Allergies: No Known Drug Allergies (Unverified , 01/07/19) Patient Home Medication List Home Medication List Reviewed: Yes Aspirin (Aspirin EC) 81 Mg Tablet.dr, 81 MG PO 1800, (Reported) Entered as Reported by: ZEHRA COLBERT on 01/03/21 140 Atorvastatin Calcium (Atorvastatin Calcium) 20 Mg Tablet, 20 MG PO HS, (Reported) Entered as Reported by: BETO FREEMAN on 01/31/22951 Cholecalciferol (Vitamin D3) (Vitamin D3) 50 Mcg Capsule, 50 MCG PO DAILY, (Reported) Entered as Reported by: ZEHRA COLBERT on 01/03/211402 Cyanocobalamin (Vitamin B-12) (Vitamin B-12) 2,500 Mcg Tab.subl, 2,500 MCG SL DAILY, (Reported) Entered as Reported by: ZEHRA COLBERT on 01/03/211402 Donepezil HCl (Donepezil HCl) 10 Mg Tablet, 10 MG PO HS, (Reported) Entered as Reported by: ZEHRA COLBERT on 01/03/211402 Fexofenadine HCl (Fexofenadine HCl) 180 Mg Tablet, 180 MG PO DAILY, (Reported) Entered as Reported by: BETO FREEMAN on 01/31/22951 Folic Acid (Folic Acid) 0.4 Mg Tablet, 1.2 MG PO [id number], (Reported) Entered as Reported by: TJ GONZALEZ on 01/08/191006 Gabapentin (Gabapentin) 100 Mg Capsule, 100 MG PO HS, (Reported) Entered as Reported by: BETO FREEMAN on 01/31/22951 Glipizide (Glipizide) 10 Mg Tablet, 10 MG PO BID, (Reported) Entered as Reported by: ZEHRA COLBERT on 01/03/211402 Lisinopril (Lisinopril) 20 Mg Tablet, 20 MG PO 1800, (Reported) Entered as Reported by: ZEHRA COLBERT on 01/03/21 1403 Methotrexate Sodium (Methotrexate) 2.5 Mg Tablet, 10 MG PO SUN, (Reported) Entered as Reported by: TJ GONZALEZ on 01/08/19 1011 Multivitamin (Multivitamin) 1 Each Tablet, 1 EACH PO DAILY, (Reported) Entered as Reported by: BETO FREEMAN on 01/31/22 0952 Pantoprazole Sodium (Pantoprazole Sodium) 20 Mg Tablet.dr, 20 MG PO DAILY, (Reported) Entered as Reported by: BETO FREEMAN on 01/31/22 0952 Rivaroxaban (Xarelto) 20 Mg Tablet, 20 MG PO 1800, (Reported) Entered as Reported by: ZEHRA COLBERT on 01/03/21 140 Tamsulosin HCl (Flomax) 0.4 Mg Cap, 0.4 MG PO DAILY, (Reported) Entered as Reported by: MAYKEL LOPEZ on 02/14/21 1409 Ticagrelor (Brilinta) 90 Mg Tablet, 90 MG PO BID Prescribed by: KATTY JORDAN on 01/31/22 1143 Review of Systems Review of Systems Constitutional: no symptoms reported Eyes: No Symptoms Reported Ears: No Symptoms Reported Nose: epistaxis Mouth: no symptoms reported Throat: no symptoms reported Respiratory: no symptoms reported Cardiovascular: no symptoms reported Gastrointestinal: no symptoms reported Musculoskeletal: no symptoms reported Skin: no symptoms reported Neurological: No Symptoms Reported Hematologic/Lymphatic: No Symptoms Reported Immunological/Allergic: no symptoms reported Past Vsxghwr-Omzwrf-Lbeufo Hx Patient Social History Tobacco Use?: No Use of E-Cig and/or Vaping dev: No Substance use?: Yes Alcohol Use?: No Immunizations Up To Date Tetanus Booster (TDap): Unknown Influenza Vaccine Up-to-Date: Yes; Up-to-Date First/Initial COVID19 Vaccinat: 04/2020 Second COVID19 Vaccination Andrew: 05/2020 Seasonal Allergies Seasonal Allergies: No Past Medical History Surgeries: Yes (CARPAL TUNNEL, NECK, SHOULDER, KNEE) Appendectomy, Orthopedic Respiratory: Yes COPD Currently Using CPAP: No Cardiac: Yes Atrial Fibrillation, High Cholesterol, Hypertension Neurological: No Genitourinary: Yes Prostate Problems Gastrointestinal: Yes (DIVERTICULITIS) Musculoskeletal: No Endocrine: Yes Diabetes, Non-Insulin dep HEENT: Yes Cataract Loss of Vision: Denies Hearing Impairment: Hard of Hearing, Hearing Aide Right, Hearing Aide Left Cancer: No Psychosocial: Yes Depression Integumentary: Yes Psoriasis Blood Disorders: No Family Medical History Reviewed Nursing Family Hx CANCER 19 MOTHER No Pertinent Family Hx Physical Exam Vital Signs Vital Signs - First Documented 02/08/22 01:05 Temp 36.9 Pulse 99 Resp 16 B/P (MAP) 152/76 (101) Pulse Ox 99 O2 Delivery Room Air Height, Weight, BMI Height: '" Weight: 165lbs. 0.0oz. 74.433975dn; 25.53 BMI Method: General Appearance: WD/WN, no apparent distress Nose: normal inspection, other (Recent bleeding in the left nare anteriorly. No active bleeding.) Mouth/Throat: normal mouth inspection, pharynx normal Neck: full range of motion, supple, normal inspection Cardiovascular: regular rate, rhythm, no edema, no gallop, no JVD, no murmur Respiratory: chest non-tender, lungs clear, normal breath sounds, no respiratory distress, no accessory muscle use Gastrointestinal: normal bowel sounds, non tender, soft, no organomegaly, no pu lsatile mass Neurologic/Psychiatric: alert, normal mood/affect, oriented x 3 Skin: normal color, warm/dry Progress/Results/Core Measures Results/Orders My Orders Orders - SALTY COTTO DO Oxymetazoline 0.05% Nasal Maalaea (Afrin 0. (02/08/22 09:00) Oxymetazoline 0.05% Nasal Maalaea (Afrin 0. (02/08/22 01:24) Vital Signs/I&O 02/08/22 02/08/22 01:05 02:08 Temp 36.9 Pulse 99 52 Resp 16 20 B/P (MAP) 152/76 (101) 135/78 Pulse Ox 99 99 O2 Delivery Room Air Room Air Departure Communication (Admissions) Patient is hemodynamically stable with normal vital signs. Initially tried pressure alone. Nosebleed recurred. Used Afrin and then pressure in no bleeding after about 45 minutes of monitoring. Patient discharged with instructions to stop his Xarelto for 2 days. Should symptoms recur he will use Afrin and pressure. If this happens more than twice he will return to the emergency department. There is no evidence for anemia or other complication at this time. Impression Primary Impression: Epistaxis Disposition: 01 HOME, SELF-CARE Condition: Stable Departure-Patient Inst. Referrals: TJ SALES APRN (PCP) Primary Care Physician [facility] (Family) Primary Care Physician Patient Instructions: Nosebleeds (DC) Add. Discharge Instructions: Stop your Xarelto for the next 2 days. Do not blow your nose or putting anything in your nose for 2 days. Should your bleeding recur, use 2 sprays of Afrin in each nostril and place the clamp provided for 30 minutes. If this does not fix your bleeding after 2 attempts then return to the emergency department. All discharge instructions reviewed with patient and/or family. Voiced understanding. SALTY COTTO DO Feb 08, 2022 01:17
[2022-02-08] MEDS ORDERED: OXYMETAZOLINE (AFRIN) 0.05% NA 30 ML BTL ONE (01:24)
[2022-02-08 02:08] VITALS: BP 135/78
[2022-02-08] MEDS ORDERED: OXYMETAZOLINE (AFRIN) 0.05% NA 30 ML BTL SCH (09:00)
== END 2022-02-08 02:08 | disposition home or self-care (01) ==
LOC: EDUNIT# 00:59 → ER FS 01:02
DX: R04.0 Epistaxis (principal); I48.91 Unspecified atrial fibrillation; Z79.01 Long term (current) use of anticoagulants
CPT/HCPCS: 99282

== ENCOUNTER 2022-02-23 03:01 | Emergency (ER) | payer MEDICARE ==
[2022-02-23] MEDS ORDERED: TRANEXAMIC ACID 100 MG/ML 10 ML INJECTION ONE (03:15)
--- NOTE | 2022-02-23 03:17 | ED General ---
General Chief Complaint: General Problems/Pain Stated Complaint: LEGS BLEEDING Source of Information: Patient Exam Limitations: No Limitations History of Present Illness Date Seen by Provider: Feb 23, 2022 Time Seen by Provider: 03:03 Initial Comments 86-year-old male with past medical history of CAD with stenting on Xarelto and Brilinta coming in due to nosebleeding and bleeding from some scabs on his knees. Started earlier in the night. He did not do anything to aggravate it. He applied pressure to all of the wounds, they continued to bleed through them. He did take all of his medicines today including his Xarelto tonight. Denies any chest pain, shortness of breath, abdominal pain, nausea, vomiting, diarrhea, fever, chills, weakness, numbness, or any other concerns. Allergies and Home Medications Allergies Coded Allergies: No Known Drug Allergies (Unverified , 01/07/19) Patient Home Medication List Home Medication List Reviewed: Yes Aspirin (Aspirin EC) 81 Mg Tablet.dr, 81 MG PO 1800, (Reported) Entered as Reported by: ZEHRA COLBERT on 01/03/21 140 Atorvastatin Calcium (Atorvastatin Calcium) 20 Mg Tablet, 20 MG PO HS, (Reported) Entered as Reported by: BETO FREEMAN on 01/31/22 0952 Cholecalciferol (Vitamin D3) (Vitamin D3) 50 Mcg Capsule, 50 MCG PO DAILY, (Reported) Entered as Reported by: ZEHRA COLBERT on 01/03/211402 Cyanocobalamin (Vitamin B-12) (Vitamin B-12) 2,500 Mcg Tab.subl, 2,500 MCG SL DAILY, (Reported) Entered as Reported by: ZEHRA COLBERT on 01/03/211402 Donepezil HCl (Donepezil HCl) 10 Mg Tablet, 10 MG PO HS, (Reported) Entered as Reported by: ZEHRA COLBERT on 01/03/21 140 Fexofenadine HCl (Fexofenadine HCl) 180 Mg Tablet, 180 MG PO DAILY, (Reported) Entered as Reported by: BETO FREEMAN on 01/31/22 09 Folic Acid (Folic Acid) 0.4 Mg Tablet, 1.2 MG PO TamiTPerryFrSa, (Reported) Entered as Reported by: TJ GONZALEZ on 01/08/191006 Gabapentin (Gabapentin) 100 Mg Capsule, 100 MG PO HS, (Reported) Entered as Reported by: BETO FREEMAN on 01/31/22 09 Glipizide (Glipizide) 10 Mg Tablet, 10 MG PO BID, (Reported) Entered as Reported by: ZEHRA COLBERT on 01/03/21 140 Lisinopril (Lisinopril) 20 Mg Tablet, 20 MG PO 1800, (Reported) Entered as Reported by: ZEHRA COLBERT on 01/03/21 140 Methotrexate Sodium (Methotrexate) 2.5 Mg Tablet, 10 MG PO SUN, (Reported) Entered as Reported by: TJ GONZALEZ on 01/08/19 1011 Multivitamin (Multivitamin) 1 Each Tablet, 1 EACH PO DAILY, (Reported) Entered as Reported by: BETO FREEMAN on 01/31/22 09 Pantoprazole Sodium (Pantoprazole Sodium) 20 Mg Tablet.dr, 20 MG PO DAILY, (Reported) Entered as Reported by: BETO FREEMAN on 01/31/22951 Rivaroxaban (Xarelto) 20 Mg Tablet, 20 MG PO 1800, (Reported) Entered as Reported by: ZEHRA COLBERT on 01/03/21 140 Tamsulosin HCl (Flomax) 0.4 Mg Cap, 0.4 MG PO DAILY, (Reported) Entered as Reported by: MAYKEL LOPEZ on 02/14/21 140 Ticagrelor (Brilinta) 90 Mg Tablet, 90 MG PO BID Prescribed by: KATTY JORDAN on 01/31/22 1143 Review of Systems Review of Systems Constitutional: No fever EENTM: epistaxis Respiratory: no symptoms reported Cardiovascular: no symptoms reported Gastrointestinal: no symptoms reported Genitourinary: no symptoms reported Musculoskeletal: no symptoms reported Skin: see HPI Psychiatric/Neurological: No Symptoms Reported Hematologic/Lymphatic: See HPI Immunological/Allergic: no symptoms reported All Other Systems Reviewed Negative Unless Noted: Yes Past Dgmrelr-Cuzjlb-Solkzf Hx Patient Social History Tobacco Use?: No Immunizations Up To Date Tetanus Booster (TDap): Unknown First/Initial COVID19 Vaccinat: 04/2020 Second COVID19 Vaccination Andrew: 05/2020 Seasonal Allergies Seasonal Allergies: No Past Medical History Surgeries: Yes (CARPAL TUNNEL, NECK, SHOULDER, KNEE) Appendectomy, Coronary Stent, Orthopedic Respiratory: Yes COPD Currently Using CPAP: No Cardiac: Yes Atrial Fibrillation, High Cholesterol, Hypertension Neurological: No Genitourinary: Yes Prostate Problems Gastrointestinal: Yes (DIVERTICULITIS) Musculoskeletal: No Endocrine: Yes Diabetes, Non-Insulin dep HEENT: Yes Cataract Loss of Vision: Denies Hearing Impairment: Hard of Hearing, Hearing Aide Right, Hearing Aide Left Cancer: No Psychosocial: Yes Depression Integumentary: Yes Psoriasis Blood Disorders: No Family Medical History CANCER 19 MOTHER No Pertinent Family Hx Physical Exam Vital Signs Vital Signs - First Documented 02/23/22 03:03 Temp 36.4 Pulse 62 Resp 18 B/P (MAP) 150/64 (92) Pulse Ox 98 O2 Delivery Room Air Capillary Refill : Height, Weight, BMI Height: '" Weight: 165lbs. 0.0oz. 74.260261xg; 34.00 BMI Method: General Appearance: No Apparent Distress, WD/WN Eyes: Bilateral Eye Normal Inspection HEENT: PERRL/EOMI, Pharynx Normal, Other (Dried blood in bilateral nares with no active bleeding) Neck: Full Range of Motion, Normal Inspection, Non Tender, Supple Respiratory: Chest Non Tender, Lungs Clear, Normal Breath Sounds, No Accessory Muscle Use, No Respiratory Distress Cardiovascular: Regular Rate, Rhythm, No Edema, Normal Peripheral Pulses Gastrointestinal: Normal Bowel Sounds, Non Tender, Soft; No Distended, No Guarding Back: Normal Inspection, No CVA Tenderness, No Vertebral Tenderness Extremity: Normal Capillary Refill, Normal Range of Motion, Non Tender, No Calf Tenderness, No Pedal Edema, Other (Bilateral shins with punctate wounds with small drops of blood that is nearly hemostatic) Neurologic/Psychiatric: Alert, Oriented x3, No Motor/Sensory Deficits, Normal Mood/Affect Skin: Normal Color, Warm/Dry Lymphatic: No Adenopathy Progress/Results/Core Measures Suspected Sepsis SIRS Temperature: Pulse: Respiratory Rate: Laboratory Tests 02/23/22 03:19: White Blood Count 4.2L Blood Pressure / Mean: Laboratory Tests 02/23/22 03:19: Platelet Count 371 Results/Orders Lab Results Laboratory Tests Test 02/23/22 03:19 Range/Units White Blood Count 4.2 L 4.3-11.0 10^3/uL Red Blood Count 2.86 L 4.30-5.52 10^6/uL Hemoglobin 9.3 L 13.3-17.7 g/dL Hematocrit 29 L 40-54 % Mean Corpuscular Volume 100 H 80-99 fL Mean Corpuscular Hemoglobin 33 25-34 pg Mean Corpuscular Hemoglobin Concent 33 32-36 g/dL Red Cell Distribution Width 14.5 10.0-14.5 % Platelet Count 371 130-400 10^3/uL Mean Platelet Volume 9.1 9.0-12.2 fL Immature Granulocyte % (Auto) 1 % Neutrophils (%) (Auto) 50 42-75 % Lymphocytes (%) (Auto) 26 12-44 % Monocytes (%) (Auto) 14 H 0-12 % Eosinophils (%) (Auto) 8 0-10 % Basophils (%) (Auto) 1 0-10 % Neutrophils # (Auto) 2.1 1.8-7.8 10^3/uL Lymphocytes # (Auto) 1.1 1.0-4.0 10^3/uL Monocytes # (Auto) 0.6 0.0-1.0 10^3/uL Eosinophils # (Auto) 0.4 H 0.0-0.3 10^3/uL Basophils # (Auto) 0.0 0.0-0.1 10^3/uL Immature Granulocyte # (Auto) 0.0 0.0-0.1 10^3/uL My Orders Orders - DIANA LOPEZ MD Tranexamic Acid Injection (Cyklokapron I (02/23/22 03:15) Cbc With Automated Diff (02/23/22 03:18) Comprehensive Metabolic Panel (02/23/22 03:18) Protime With Inr (02/23/22 03:18) Partial Thromboplastin Time (02/23/22 03:18) Medications Given in ED Current Medications Medications Dose Ordered Sig/Gena Route Start Time Stop Time Status Last Admin Dose Admin Tranexamic Acid ONCE ONCE NA 02/23/22 03:15 02/23/22 03:16 DC 02/23/22 03:19 1,000 MG Vital Signs/I&O 02/23/22 03:03 Temp 36.4 Pulse 62 Resp 18 B/P (MAP) 150/64 (92) Pulse Ox 98 O2 Delivery Room Air Capillary Refill : Progress Note : Progress Note 86-year-old male with above history coming in due to mild bleeding is noticed in bilateral shins. ABCs were intact and vitals were stable on presentation. Physical exam with him being nearly hemostatic and the after mentioned areas. TXA soaked gauze was applied to the bilateral shins, and was also sprayed to his bilateral naris. All bleeding stopped afterwards. I believe he stable for discharge with outpatient follow-up. He was sent home with strict return precautions. Departure Impression Primary Impression: Epistaxis Additional Impressions: Bleeding from wound Anticoagulated Disposition: HOME, SELF-CARE Condition: Improved Departure-Patient Inst. Decision time for Depature: 04:00 Referrals: TJ SALES APRN (PCP/Family) Primary Care Physician Patient Instructions: Nosebleeds ED Add. Discharge Instructions: If you eating later at home, I want you to hold that dose of Xarelto until later in the day. Apply pressure to the area and wrapped in the Mateo bandage if you are bleeding. If you have bleeding from your nose, use a spray that you have at home, and then hold pressure for 15 minutes. If you have continued bleeding that will not stop either call your doctor or come into the ER. DIANA LOPEZ MD Feb 23, 2022 03:17
[2022-02-23 03:24] LABS: BASOPHILS % (AUTO) 1 % (0-10); EOSINOPHILS # (AUTO) 0.4 10^3/uL (0.0-0.3); EOSINOPHILS % (AUTO) 8 % (0-10); HEMATOCRIT 29 % (40-54); HEMOGLOBIN 9.3 g/dL (13.3-17.7); LYMPHOCYTES # (AUTO) 1.1 10^3/uL (1.0-4.0); LYMPHOCYTES % (AUTO) 26 % (12-44); MEAN CORPUSCULAR HEMOGLOBIN 33 pg (25-34); MEAN CORPUSCULAR HGB CONC 33 g/dL (32-36); MEAN CORPUSCULAR VOLUME 100 fL (80-99); MEAN PLATELET VOLUME 9.1 fL (9.0-12.2); MONOCYTES # (AUTO) 0.6 10^3/uL (0.0-1.0); MONOCYTES % (AUTO) 14 % (0-12); NEUTROPHILS # (AUTO) 2.1 10^3/uL (1.8-7.8); NEUTROPHILS % (AUTO) 50 % (42-75); PLATELET COUNT 371 10^3/uL (130-400); WHITE BLOOD COUNT 4.2 10^3/uL (4.3-11.0)
[2022-02-23 03:38] LABS: INR 1.7 (0.8-1.4); PROTHROMBIN TIME PATIENT 20.8 SEC (12.2-14.7)
[2022-02-23 03:52] LABS: ALBUMIN 3.4 GM/DL (3.2-4.5); BILIRUBIN,TOTAL 0.3 MG/DL (0.1-1.0); CALCIUM 9.2 MG/DL (8.5-10.1); CREATININE SERUM 1.33 MG/DL (0.60-1.30); POTASSIUM 4.2 MMOL/L (3.6-5.0); TOTAL PROTEIN 6.1 GM/DL (6.4-8.2)
[2022-02-23 03:55] VITALS: BP 150/64
== END 2022-02-23 03:58 | disposition home or self-care (01) ==
LOC: EDUNIT# 03:01 → ER FS 03:04
DX: R04.0 Epistaxis (principal); R58 Hemorrhage, not elsewhere classified; Z86.79 Personal history of other diseases of the circulatory system; I48.91 Unspecified atrial fibrillation; Z79.01 Long term (current) use of anticoagulants; Z95.9 Presence of cardiac and vascular implant and graft, unspecified; Z28.310 Unvaccinated for COVID-19
CPT/HCPCS: 36415; 80053; 85025; 85610; 85730

== ENCOUNTER → 2022-04-05 | Outpatient (CLI) | payer MEDICARE ==
--- NOTE | 2022-04-05 13:30 | Diagnostic Imaging Report ---
PROCEDURE: MR imaging cervical spine without contrast. TECHNIQUE: Multiplanar, multisequence MR imaging of the cervical spine was performed without contrast. INDICATION: Chronic neck pain. COMPARISON: MRI cervical spine without contrast 11/03/2020. FINDINGS: Grade 1 anterolisthesis of C4 on C5. Vertebral body heights preserved. Moderate degenerative endplate changes at C5-C7. No abnormal signal in the cervical spinal cord. The visualized paravertebral soft tissues demonstrate no acute findings. C2-C3: Uncovertebral and facet arthropathy result in severe left and moderate right neural foraminal narrowing. Central disc protrusion results in mild spinal canal narrowing. C3-C4: Central disc protrusion results in severe spinal canal stenosis. Moderate to severe neural foraminal narrowing. C4-C5: Central disc protrusion and ligamentous hypertrophy result in moderate to severe spinal canal stenosis. Facet arthropathy also contributes to moderate to severe bilateral neural foraminal narrowing. C5-C6: Disc osteophyte complex and ligamentous hypertrophy result in severe spinal canal stenosis. Severe bilateral neural foraminal narrowing. C6-C7: Central disc protrusion and ligamentous hypertrophy result in severe spinal canal stenosis. Severe bilateral neural foraminal narrowing. C7-T1: Uncovertebral joint hypertrophy results and severe left neural foraminal narrowing. Moderate spinal canal stenosis. IMPRESSION: 1. Spondylotic changes are similar to the prior exam and continue to result in high-grade spinal canal stenosis at C3-C7. 2. Diffuse high-grade bilateral neural foraminal narrowing. 3. No abnormal signal in the cervical spinal cord is identified. Dictated by: Dictated on workstation # [id number]
--- NOTE | 2022-04-05 14:54 | Diagnostic Imaging Report ---
CLINICAL INDICATIONS: Patient is having chronic C-spine and L-spine pain. EXAM: MRI of the lumbar spine without contrast. Sequences include sagittal T2, sagittal T1, sagittal T2 fat-sat, and axial T2. COMPARISON: MRI of the lumbar spine without contrast dated 11/03/2020. FINDINGS: There is no acute lumbar spine fracture or dislocation. There is Modic type II degenerative signal changes throughout the lumbar spine. There are hypertrophic spurs involving the lumbar spine. There is multilevel facet arthropathy. There is no significant paraspinal soft tissue abnormality. The visualized portions of the distal thoracic spinal cord, conus medullaris, and cauda equina nerve roots are unremarkable. The conus medullaris tip is seen at the upper L2 vertebral body level. T12-L1 and L1-L2: Unremarkable. L2-L3: There is mild bilateral facet arthropathy. Stable subtle left-sided disk bulge. There is no significant central spinal canal or neural foramen narrowing. L3-L4: There is a diffuse disk bulge with mild bilateral facet arthropathy. There is no significant central canal stenosis. There is mild bilateral neural foramen narrowing. There is no significant central canal stenosis. L4-L5: Stable diffuse disk bulge with superimposed small disk protrusion/herniation the right anterior aspect of the disk. This disk protrusion has decreased in the interim. There is moderate bilateral neural foramen narrowing. There is no significant central canal stenosis. L5-S1: Stable diffuse disk bulge with hypertrophic disk spurs in the far right lateral region extending into the right foraminal region. There is stable moderate right neural foramen narrowing and no significant left neural foramen narrowing. There is no significant central canal stenosis. IMPRESSION: 1: There is no acute lumbar spine fracture or dislocation. 2: There is multilevel lumbar spine degenerative disk disease which is described detailed above. There is slight decreased size of a small disk herniation in the right anterior aspect of the L4-L5 level. Otherwise, the remainder lumbar spine is not significantly changed in interim. Dictated by: Dictated on workstation # [id number]
== END ==
LOC: RAD 11:54
PROVIDERS: ATTEND Orthopaedic Surgery Orthopaedic Surgery of the Spine
DX: M47.892 Other spondylosis, cervical region (principal); M48.02 Spinal stenosis, cervical region; M51.36 Other intervertebral disc degeneration, lumbar region; M51.26 Other intervertebral disc displacement, lumbar region; M47.816 Spondylosis without myelopathy or radiculopathy, lumbar region; M48.061 Spinal stenosis, lumbar region without neurogenic claudication; M51.27 Other intervertebral disc displacement, lumbosacral region; M46.07 Spinal enthesopathy, lumbosacral region
CPT/HCPCS: 72141; 72148